=== PATIENT | female | born 1935 | race Caucasian/White ===

== ENCOUNTER 2019-03-30 14:40 | Inpatient (IN) | payer MEDICARE ==
[~2019-03-30] VITALS: Ht 165.1 cm; Wt 77.3 kg
[~2019-03-30 14:40] MED LIST: QUEtiapine 25 MG TABLET. PO SCH
[2019-03-30 15:18] LABS: HEMOGLOBIN 11.8 g/dL (12.0-15.5); RED BLOOD COUNT 3.71 x10^6/uL (3.50-5.40); RED CELL DISTRIBUTION WIDTH 13.6 % (11.5-14.5); WHITE BLOOD COUNT 8.7 x10^3/uL (4.0-11.0)
[2019-03-30 15:26] LABS: CALCIUM 8.7 mg/dL (8.5-10.1); CREATININE 1.3 mg/dL (0.6-1.0); GFR 39.3; MAGNESIUM 1.7 mg/dL (1.8-2.4); POTASSIUM 3.2 mmol/L (3.5-5.1)
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
[2019-03-30] MEDS ORDERED: POTASSIUM CHLORIDE 20 MEQ TABLET.ER. PO ONE (18:45)
[2019-03-30 19:33] LABS: BACTERIA,URINE MOD /HPF (0-FEW); BILIRUBIN,URINE NEG (NEG); CLARITY,URINE HAZY; COLOR,URINE YELLOW; GLUCOSE,URINE NEG (NEG); HYALINE CASTS, URINE FEW /HPF; NITRITE,URINE NEG (NEG); RBC,URINE RARE /HPF (0-2); SQUAMOUS EPITHELIAL CELL,UR FEW /LPF
[2019-03-30] MEDS ORDERED: levoFLOXacin 500 MG TABLET PO ONE (20:00)
[2019-03-30 20:30] VITALS: BP 175/90
[2019-03-30] MEDS ORDERED: MAGNESIUM HYDROXIDE 2,400 MG/30 ML ORAL.SUSP. PO PRN (20:45)
[2019-03-30] MEDS ORDERED: MAG HYDROX/AL HYDROX/SIMETH 30 ML ORAL.SUSP PO PRN (20:45)
[2019-03-30] MEDS ORDERED: METHYL SALICYLATE/MENTHOL TOPICAL OINTMENT 57GM TUBE. TP PRN (20:45)
--- NOTE | 2019-03-30 20:57 | PDOC ---
Exam Note: Marbin Note: Please also refer to the separate dictated note~for this date of service dictated separately. Discussed the patient with Nursing staff reviewed the chart.~Reviewed interim history and current functioning. Reviewed vital signs,~Labs/ Radiology~and current medications noted below. Continue current treatment with the changes noted in the dictated addendum note Assessment: Vital Signs/I&O: Vital Signs Date Time Temp Pulse Resp B/P (MAP) Pulse Ox O2 Delivery O2 Flow Rate FiO2 03/30/19 15:03 97.9 86 18 96 Room Air Labs: Laboratory Tests Test 03/30/19 15:04 03/30/19 18:10 White Blood Count 8.7 x10^3/uL (4.0-11.0) Red Blood Count 3.71 x10^6/uL (3.50-5.40) Hemoglobin 11.8 g/dL (12.0-15.5) L Hematocrit 36.0 % (36.0-47.0) Mean Corpuscular Volume 97 fL (79-100) Mean Corpuscular Hemoglobin 32 pg (25-35) Mean Corpuscular Hemoglobin Concent 33 g/dL (31-37) Red Cell Distribution Width 13.6 % (11.5-14.5) Platelet Count 222 x10^3/uL (140-400) Sodium Level 143 mmol/L (136-145) Potassium Level 3.2 mmol/L (3.5-5.1) L Chloride Level 106 mmol/L (98-107) Carbon Dioxide Level 29 mmol/L (21-32) Anion Gap 8 (6-14) Blood Urea Nitrogen 17 mg/dL (7-20) Creatinine 1.3 mg/dL (0.6-1.0) H Estimated GFR (Cockcroft-Gault) 39.3 Glucose Level 114 mg/dL (70-99) H Calcium Level 8.7 mg/dL (8.5-10.1) Magnesium Level 1.7 mg/dL (1.8-2.4) L Urine Collection Type Unknown Urine Color Yellow Urine Clarity Hazy Urine pH 5.5 Urine Specific [place] 1.010 Urine Protein Neg (NEG-TRACE) Urine Glucose (UA) Neg mg/dL (NEG) Urine Ketones (Stick) Neg mg/dL (NEG) Urine Blood Neg (NEG) Urine Nitrite Neg (NEG) Urine Bilirubin Neg (NEG) Urine Urobilinogen Dipstick 1.0 mg/dL (0.2 mg/dL) Urine Leukocyte Esterase Mod (NEG) Urine RBC Rare /HPF (0-2) Urine WBC 11-20 /HPF (0-4) Urine Squamous Epithelial Cells Few /LPF Urine Bacteria Mod /HPF (0-FEW) Urine Hyaline Casts Few /HPF Urine Mucus Slight /LPF Current Medications: Meds: Current Medications Medications (Trade) Dose Ordered Sig/Michael Route PRN Reason Start Time Stop Time Status Last Admin Dose Admin Potassium Chloride (Klor-Con) 40 meq 1X ONCE PO 03/30/19 18:45 03/30/19 18:46 DC 03/30/19 18:45 I have reviewed the current psychotropics carefully including drug interactions. Risk benefit ratio favors no change other than as noted in my dictated progress note. Diagnosis: Problems: (1) Disruptive behavior ELMA DOLAN MD Mar 30, 2019 20:57
[2019-03-30] MEDS ORDERED: LEVO75TA5 PO (22:21)
[2019-03-30] MEDS ORDERED: KETO15CR2 TP (22:21)
[2019-03-30] MEDS ORDERED: RAMI10CA53 PO (22:21)
[2019-03-30] MEDS ORDERED: NITR100C PO (22:21)
[2019-03-30] MEDS ORDERED: SUMA25TA3 PO (22:21)
[2019-03-30] MEDS ORDERED: ASPI-630 PO (22:21)
[2019-03-30] MEDS ORDERED: CITA10TA4 PO (22:21)
[2019-03-30] MEDS ORDERED: HYDR-2769 PO (22:21)
[2019-03-30] MEDS ORDERED: OLAN5TAB3 PO (22:21)
[2019-03-30] MEDS ORDERED: DONE5TAB7 PO (22:21)
[2019-03-30] MEDS: ACETAMINOPHEN 325 MG TABLET PO PRN (23:28)
--- NOTE | 2019-03-31 00:07 | EKG ---
[address] [address] Test Date: 2019-03-30 Test Time: 14:59:33 Pat Name: SHELDON QUINTANILLA Department: Room: Gender: F Digital Solutions Architect: : 1935 Requested By: SANG MAYNARD Order Number: [id number] Reading MD: Measurements Intervals [place] Rate: 81 P: 36 UT: 138 QRS: -35 QRSD: 88 T: 8 QT: 378 QTc: 445 Interpretive Statements SINUS RHYTHM ABNORMAL LEFT AXIS DEVIATION LEFT ANTERIOR FASCICULAR BLOCK CONSIDER LEFT VENTRICULAR HYPERTROPHY QRS(T) CONTOUR ABNORMALITY CONSIDER ANTEROSEPTAL MYOCARDIAL DAMAGE ABNORMAL ECG RI6.01 No previous ECG available for comparison
[2019-03-31] MEDS: LEVOTHYROXINE 75 MCG TABLET PO SCH (05:45)
[2019-03-31 06:48] VITALS: BP 160/83
[2019-03-31 07:06] LABS: BASO # 0.1 x10^3/uL (0.0-0.2); BASO % 1 % (0-3); EOS # 0.2 x10^3/uL (0.0-0.7); EOS % 3 % (0-3); GFR 53.2; HEMOGLOBIN 12.2 g/dL (12.0-15.5); LYMPH % 25 % (24-48); MEAN CORPUSCULAR HEMOGLOBIN 32 pg (25-35); MEAN CORPUSCULAR HGB CONC 33 g/dL (31-37); MEAN CORPUSCULAR VOLUME 97 fL (79-100); MONO # 0.7 x10^3/uL (0.0-1.1); MONO % 8 % (0-9); NEUT # 5.1 x10^3uL (1.8-7.7); NEUT % 64 % (31-73); PLATELET COUNT 246 x10^3/uL (140-400); POTASSIUM 3.9 mmol/L (3.5-5.1); RED BLOOD COUNT 3.81 x10^6/uL (3.50-5.40); RED CELL DISTRIBUTION WIDTH 13.3 % (11.5-14.5)
[2019-03-31] MEDS ORDERED: BUSP15TA PO (07:54)
[2019-03-31] MEDS ORDERED: NITROFURANTOIN MONOHYD/M-CRYST 100 MG CAPSULE. PO SCH (09:00)
[2019-03-31] MEDS: ASPIRIN 81 MG TAB.CHEW PO SCH (09:19)
[2019-03-31] MEDS: levoFLOXacin 250 MG TABLET PO SCH (09:20)
[2019-03-31] MEDS: LISINOPRIL 20 MG TABLET PO SCH (09:20)
[2019-03-31] MEDS: CITALOPRAM 10 MG TABLET. PO SCH (09:20)
[2019-03-31] MEDS: KETOCONAZOLE 2% TOPICAL CREAM 30GM TUBE. TP SCH (09:27)
[2019-03-31 16:20] VITALS: BP 167/83
[2019-03-31] MEDS: DONEPEZIL HCL 5 MG TABLET. PO SCH (20:33)
[2019-03-31] MEDS: LACTOBACILLUS RHAMNOSUS GG 1 CAPSULE. PO SCH (20:34)
[2019-03-31] MEDS: OLANZapine 5 MG TABLET PO SCH (20:34)
--- NOTE | 2019-03-31 21:07 | PDOC ---
Exam Note: Marbin Note: Please also refer to the separate dictated note~for this date of service dictated separately.~Patient seen individually. Discussed the patient with Nursing staff reviewed the chart.~Reviewed interim history and current functioning. Reviewed vital signs,~Labs/ Radiology~and current medications noted below. Continue current treatment with the changes noted in the dictated addendum note Assessment: Vital Signs/I&O: Vital Signs Date Time Temp Pulse Resp B/P (MAP) Pulse Ox O2 Delivery O2 Flow Rate FiO2 03/31/19 16:20 98.2 98 20 167/83 (111) 93 03/31/19 06:48 Room Air I & O 03/30/19 03/30/19 03/31/19 15:00 23:00 07:00 Intake Total 120 ml Balance 120 ml Labs: Laboratory Tests Test 03/31/19 06:47 03/31/19 07:35 03/31/19 11:32 03/31/19 17:22 White Blood Count 8.0 x10^3/uL (4.0-11.0) Red Blood Count 3.81 x10^6/uL (3.50-5.40) Hemoglobin 12.2 g/dL (12.0-15.5) Hematocrit 37.0 % (36.0-47.0) Mean Corpuscular Volume 97 fL (79-100) Mean Corpuscular Hemoglobin 32 pg (25-35) Mean Corpuscular Hemoglobin Concent 33 g/dL (31-37) Red Cell Distribution Width 13.3 % (11.5-14.5) Platelet Count 246 x10^3/uL (140-400) Neutrophils (%) (Auto) 64 % (31-73) Lymphocytes (%) (Auto) 25 % (24-48) Monocytes (%) (Auto) 8 % (0-9) Eosinophils (%) (Auto) 3 % (0-3) Basophils (%) (Auto) 1 % (0-3) Neutrophils # (Auto) 5.1 x10^3uL (1.8-7.7) Lymphocytes # (Auto) 2.0 x10^3/uL (1.0-4.8) Monocytes # (Auto) 0.7 x10^3/uL (0.0-1.1) Eosinophils # (Auto) 0.2 x10^3/uL (0.0-0.7) Basophils # (Auto) 0.1 x10^3/uL (0.0-0.2) Sodium Level 144 mmol/L (136-145) Potassium Level 3.9 mmol/L (3.5-5.1) Chloride Level 105 mmol/L (98-107) Carbon Dioxide Level 29 mmol/L (21-32) Anion Gap 10 (6-14) Blood Urea Nitrogen 19 mg/dL (7-20) Creatinine 1.0 mg/dL (0.6-1.0) Estimated GFR (Cockcroft-Gault) 53.2 Glucose Level 126 mg/dL (70-99) H Calcium Level 9.0 mg/dL (8.5-10.1) Glucose (Fingerstick) 142 mg/dL (70-99) H 110 mg/dL (70-99) H 147 mg/dL (70-99) H Test 03/31/19 19:24 Glucose (Fingerstick) 145 mg/dL (70-99) H Current Medications: Meds: Current Medications Medications (Trade) Dose Ordered Sig/Michael Route PRN Reason Start Time Stop Time Status Last Admin Dose Admin Levofloxacin (Levaquin) 250 mg DAILY PO 03/31/19 09:00 03/31/19 09:20 Citalopram Hydrobromide (CeleXA) 10 mg DAILY PO 03/31/19 09:00 03/31/19 09:20 Donepezil HCl (Aricept) 5 mg QHS PO 03/31/19 21:00 03/31/19 20:33 Olanzapine (ZyPREXA) 5 mg QHS PO 03/31/19 21:00 03/31/19 20:34 Aspirin (Children'S Aspirin) 81 mg DAILY PO 03/31/19 09:00 03/31/19 09:19 Levothyroxine Sodium (Synthroid) 75 mcg DAILY06 PO 03/31/19 06:00 03/31/19 05:45 Nitrofurantoin Macrocrystals (Macrobid) 100 mg BID PO 03/31/19 09:00 03/31/19 17:39 DC 03/31/19 09:20 Lisinopril (Prinivil) 20 mg DAILY PO 03/31/19 09:00 03/31/19 09:20 Olanzapine (ZyPREXA ZYDIS) 2.5 mg PRN Q2HR PRN PO PSYCHOSIS 03/31/19 07:55 03/31/19 09:20 Lactobacillus Rhamnosus (Culturelle) 1 cap BID PO 03/31/19 21:00 03/31/19 20:34 I have reviewed the current psychotropics carefully including drug interactions. Risk benefit ratio favors no change other than as noted in my dictated progress note. Diagnosis: Problems: (1) Disruptive behavior (2) Anxiety disorder (3) Major neurocognitive disorder, due to vascular disease, with behavioral disturbance, mild (4) Impulse control disorder (5) Dementia, vascular, with delusions (6) Dementia, vascular, with depression (7) Dementia in Alzheimer's disease with delusions (8) Dementia in Alzheimer's disease with depression ELMA DOLAN MD Mar 31, 2019 21:07
[2019-04-01 00:06] LABS: HEMOGLOBIN A1C 6.2 % (4.8-5.6)
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
[2019-04-01] MEDS: LEVOTHYROXINE 75 MCG TABLET PO SCH (05:33)
[2019-04-01 06:26] VITALS: BP 174/93
[2019-04-01] MEDS: CITALOPRAM 10 MG TABLET. PO SCH (08:35)
[2019-04-01] MEDS: LACTOBACILLUS RHAMNOSUS GG 1 CAPSULE. PO SCH ×2 (08:35→20:07)
[2019-04-01] MEDS: levoFLOXacin 250 MG TABLET PO SCH (08:35)
[2019-04-01] MEDS: LISINOPRIL 20 MG TABLET PO SCH (08:35)
[2019-04-01] MEDS: ASPIRIN 81 MG TAB.CHEW PO SCH (08:35)
[2019-04-01] MEDS: KETOCONAZOLE 2% TOPICAL CREAM 30GM TUBE. TP SCH (09:00)
[2019-04-01] MEDS: HYDROcodone/APAP 10/325 1 TAB TABLET PO PRN (10:55)
[2019-04-01 16:03] VITALS: BP 140/80
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
[2019-04-01] MEDS: OLANZapine 5 MG TABLET PO SCH (20:07)
[2019-04-01] MEDS: QUEtiapine 25 MG TABLET. PO SCH (20:08)
[2019-04-01] MEDS: ACETAMINOPHEN 325 MG TABLET PO PRN (20:08)
[2019-04-01] MEDS: DONEPEZIL HCL 5 MG TABLET. PO SCH (20:08)
--- NOTE | 2019-04-01 21:06 | PDOC ---
Exam Note: Marbin Note: Please also refer to the separate dictated note~for this date of service dictated separately.~Patient seen individually. Discussed the patient with Nursing staff reviewed the chart.~Reviewed interim history and current functioning. Reviewed vital signs,~Labs/ Radiology~and current medications noted below. Continue current treatment with the changes noted in the dictated addendum note Assessment: Vital Signs/I&O: Vital Signs Date Time Temp Pulse Resp B/P (MAP) Pulse Ox O2 Delivery O2 Flow Rate FiO2 04/01/19 16:03 97.8 78 20 140/80 (100) 97 04/01/19 12:10 Room Air I & O 03/31/19 03/31/19 04/01/19 15:00 23:00 07:00 Intake Total 480 ml 200 ml 240 ml Balance 480 ml 200 ml 240 ml Labs: Laboratory Tests Test 04/01/19 07:16 Glucose (Fingerstick) 122 mg/dL (70-99) H Current Medications: Meds: Current Medications Medications (Trade) Dose Ordered Sig/Michael Route PRN Reason Start Time Stop Time Status Last Admin Dose Admin Quetiapine Fumarate (SEROquel) 12.5 mg QHS PO 04/01/19 21:00 04/01/19 20:08 I have reviewed the current psychotropics carefully including drug interactions. Risk benefit ratio favors no change other than as noted in my dictated progress note. Diagnosis: Problems: (1) Anxiety disorder (2) Major neurocognitive disorder, due to vascular disease, with behavioral disturbance, mild (3) Impulse control disorder (4) Dementia, vascular, with delusions (5) Dementia, vascular, with depression (6) Dementia in Alzheimer's disease with delusions (7) Dementia in Alzheimer's disease with depression ELMA DOLAN MD Apr 01, 2019 21:06
[2019-04-02] MEDS: LEVOTHYROXINE 75 MCG TABLET PO SCH (05:39)
[2019-04-02 05:46] VITALS: BP 153/83
[2019-04-02] MEDS: CITALOPRAM 10 MG TABLET. PO SCH (08:52)
[2019-04-02] MEDS: ASPIRIN 81 MG TAB.CHEW PO SCH (08:52)
[2019-04-02] MEDS: LACTOBACILLUS RHAMNOSUS GG 1 CAPSULE. PO SCH ×2 (08:52→20:04)
[2019-04-02] MEDS: LISINOPRIL 20 MG TABLET PO SCH (08:53)
[2019-04-02] MEDS: KETOCONAZOLE 2% TOPICAL CREAM 30GM TUBE. TP SCH (09:00)
[2019-04-02 16:04] VITALS: BP 145/62
[2019-04-02] MEDS: DONEPEZIL HCL 5 MG TABLET. PO SCH (20:04)
[2019-04-02] MEDS: OLANZapine 5 MG TABLET PO SCH (20:04)
[2019-04-02] MEDS: HYDROcodone/APAP 10/325 1 TAB TABLET PO PRN (20:04)
[2019-04-02] MEDS: QUEtiapine 25 MG TABLET. PO SCH (20:04)
--- NOTE | 2019-04-02 22:37 | PDOC ---
Exam Note: Marbin Note: Please also refer to the separate dictated note~for this date of service dictated separately.~Patient seen individually. Discussed the patient with Nursing staff reviewed the chart.~Reviewed interim history and current functioning. Reviewed vital signs,~Labs/ Radiology~and current medications noted below. Continue current treatment with the changes noted in the dictated addendum note Assessment: Vital Signs/I&O: Vital Signs Date Time Temp Pulse Resp B/P (MAP) Pulse Ox O2 Delivery O2 Flow Rate FiO2 04/02/19 21:06 18 97 Room Air 04/02/19 16:04 98.8 69 145/62 (89) I & O 04/01/19 04/01/19 04/02/19 15:00 23:00 07:00 Intake Total 480 ml 240 ml 240 ml Balance 480 ml 240 ml 240 ml Current Medications: I have reviewed the current psychotropics carefully including drug interactions. Risk benefit ratio favors no change other than as noted in my dictated progress note. Diagnosis: Problems: (1) Dementia (2) Disruptive behavior (3) Anxiety disorder (4) Major neurocognitive disorder, due to vascular disease, with behavioral disturbance, mild (5) Impulse control disorder (6) Dementia, vascular, with delusions (7) Dementia, vascular, with depression (8) Dementia in Alzheimer's disease with delusions (9) Dementia in Alzheimer's disease with depression ELMA DOLAN MD Apr 02, 2019 22:37
[2019-04-03 05:56] VITALS: BP 185/67
[2019-04-03] MEDS: LEVOTHYROXINE 75 MCG TABLET PO SCH (06:00)
[2019-04-03] MEDS: ASPIRIN 81 MG TAB.CHEW PO SCH (08:00)
[2019-04-03] MEDS: CITALOPRAM 10 MG TABLET. PO SCH (08:00)
[2019-04-03] MEDS: LISINOPRIL 20 MG TABLET PO SCH (08:03)
[2019-04-03] MEDS: LACTOBACILLUS RHAMNOSUS GG 1 CAPSULE. PO SCH ×2 (08:03→20:30)
[2019-04-03] MEDS: KETOCONAZOLE 2% TOPICAL CREAM 30GM TUBE. TP SCH (08:06)
[2019-04-03] MEDS: QUEtiapine 25 MG TABLET. PO SCH ×2 (12:27→20:30)
[2019-04-03 16:16] VITALS: BP 147/78
[2019-04-03] MEDS: DONEPEZIL HCL 5 MG TABLET. PO SCH (20:30)
[2019-04-03] MEDS: OLANZapine 5 MG TABLET PO SCH (20:30)
[2019-04-03] MEDS: HYDROcodone/APAP 10/325 1 TAB TABLET PO PRN (20:32)
--- NOTE | 2019-04-03 20:54 | PDOC ---
Exam Note: Marbin Note: Please also refer to the separate dictated note~for this date of service dictated separately.~Patient seen individually. Discussed the patient with Nursing staff reviewed the chart.~Reviewed interim history and current functioning. Reviewed vital signs,~Labs/ Radiology~and current medications noted below. Continue current treatment with the changes noted in the dictated addendum note Assessment: Vital Signs/I&O: Vital Signs Date Time Temp Pulse Resp B/P (MAP) Pulse Ox O2 Delivery O2 Flow Rate FiO2 04/03/19 20:32 18 94 04/03/19 16:16 97.9 103 147/78 (101) 04/02/19 21:06 Room Air I & O 04/02/19 04/02/19 04/03/19 15:00 23:00 07:00 Intake Total 240 ml 480 ml Balance 240 ml 480 ml Current Medications: Meds: Current Medications Medications (Trade) Dose Ordered Sig/Michael Route PRN Reason Start Time Stop Time Status Last Admin Dose Admin Quetiapine Fumarate (SEROquel) 12.5 mg 0900,1300 PO 04/03/19 13:00 04/03/19 12:27 I have reviewed the current psychotropics carefully including drug interactions. Risk benefit ratio favors no change other than as noted in my dictated progress note. Diagnosis: Problems: (1) Anxiety disorder (2) Major neurocognitive disorder, due to vascular disease, with behavioral disturbance, mild (3) Impulse control disorder (4) Dementia, vascular, with delusions (5) Dementia, vascular, with depression (6) Dementia in Alzheimer's disease with delusions (7) Dementia in Alzheimer's disease with depression ELMA DOLAN MD Apr 03, 2019 20:54
--- NOTE | 2019-04-03 22:16 | RAD ---
Exam: Left foot 3 views INDICATION: Swollen TECHNIQUE: Frontal, lateral and oblique views of the left foot Comparisons: None FINDINGS: Bone mineralization is normal. No acute or healed fractures. Soft tissues are unremarkable. Joint spaces are well-maintained. IMPRESSION: No acute osseous abnormality. Electronically signed by: Alma Edgar MD (04/03/2019 10:13 PM) [facility]
--- NOTE | 2019-04-03 22:39 | RAD ---
Exam: Left hand 3 views INDICATION: Swelling TECHNIQUE: Frontal, lateral and oblique views of the left hand Comparisons: None FINDINGS: Small osseous defect along the radial aspect of the base of the third metacarpal. 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 Bone mineralization is normal. Soft tissues are unremarkable. IMPRESSION: Question small fracture at the base of the third metacarpal seen only on oblique view. CT can better evaluate. Electronically signed by: Alma Edgar MD (04/03/2019 10:36 PM) [facility]
--- NOTE | 2019-04-04 00:15 | PN ---
DATE: 04/01/2019 PSYCHIATRIC PROGRESS NOTE This late entry 04/01/2019 covers the elements not covered in my initial note. SUBJECTIVE: I met with the patient in the evening. Per Fahad RN, the patient slept 8 hours previous night. She is "up and down all day" per nursing report. At times, she is calm, compliant, then confused, hyperverbal, wandering into other patient's rooms paranoid. She had Zyprexa p.r.n. with some relief. REVIEW OF SYSTEMS: No CV, , pulmonary, eye, ENT system symptoms on review. Reliability poor. MENTAL STATUS EXAM: Oriented to herself. Insight, judgment, recent and remote memory, attention, concentration, fund of knowledge poor, consistent with her diagnoses. IMPRESSION: Major neurocognitive disorder, Alzheimer, vascular with delusion, depression, behavioral disturbance; anxiety disorder, unspecified; impulse control disorder, unspecified. PLAN: Continue Celexa 10 mg a day, Aricept 5 mg a day, Zyprexa p.r.n. Start Seroquel 12.5 mg p.o. at bedtime for her psychosis and mood lability and agitation. Adjust as clinically indicated. ELMA DOLAN MD DR: YADIRA/nito JOB#: [id number] / [id number]
[2019-04-04] MEDS: HYDROcodone/APAP 10/325 1 TAB TABLET PO PRN ×2 (05:56→20:18)
[2019-04-04] MEDS: LEVOTHYROXINE 75 MCG TABLET PO SCH (05:58)
[2019-04-04 06:11] VITALS: BP 136/61
[2019-04-04] MEDS: CITALOPRAM 10 MG TABLET. PO SCH (08:09)
[2019-04-04] MEDS: ASPIRIN 81 MG TAB.CHEW PO SCH (08:10)
[2019-04-04] MEDS: QUEtiapine 25 MG TABLET. PO SCH ×3 (08:10→20:18)
[2019-04-04] MEDS: LACTOBACILLUS RHAMNOSUS GG 1 CAPSULE. PO SCH ×2 (08:10→20:17)
[2019-04-04] MEDS: LISINOPRIL 20 MG TABLET PO SCH (08:12)
[2019-04-04] MEDS: KETOCONAZOLE 2% TOPICAL CREAM 30GM TUBE. TP SCH (09:00)
[2019-04-04 15:20] VITALS: BP 131/81
--- NOTE | 2019-04-04 16:40 | RAD ---
Examination: CT UPPR EXTREMTY WO CONTRST LT History: Pain. Third metacarpal basilar fracture is questioned. Comparison/Correlation: Left hand 3 view x-ray exam Findings: Axial images of the left hand were obtained. Sagittal and coronal reformatted images were provided. Imaging was performed from the distal radial shaft level to the distal phalanges. Exam is limited due to inability to position the patient. First, metacarpal joint degenerative remodeling is present. Soft tissue calcifications are noted in the radiocarpal joint region. No acute fracture or bone destruction. Osteopenia is noted. Joint spaces are intact with no dislocation evident. Subcutaneous edema of the second digit proximally is seen. Mild subcutaneous emphysema at the dorsal aspect of the fourth and fifth metacarpophalangeal joint regions. Impression: No acute fracture. PQRS Compliance Statement: One or more of the following individualized dose reduction techniques were utilized for this examination: 1. Automated exposure control 2. Adjustment of the mA and/or kV according to patient size 3. Use of iterative reconstruction technique Electronically signed by: Silvio Ribeiro MD (04/04/2019 4:38 PM) [facility]
[2019-04-04] MEDS: DONEPEZIL HCL 5 MG TABLET. PO SCH (20:18)
[2019-04-04] MEDS: OLANZapine 5 MG TABLET PO SCH (20:18)
--- NOTE | 2019-04-04 21:39 | PDOC ---
Exam Note: Marbin Note: Please also refer to the separate dictated note~for this date of service dictated separately.~Patient seen individually. Discussed the patient with Nursing staff reviewed the chart.~Reviewed interim history and current functioning. Reviewed vital signs,~Labs/ Radiology~and current medications noted below. Continue current treatment with the changes noted in the dictated addendum note Assessment: Vital Signs/I&O: Vital Signs Date Time Temp Pulse Resp B/P (MAP) Pulse Ox O2 Delivery O2 Flow Rate FiO2 04/04/19 20:18 97 04/04/19 15:20 99.1 92 20 131/81 (98) 04/04/19 05:56 Room Air I & O 04/03/19 04/03/19 04/04/19 15:00 23:00 07:00 Intake Total 0 ml 360 ml Balance 0 ml 360 ml Current Medications: Meds: Current Medications Medications (Trade) Dose Ordered Sig/Michael Route PRN Reason Start Time Stop Time Status Last Admin Dose Admin Quetiapine Fumarate (SEROquel) 25 mg TID PO 04/04/19 21:00 04/04/19 20:18 Acetaminophen/ Hydrocodone Bitart (Lortab 10/325) 0.5 tab PRN Q4HRS PRN PO PAIN 04/04/19 20:00 04/04/19 20:18 I have reviewed the current psychotropics carefully including drug interactions. Risk benefit ratio favors no change other than as noted in my dictated progress note. Diagnosis: Problems: (1) Disruptive behavior (2) Anxiety disorder (3) Major neurocognitive disorder, due to vascular disease, with behavioral disturbance, mild (4) Impulse control disorder (5) Dementia, vascular, with delusions (6) Dementia, vascular, with depression (7) Dementia in Alzheimer's disease with delusions (8) Dementia in Alzheimer's disease with depression ELMA DOLAN MD Apr 04, 2019 21:39
--- NOTE | 2019-04-05 01:46 | PN ---
DATE: 04/03/2019 PSYCHIATRIC PROGRESS NOTE This late entry 04/03/2019 covers elements not covered in my initial note. SUBJECTIVE: I met with the patient in the evening. The patient slept 4-1/4 hours previous night. She has been anxious, restless, constantly moving. Received Zyprexa x 2 p.r.n. REVIEW OF SYSTEMS: No CV, , pulmonary, eye, ENT system symptoms on review. Reliability poor. MENTAL STATUS EXAM: Oriented to herself. Insight, judgment, recent and remote memory, attention, concentration, fund of knowledge poor, consistent with her diagnosis mentioned in my initial note. PLAN: No change from initial note, but we have increased the Seroquel, may need to increase further again depending on her progress. MAN German DOLAN MD DR: YADIRA/nito JOB#: [id number] / [id number]
--- NOTE | 2019-04-05 01:49 | PN ---
DATE: 04/02/2019 PSYCHIATRIC PROGRESS NOTE This late entry 04/02/2019 covers elements not covered in my initial note. SUBJECTIVE: I met with the patient evening of 04/02/2019. The patient slept 6 hours previous night. She has been anxious, restless, confused, delusional, believes she is working here, constantly up and down the hallway, difficult to redirect. REVIEW OF SYSTEMS: No CV, , pulmonary, eye, ENT system symptoms on review. Reliability poor. MENTAL STATUS EXAM: Oriented to herself. Insight, judgment, recent and remote memory, attention, concentration, fund of knowledge poor, consistent with her diagnosis mentioned in my initial note. PLAN: No change from initial note, but we will increase the Seroquel from 12.5 mg at bedtime to 12.5 mg t.i.d. Continue Zyprexa p.r.n., Celexa 10 mg a day, Aricept 5 mg a day for now. ELMA DOLAN MD DR: YADIRA/nito JOB#: [id number] / [id number]
[2019-04-05] MEDS: HYDROcodone/APAP 10/325 1 TAB TABLET PO PRN ×3 (02:57→23:45)
[2019-04-05] MEDS: ACETAMINOPHEN 325 MG TABLET PO PRN (05:25)
[2019-04-05] MEDS: LEVOTHYROXINE 75 MCG TABLET PO SCH (05:25)
[2019-04-05 05:41] VITALS: BP 137/74
[2019-04-05 07:09] LABS: BASO % 0 % (0-3); EOS % 1 % (0-3); HEMATOCRIT 36.5 % (36.0-47.0); HEMOGLOBIN 12.1 g/dL (12.0-15.5); LYMPH # 1.6 x10^3/uL (1.0-4.8); LYMPH % 15 % (24-48); MEAN CORPUSCULAR HEMOGLOBIN 32 pg (25-35); MEAN CORPUSCULAR HGB CONC 33 g/dL (31-37); MEAN CORPUSCULAR VOLUME 97 fL (79-100); MONO # 0.8 x10^3/uL (0.0-1.1); MONO % 8 % (0-9); NEUT # 7.9 x10^3uL (1.8-7.7); NEUT % 76 % (31-73); PLATELET COUNT 287 x10^3/uL (140-400); RED BLOOD COUNT 3.75 x10^6/uL (3.50-5.40); RED CELL DISTRIBUTION WIDTH 13.2 % (11.5-14.5); WHITE BLOOD COUNT 10.4 x10^3/uL (4.0-11.0)
[2019-04-05 07:22] LABS: ALBUMIN/GLOBULIN RATIO 0.7 (1.0-1.7); C REACTIVE PROTEIN 142.4 mg/L (0-3.3); CALCIUM 8.8 mg/dL (8.5-10.1); CREATININE 0.9 mg/dL (0.6-1.0); GFR 60.1; TOTAL BILIRUBIN 0.6 mg/dL (0.2-1.0); TOTAL PROTEIN 7.2 g/dL (6.4-8.2); URIC ACID 4.3 mg/dL (2.6-6.0)
[2019-04-05 08:13] LABS: SEDIMENTATION RATE 81 (0-25)
[2019-04-05] MEDS: KETOCONAZOLE 2% TOPICAL CREAM 30GM TUBE. TP SCH (08:38)
[2019-04-05] MEDS: LISINOPRIL 20 MG TABLET PO SCH (08:39)
[2019-04-05] MEDS: CITALOPRAM 10 MG TABLET. PO SCH (08:39)
[2019-04-05] MEDS: LACTOBACILLUS RHAMNOSUS GG 1 CAPSULE. PO SCH ×2 (08:39→20:31)
[2019-04-05] MEDS: QUEtiapine 25 MG TABLET. PO SCH ×3 (08:39→20:31)
[2019-04-05] MEDS: ASPIRIN 81 MG TAB.CHEW PO SCH (08:39)
[2019-04-05 16:00] VITALS: BP 114/77
--- NOTE | 2019-04-05 18:21 | RAD ---
VENOUS LOWER EXTREMITY LEFT History: Left lower extremity swelling Comparison: None. Discussion: Multiple longitudinal and transverse high resolution real-time images of the venous system of left lower extremity were obtained with color and Doppler sampling. The common femoral, superficial femoral, popliteal and proximal calf veins are all patent and demonstrate normal flow and compressibility. Normal respiratory phasicity and augmentation is present. Impression: 1. No evidence of deep vein thrombosis. Electronically signed by: Brian Pineda DO (04/05/2019 6:18 PM) [facility]
[2019-04-05] MEDS: DONEPEZIL HCL 5 MG TABLET. PO SCH (20:31)
--- NOTE | 2019-04-05 21:56 | PDOC ---
Exam Note: Marbin Note: Please also refer to the separate dictated note~for this date of service dictated separately.~Patient seen individually. Discussed the patient with Nursing staff reviewed the chart.~Reviewed interim history and current functioning. Reviewed vital signs,~Labs/ Radiology~and current medications noted below. Continue current treatment with the changes noted in the dictated addendum note Assessment: Vital Signs/I&O: Vital Signs Date Time Temp Pulse Resp B/P (MAP) Pulse Ox O2 Delivery O2 Flow Rate FiO2 04/05/19 16:00 98.4 74 16 114/77 (89) 96 04/04/19 05:56 Room Air I & O 04/04/19 04/04/19 04/05/19 15:00 23:00 07:00 Intake Total 240 ml 360 ml Balance 240 ml 360 ml Labs: Laboratory Tests Test 04/05/19 06:49 White Blood Count 10.4 x10^3/uL (4.0-11.0) Red Blood Count 3.75 x10^6/uL (3.50-5.40) Hemoglobin 12.1 g/dL (12.0-15.5) Hematocrit 36.5 % (36.0-47.0) Mean Corpuscular Volume 97 fL (79-100) Mean Corpuscular Hemoglobin 32 pg (25-35) Mean Corpuscular Hemoglobin Concent 33 g/dL (31-37) Red Cell Distribution Width 13.2 % (11.5-14.5) Platelet Count 287 x10^3/uL (140-400) Neutrophils (%) (Auto) 76 % (31-73) H Lymphocytes (%) (Auto) 15 % (24-48) L Monocytes (%) (Auto) 8 % (0-9) Eosinophils (%) (Auto) 1 % (0-3) Basophils (%) (Auto) 0 % (0-3) Neutrophils # (Auto) 7.9 x10^3uL (1.8-7.7) H Lymphocytes # (Auto) 1.6 x10^3/uL (1.0-4.8) Monocytes # (Auto) 0.8 x10^3/uL (0.0-1.1) Eosinophils # (Auto) 0.0 x10^3/uL (0.0-0.7) Basophils # (Auto) 0.0 x10^3/uL (0.0-0.2) Erythrocyte Sedimentation Rate 81 (0-25) H Sodium Level 140 mmol/L (136-145) Potassium Level 4.0 mmol/L (3.5-5.1) Chloride Level 103 mmol/L (98-107) Carbon Dioxide Level 26 mmol/L (21-32) Anion Gap 11 (6-14) Blood Urea Nitrogen 17 mg/dL (7-20) Creatinine 0.9 mg/dL (0.6-1.0) Estimated GFR (Cockcroft-Gault) 60.1 BUN/Creatinine Ratio 19 (6-20) Glucose Level 168 mg/dL (70-99) H Uric Acid 4.3 mg/dL (2.6-6.0) Calcium Level 8.8 mg/dL (8.5-10.1) Total Bilirubin 0.6 mg/dL (0.2-1.0) Aspartate Amino Transferase (AST) 14 U/L (15-37) L Alanine Aminotransferase (ALT) 18 U/L (14-59) Alkaline Phosphatase 107 U/L (46-116) C-Reactive Protein 142.4 mg/L (0-3.3) H Total Protein 7.2 g/dL (6.4-8.2) Albumin 3.0 g/dL (3.4-5.0) L Albumin/Globulin Ratio 0.7 (1.0-1.7) L Current Medications: I have reviewed the current psychotropics carefully including drug interactions. Risk benefit ratio favors no change other than as noted in my dictated progress note. Diagnosis: Problems: (1) Disruptive behavior (2) Anxiety disorder (3) Major neurocognitive disorder, due to vascular disease, with behavioral disturbance, mild (4) Impulse control disorder (5) Dementia, vascular, with delusions (6) Dementia, vascular, with depression (7) Dementia in Alzheimer's disease with delusions (8) Dementia in Alzheimer's disease with depression ELMA DOLAN MD Apr 05, 2019 21:55
--- NOTE | 2019-04-06 00:05 | PN ---
DATE: 04/04/2019 PSYCHIATRIC PROGRESS NOTE This late entry 04/04/2019 covers elements not covered in my initial note. SUBJECTIVE: I met with the patient evening of 04/04/2019. Per AMOL Acevedo, the patient slept 5-1/2 hours previous night. Previous night, she was delusional, anxious, restless, but redirectable. She continues to be quite paranoid, suspicious, during the day per nursing report, constantly up and down the hallway. Received Zyprexa Zydis x 2 due to her anxiety, restlessness, paranoia, irritability. She does have metacarpal fracture, left hand. Nursing staff wondered this could be attributed to her banging her hands on the door couple of days back. I will defer to Dr. Hylton. REVIEW OF SYSTEMS: No CV, , pulmonary, eye, ENT system symptoms on review. Reliability poor. MENTAL STATUS EXAM: Oriented to herself. Insight, judgment, recent and remote memory, attention, concentration, fund of knowledge poor, consistent with her diagnoses. IMPRESSION: Major neurocognitive disorder, Alzheimer, vascular with delusion, depression, behavioral disturbance; anxiety disorder, unspecified; impulse control disorder, unspecified. PLAN: Continue Seroquel, but we will increase this from 12.5 mg t.i.d. to 25 mg t.i.d. Continue Zyprexa p.r.n. and we will gradually discontinue the scheduled Zyprexa. Maintain Celexa 10 mg a day, may need to increase the Aricept, but it probably has little beneficial effect at this stage of her neurocognitive disorder. We will consider Depakote as a mood stabilizer if symptoms persist despite all of the above. MAN German DOLAN MD DR: YADIRA/nito JOB#: [id number] / [id number]
[2019-04-06] MEDS: LEVOTHYROXINE 75 MCG TABLET PO SCH (06:15)
[2019-04-06 06:27] VITALS: BP 132/87
[2019-04-06] MEDS: QUEtiapine 25 MG TABLET. PO SCH ×3 (08:12→19:50)
[2019-04-06] MEDS: ASPIRIN 81 MG TAB.CHEW PO SCH (08:12)
[2019-04-06] MEDS: LISINOPRIL 20 MG TABLET PO SCH (08:12)
[2019-04-06] MEDS: CITALOPRAM 10 MG TABLET. PO SCH (08:12)
[2019-04-06] MEDS: LACTOBACILLUS RHAMNOSUS GG 1 CAPSULE. PO SCH ×2 (08:12→19:49)
[2019-04-06] MEDS: HYDROcodone/APAP 10/325 1 TAB TABLET PO PRN ×2 (08:22→14:32)
[2019-04-06] MEDS: KETOCONAZOLE 2% TOPICAL CREAM 30GM TUBE. TP SCH (09:00)
--- NOTE | 2019-04-06 14:11 | RAD ---
EXAM: Limited bone scintigraphy. HISTORY: Elevated inflammatory markers, left hand inflammation. COMPARISON: CT 04/04/2019. FINDINGS: 22 mCi technetium 99m MDP was administered intravenously. Scintigraphic images of the hands and forearms was performed bilaterally after a delay. There is focal uptake in the region of the first carpometacarpal and triscaphe articulations. There are lesser foci of uptake in the region of the triquetrum/pisiform and proximal lunate. More diffusely, there is greater uptake throughout the skeleton of the left forearm and hand in comparison with the right. IMPRESSION: 1. Focal uptake within the carpus as detailed above may reflect osteoarthritis or possibly crystalline arthropathy given chondrocalcinosis on CT. 2. More diffuse mild uptake throughout the left hand and forearm in comparison with the right may reflect hyperemia throughout the left upper extremity, or possibly complex regional pain syndrome. Correlate with other data. Electronically signed by: Luis Desouza MD (04/06/2019 2:08 PM) [facility]
[2019-04-06 15:39] VITALS: BP 119/64
[2019-04-06] MEDS ORDERED: NAPROXEN 500 MG TABLET PO ONE (16:45)
[2019-04-06] MEDS: CHOLECALCIFEROL (VITAMIN D3) 50,000 UNIT CAPSULE PO SCH (17:17)
[2019-04-06] MEDS: CYANOCOBALAMIN (VITAMIN B-12) 1,000 MCG/ML VIAL IM SCH (17:19)
[2019-04-06] MEDS: DONEPEZIL HCL 5 MG TABLET. PO SCH (19:49)
[2019-04-06] MEDS: NAPROXEN 250 MG TABLET PO SCH (19:49)
--- NOTE | 2019-04-06 21:58 | PDOC ---
Exam Note: Marbin Note: Please also refer to the separate dictated note~for this date of service dictated separately.~Patient seen individually. Discussed the patient with Nursing staff reviewed the chart.~Reviewed interim history and current functioning. Reviewed vital signs,~Labs/ Radiology~and current medications noted below. Continue current treatment with the changes noted in the dictated addendum note Assessment: Vital Signs/I&O: Vital Signs Date Time Temp Pulse Resp B/P (MAP) Pulse Ox O2 Delivery O2 Flow Rate FiO2 04/06/19 17:15 18 99 04/06/19 15:39 98.7 97 119/64 (82) 04/06/19 14:32 Room Air I & O 04/05/19 04/05/19 04/06/19 15:00 23:00 07:00 Intake Total 720 ml 120 ml Balance 720 ml 120 ml Current Medications: Meds: Current Medications Medications (Trade) Dose Ordered Sig/Michael Route PRN Reason Start Time Stop Time Status Last Admin Dose Admin Vitamin D (Vitamin D3) 50,000 unit WEEKLY PO 04/06/19 17:00 04/06/19 17:17 Cyanocobalamin (Vitamin B-12) 1,000 mcg WEEKLY IM 04/06/19 17:00 04/06/19 17:19 Naproxen (Naprosyn) 500 mg ONCE ONCE PO 04/06/19 16:45 04/06/19 16:52 DC 04/06/19 17:19 Naproxen (Naprosyn) 250 mg TID PO 04/06/19 21:00 04/06/19 19:49 I have reviewed the current psychotropics carefully including drug interactions. Risk benefit ratio favors no change other than as noted in my dictated progress note. Diagnosis: Problems: (1) Disruptive behavior (2) Anxiety disorder (3) Major neurocognitive disorder, due to vascular disease, with behavioral disturbance, mild (4) Impulse control disorder (5) Dementia, vascular, with delusions (6) Dementia, vascular, with depression (7) Dementia in Alzheimer's disease with delusions (8) Dementia in Alzheimer's disease with depression ELMA DOLAN MD Apr 06, 2019 21:58
--- NOTE | 2019-04-07 04:41 | PN ---
DATE: 04/05/2019 PSYCHIATRIC PROGRESS NOTE This late entry of 04/05 covers elements not covered in my initial note. SUBJECTIVE: I met with the patient the evening of 04/05. Per AMOL Richard, the patient slept 5 hours the previous night. She was found in her bed the previous night trying to masturbate. She was quite elated when the family visited; grandiose and psychotic, confused. UA is less than 10,000 colonies, unremarkable. REVIEW OF SYSTEMS: No CV, , pulmonary, eye, ENT system symptoms on review. Reliability poor. MENTAL STATUS EXAMINATION: Oriented to herself. Insight, judgment, recent and remote memory, attention, concentration, fund of knowledge poor; consistent with her diagnoses. IMPRESSION: Major neurocognitive disorder, Alzheimer, vascular with delusion, depression, behavioral disturbance; anxiety disorder, unspecified; impulse control disorder, unspecified; psychotic disorder, unspecified. PLAN: Continue psychotropics from initial note. Stop the scheduled Zyprexa 5 mg at bedtime as she is on Seroquel 25 mg t.i.d. Maintain Celexa, Aricept for now together with Zyprexa p.r.n. Neuropsychological testing will be requested with Dr. Yeung. ELMA DOLAN MD DR: YADIRA/nito JOB#: [id number] / [id number]
[2019-04-07 05:55] VITALS: BP 109/58
[2019-04-07] MEDS: LEVOTHYROXINE 75 MCG TABLET PO SCH (06:19)
[2019-04-07] MEDS: LACTOBACILLUS RHAMNOSUS GG 1 CAPSULE. PO SCH ×2 (08:06→20:01)
[2019-04-07] MEDS: LISINOPRIL 20 MG TABLET PO SCH (08:06)
[2019-04-07] MEDS: NAPROXEN 250 MG TABLET PO SCH ×3 (08:06→20:01)
[2019-04-07] MEDS: CITALOPRAM 10 MG TABLET. PO SCH (08:07)
[2019-04-07] MEDS: QUEtiapine 25 MG TABLET. PO SCH ×3 (08:07→20:01)
[2019-04-07] MEDS: ASPIRIN 81 MG TAB.CHEW PO SCH (08:07)
[2019-04-07 15:56] VITALS: BP 129/77
[2019-04-07] MEDS: DONEPEZIL HCL 5 MG TABLET. PO SCH (20:02)
--- NOTE | 2019-04-07 21:28 | PDOC ---
Exam Note: Marbin Note: Please also refer to the separate dictated note~for this date of service dictated separately.~Patient seen individually. Discussed the patient with Nursing staff reviewed the chart.~Reviewed interim history and current functioning. Reviewed vital signs,~Labs/ Radiology~and current medications noted below. Continue current treatment with the changes noted in the dictated addendum note Assessment: Vital Signs/I&O: Vital Signs Date Time Temp Pulse Resp B/P (MAP) Pulse Ox O2 Delivery O2 Flow Rate FiO2 04/07/19 15:56 97.4 88 18 129/77 (94) 98 Room Air I & O 04/06/19 04/06/19 04/07/19 15:00 23:00 07:00 Intake Total 480 ml 360 ml Balance 480 ml 360 ml Current Medications: I have reviewed the current psychotropics carefully including drug interactions. Risk benefit ratio favors no change other than as noted in my dictated progress note. Diagnosis: Problems: (1) Disruptive behavior (2) Anxiety disorder (3) Major neurocognitive disorder, due to vascular disease, with behavioral disturbance, mild (4) Impulse control disorder (5) Dementia, vascular, with delusions (6) Dementia, vascular, with depression (7) Dementia in Alzheimer's disease with delusions (8) Dementia in Alzheimer's disease with depression ELMA DOLAN MD Apr 07, 2019 21:28
[2019-04-08] MEDS: LEVOTHYROXINE 75 MCG TABLET PO SCH (06:00)
[2019-04-08 06:30] VITALS: BP 133/59
[2019-04-08] MEDS: CITALOPRAM 10 MG TABLET. PO SCH (08:13)
[2019-04-08] MEDS: LACTOBACILLUS RHAMNOSUS GG 1 CAPSULE. PO SCH ×2 (08:13→20:24)
[2019-04-08] MEDS: ASPIRIN 81 MG TAB.CHEW PO SCH (08:13)
[2019-04-08] MEDS: QUEtiapine 25 MG TABLET. PO SCH ×2 (08:13→13:16)
[2019-04-08] MEDS: LISINOPRIL 20 MG TABLET PO SCH (08:14)
[2019-04-08] MEDS: NAPROXEN 250 MG TABLET PO SCH ×3 (08:20→20:25)
--- NOTE | 2019-04-08 12:49 | PN ---
DATE: 04/06/2019 PSYCHIATRIC PROGRESS NOTE This late entry 04/06/2019 covers elements not covered in my initial note. SUBJECTIVE: I met with the patient in the evening of 04/06/2019. Per AMOL Vásquez, the patient slept 5-3/4 hours previous night. She remains disorganized, more so in the morning, was in the wheelchair, later in the day secondary to impaired ambulation. She is having a bone scan. Speech is word salad. REVIEW OF SYSTEMS: No CV, , pulmonary, eye, ENT system symptoms on review. Reliability poor. MENTAL STATUS EXAM: Oriented to herself. Insight, judgment, recent and remote memory, attention, concentration, fund of knowledge poor, consistent with her diagnoses. IMPRESSION: Major neurocognitive disorder; Alzheimer's, vascular with delusion; depression, behavioral disturbance; psychotic disorder, unspecified; impulse control disorder, unspecified; anxiety disorder, unspecified. PLAN: Continue Celexa 10 mg a day, Aricept 5 mg a day, Seroquel 25 mg 3 times a day. Rest unchanged for now. MAN German DOLAN MD DR: YADIRA/nito JOB#: [id number] / [id number]
[2019-04-08] MEDS: ACETAMINOPHEN 325 MG TABLET PO PRN (13:16)
[2019-04-08] MEDS: SUMAtriptan SUCCINATE 50 MG TABLET PO PRN (14:34)
[2019-04-08 15:39] VITALS: BP 132/79
--- NOTE | 2019-04-08 19:47 | PN ---
DATE: 04/07/2019 This late entry 04/07/2019 covers elements not covered in my initial note. SUBJECTIVE: I met with the patient evening of 04/07/2019. The patient was also staffed at a treatment team meeting with the entire team morning of 04/07/2019. Appetite is 50%, slept 5 hours previous night, sexually inappropriate in the shower yesterday per nursing report, restless, inattentive, distractible, believed she works on the unit, somewhat delusional. We will check a CT head if not done one recently and she is having psychological testing done by Dr. Yeung as well. Later, I was informed, CT head was done in March at [facility] and we will get those results. REVIEW OF SYSTEMS: No CV, , pulmonary, eye, ENT system symptoms on review. Reliability poor. MENTAL STATUS EXAM: Oriented to herself. Insight, judgment, recent and remote memory, attention, concentration, fund of knowledge poor, consistent with her diagnosis. Per nursing report in the evening, she is walking and talking better, less delusional. LABORATORY DATA: Reviewed. IMPRESSION: Major neurocognitive disorder, Alzheimer, vascular with delusion, depression, behavioral disturbance; anxiety disorder, unspecified; impulse control disorder, unspecified; psychotic disorder, unspecified. PLAN: Continue psychotropics from initial note including Celexa, Aricept along with Seroquel. Make further adjustments as clinically indicated. MAN German DOLAN MD DR: YADIRA/nito JOB#: [id number] / [id number]
[2019-04-08] MEDS: DONEPEZIL HCL 5 MG TABLET. PO SCH (20:25)
[2019-04-08] MEDS: risperiDONE 0.25 MG TABLET. PO SCH (20:25)
--- NOTE | 2019-04-08 21:30 | PDOC ---
Exam Note: Marbin Note: Please also refer to the separate dictated note~for this date of service dictated separately.~Patient seen individually. Discussed the patient with Nursing staff reviewed the chart.~Reviewed interim history and current functioning. Reviewed vital signs,~Labs/ Radiology~and current medications noted below. Continue current treatment with the changes noted in the dictated addendum note Assessment: Vital Signs/I&O: Vital Signs Date Time Temp Pulse Resp B/P (MAP) Pulse Ox O2 Delivery O2 Flow Rate FiO2 04/08/19 15:39 97.5 71 16 132/79 (96) 99 04/07/19 15:56 Room Air I & O 04/07/19 04/07/19 04/08/19 15:00 23:00 07:00 Intake Total 840 ml 240 ml 240 ml Balance 840 ml 240 ml 240 ml Current Medications: Meds: Current Medications Medications (Trade) Dose Ordered Sig/Michael Route PRN Reason Start Time Stop Time Status Last Admin Dose Admin Risperidone (RisperDAL) 0.25 mg BID PO 04/08/19 21:00 04/08/19 20:25 I have reviewed the current psychotropics carefully including drug interactions. Risk benefit ratio favors no change other than as noted in my dictated progress note. Diagnosis: Problems: (1) Disruptive behavior (2) Anxiety disorder (3) Major neurocognitive disorder, due to vascular disease, with behavioral disturbance, mild (4) Impulse control disorder (5) Dementia, vascular, with delusions (6) Dementia, vascular, with depression (7) Dementia in Alzheimer's disease with delusions (8) Dementia in Alzheimer's disease with depression ELMA DOLAN MD Apr 08, 2019 21:30
[2019-04-09] MEDS: LEVOTHYROXINE 75 MCG TABLET PO SCH (04:55)
[2019-04-09 05:21] VITALS: BP 152/76
[2019-04-09] MEDS: NAPROXEN 250 MG TABLET PO SCH ×3 (08:30→20:38)
[2019-04-09] MEDS: LISINOPRIL 20 MG TABLET PO SCH (08:31)
[2019-04-09] MEDS: CITALOPRAM 10 MG TABLET. PO SCH (08:31)
[2019-04-09] MEDS: risperiDONE 0.25 MG TABLET. PO SCH ×2 (08:31→20:38)
[2019-04-09] MEDS: ASPIRIN 81 MG TAB.CHEW PO SCH (08:31)
[2019-04-09] MEDS: LACTOBACILLUS RHAMNOSUS GG 1 CAPSULE. PO SCH ×2 (08:31→20:38)
[2019-04-09] MEDS: SUMAtriptan SUCCINATE 50 MG TABLET PO PRN (12:16)
[2019-04-09 15:20] VITALS: BP 157/68
[2019-04-09] MEDS: DONEPEZIL HCL 5 MG TABLET. PO SCH (20:38)
[2019-04-10] MEDS ORDERED: LOPERAMIDE 2 MG/15 ML ORAL SUSP. PO PRN (00:15)
--- NOTE | 2019-04-10 00:23 | PN ---
DATE: 04/09/2019 SUBJECTIVE: The patient was seen today, met with the staff, chart reviewed and also covering for Dr. Wright. The patient has been cooperative, compliant with the treatment and also recently was complaining of feeling drowsy. OBSERVATION: VITAL SIGNS: Temperature 97.9, blood pressure 152/76, pulse 86, respiration 18, O2 sat 97%. Slept about 9 hours last night. Appetite fair. MEDICATIONS: The patient's current medications include Risperdal 0.25 mg b.i.d., Aricept 5 mg at night, Celexa 10 mg daily, olanzapine 2.5 mg q. 2 hours p.r.n. The patient's lab reviewed. ASSESSMENT: Major neurocognitive disorder, most likely Alzheimer's versus vascular with delusions, depression and behavioral disturbances; anxiety disorder, unspecified. PLAN: Continue with the current treatment plan. LENGTH OF STAY: 5-7 days. GALINA LIM MD DR: NIAN/nito JOB#: [id number] / [id number]
[2019-04-10 05:13] VITALS: BP 100/58
[2019-04-10] MEDS: LEVOTHYROXINE 75 MCG TABLET PO SCH (05:53)
[2019-04-10] MEDS: CITALOPRAM 10 MG TABLET. PO SCH (08:14)
[2019-04-10] MEDS: LACTOBACILLUS RHAMNOSUS GG 1 CAPSULE. PO SCH ×2 (08:14→19:39)
[2019-04-10] MEDS: NAPROXEN 250 MG TABLET PO SCH ×3 (08:14→19:39)
[2019-04-10] MEDS: risperiDONE 0.25 MG TABLET. PO SCH ×2 (08:14→19:39)
[2019-04-10] MEDS: ASPIRIN 81 MG TAB.CHEW PO SCH (08:15)
[2019-04-10] MEDS: LISINOPRIL 20 MG TABLET PO SCH (08:17)
[2019-04-10] MEDS ORDERED: LOPERAMIDE 2 MG CAPSULE PO PRN (12:45)
[2019-04-10 15:23] VITALS: BP 135/73
--- NOTE | 2019-04-10 15:50 | PN ---
DATE: 04/10/2019 SUBJECTIVE: The patient was seen today, met with the staff, chart reviewed. Staff reports no major behavior problems except for confusion and compliant with medications. OBSERVATION: VITAL SIGNS: Temperature 97.8, blood pressure 100/78, pulse 83, respirations 18, O2 sat 95%. Slept about 3 hours last night. The patient's appetite is fair. MEDICATIONS: The patient's current medications include Risperdal 0.25 mg twice a day, Aricept 5 mg at night, Celexa 10 mg daily, olanzapine 2.5 mg q. 2 hours p.r.n. The patient denies of any side effects to the medications. The patient's lab reviewed. ASSESSMENT: 1. Major neurocognitive disorder, most likely Alzheimer versus vascular with delusions, depression and behavioral disturbances. 2. Anxiety disorder, unspecified. PLAN: To continue with the treatment. LENGTH OF STAY: 5-7 days. GALINA LIM MD DR: NAIN/nito JOB#: [id number] / [id number]
[2019-04-10] MEDS: DONEPEZIL HCL 5 MG TABLET. PO SCH (19:39)
[2019-04-11] MEDS: LEVOTHYROXINE 75 MCG TABLET PO SCH (05:38)
[2019-04-11 06:44] VITALS: BP 123/74
[2019-04-11] MEDS: ASPIRIN 81 MG TAB.CHEW PO SCH (08:41)
[2019-04-11] MEDS: NAPROXEN 250 MG TABLET PO SCH ×3 (08:41→21:12)
[2019-04-11] MEDS: LISINOPRIL 20 MG TABLET PO SCH (08:41)
[2019-04-11] MEDS: LACTOBACILLUS RHAMNOSUS GG 1 CAPSULE. PO SCH ×2 (08:41→21:12)
[2019-04-11] MEDS: risperiDONE 0.25 MG TABLET. PO SCH ×2 (08:42→21:12)
[2019-04-11] MEDS: CITALOPRAM 10 MG TABLET. PO SCH (08:42)
[2019-04-11 15:28] VITALS: BP 152/86
[2019-04-11] MEDS ORDERED: DIVALPROEX 125 MG CAP.SPRINK PO ONE (21:00)
[2019-04-11] MEDS: DONEPEZIL HCL 5 MG TABLET. PO SCH (21:12)
--- NOTE | 2019-04-11 21:26 | PDOC ---
Exam Note: Marbin Note: Please also refer to the separate dictated note~for this date of service dictated separately.~Patient seen individually. Discussed the patient with Nursing staff reviewed the chart.~Reviewed interim history and current functioning. Reviewed vital signs,~Labs/ Radiology~and current medications noted below. Continue current treatment with the changes noted in the dictated addendum note Assessment: Vital Signs/I&O: Vital Signs Date Time Temp Pulse Resp B/P (MAP) Pulse Ox O2 Delivery O2 Flow Rate FiO2 04/11/19 15:28 98.3 76 18 152/86 (108) 97 04/09/19 05:21 Room Air I & O 04/10/19 04/10/19 04/11/19 15:00 23:00 07:00 Intake Total 600 ml 480 ml Balance 600 ml 480 ml Current Medications: Meds: Current Medications Medications (Trade) Dose Ordered Sig/Michael Route PRN Reason Start Time Stop Time Status Last Admin Dose Admin Divalproex Sodium (Depakote Sprinkles) 125 mg 1X ONCE PO 04/11/19 21:00 04/11/19 21:01 DC 04/11/19 21:12 I have reviewed the current psychotropics carefully including drug interactions. Risk benefit ratio favors no change other than as noted in my dictated progress note. Diagnosis: Problems: (1) Disruptive behavior (2) Anxiety disorder (3) Major neurocognitive disorder, due to vascular disease, with behavioral disturbance, mild (4) Impulse control disorder (5) Dementia, vascular, with delusions (6) Dementia, vascular, with depression (7) Dementia in Alzheimer's disease with delusions (8) Dementia in Alzheimer's disease with depression ELMA DOLAN MD Apr 11, 2019 21:26
[2019-04-12 05:01] VITALS: BP 133/71
--- NOTE | 2019-04-12 05:12 | PN ---
DATE: 04/08/2019 PSYCHIATRIC PROGRESS NOTE This late entry 04/08/2019 covers elements not covered in my initial note. SUBJECTIVE: I met with the patient evening of 04/08/2019. The patient slept 6-1/2 hours previous night per AMOL Vásquez. She has been anxious, restless, confused, walking all day. She has had some swelling of her left arm and feet, which is better. She remains paranoid, believes everyone is against her. Her daughter visited her at lunch. She recognized one daughter as Aj and the other daughter, Nesha, she thought was her mother. She is intermittently agitated, received p.r.n. for pain. At one point was banging on the nursing staff glass window, paranoid. REVIEW OF SYSTEMS: No CV, , pulmonary, eye, ENT system symptoms on review. Reliability poor. MENTAL STATUS EXAM: Oriented to herself. Insight, judgment, recent and remote memory, attention, concentration, fund of knowledge poor, consistent with her diagnoses. IMPRESSION: Major neurocognitive disorder, Alzheimer, vascular with delusion, behavioral disturbance, rule out bipolar disorder, mixed with psychotic features. Rest unchanged from initial note. PLAN: Given the extent of the patient's paranoia, we will change the Seroquel 25 mg t.i.d. to Risperdal 0.25 mg twice a day. Maintain Celexa 10 mg a day, Aricept 5 mg a day, Zyprexa p.r.n. May need to increase the Aricept and add Exelon patch, but we will see how she does with the above changes before deciding on this. MAN German DOLAN MD DR: YADIRA/nito JOB#: [id number] / [id number]
[2019-04-12] MEDS: LEVOTHYROXINE 75 MCG TABLET PO SCH (06:11)
[2019-04-12] MEDS: NAPROXEN 250 MG TABLET PO SCH ×3 (08:40→20:07)
[2019-04-12] MEDS: LISINOPRIL 20 MG TABLET PO SCH (08:40)
[2019-04-12] MEDS: ASPIRIN 81 MG TAB.CHEW PO SCH (08:40)
[2019-04-12] MEDS: DIVALPROEX 125 MG CAP.SPRINK PO SCH ×2 (08:40→17:17)
[2019-04-12] MEDS: LACTOBACILLUS RHAMNOSUS GG 1 CAPSULE. PO SCH ×2 (08:40→20:07)
[2019-04-12] MEDS: risperiDONE 0.25 MG TABLET. PO SCH (08:40)
[2019-04-12] MEDS: CITALOPRAM 10 MG TABLET. PO SCH (08:40)
[2019-04-12] MEDS ORDERED: DIVALPROEX 125 MG CAP.SPRINK PO SCH (11:30)
[2019-04-12 15:42] VITALS: BP 155/83
[2019-04-12] MEDS: DONEPEZIL HCL 5 MG TABLET. PO SCH (20:07)
[2019-04-12] MEDS: risperiDONE 0.5 MG TABLET. PO SCH (20:20)
--- NOTE | 2019-04-12 22:03 | PDOC ---
Exam Note: Marbin Note: Please also refer to the separate dictated note~for this date of service dictated separately.~Patient seen individually. Discussed the patient with Nursing staff reviewed the chart.~Reviewed interim history and current functioning. Reviewed vital signs,~Labs/ Radiology~and current medications noted below. Continue current treatment with the changes noted in the dictated addendum note Assessment: Vital Signs/I&O: Vital Signs Date Time Temp Pulse Resp B/P (MAP) Pulse Ox O2 Delivery O2 Flow Rate FiO2 04/12/19 15:42 97.6 83 16 155/83 (107) 93 04/09/19 05:21 Room Air I & O 04/11/19 04/11/19 04/12/19 15:00 23:00 07:00 Intake Total 720 ml 660 ml Balance 720 ml 660 ml Current Medications: Meds: Current Medications Medications (Trade) Dose Ordered Sig/Michael Route PRN Reason Start Time Stop Time Status Last Admin Dose Admin Divalproex Sodium (Depakote Sprinkles) 125 mg BIDWMEALS PO 04/12/19 08:30 04/12/19 17:17 Risperidone (RisperDAL) 0.5 mg QHS PO 04/12/19 21:00 04/12/19 20:20 I have reviewed the current psychotropics carefully including drug interactions. Risk benefit ratio favors no change other than as noted in my dictated progress note. Diagnosis: Problems: (1) Disruptive behavior (2) Anxiety disorder (3) Major neurocognitive disorder, due to vascular disease, with behavioral disturbance, mild (4) Impulse control disorder (5) Dementia, vascular, with delusions (6) Dementia, vascular, with depression (7) Dementia in Alzheimer's disease with delusions (8) Dementia in Alzheimer's disease with depression ELMA DOLAN MD Apr 12, 2019 22:03
--- NOTE | 2019-04-13 01:10 | PN ---
DATE: 04/11/2019 PSYCHIATRIC PROGRESS NOTE This late entry 04/11/2019 covers elements not covered in my initial note. SUBJECTIVE: I met with the patient in the evening. The patient slept 7-1/2 hours previous night. Overall, patient has been cognitively appearing to be more intact. She held a reasonable conversation with me as I met with her evening of 04/11/2019. Despite this, she has some loose associations, but when questioned about who the president was, she said Fahad Guerrero and when I asked about the year, she said it was 19 and then quickly corrected herself to say 2020. Soon after this, she was talking about her father being a cook and then other conversations about her brother that were disconnected. REVIEW OF SYSTEMS: No CV, , pulmonary, eye system symptoms on review. She appears manic per nursing report skipping on the unit. MENTAL STATUS EXAM: Oriented to herself. Insight, judgment, recent memory is impaired. Language function intact. Attention span short. Mood and affect remains anxious, labile, somewhat grandiose at times. Reviewed information from Dr. Osegeura, who covered for me for the past 2 days. No active suicidal or homicidal ideation. LABORATORY DATA: Reviewed. IMPRESSION: Major neurocognitive disorder, Alzheimer, vascular with delusion, behavioral disturbance, probable bipolar disorder, mixed with psychotic features; anxiety disorder, unspecified. Rest unchanged. PLAN: Continue Celexa 10 mg a day, Aricept 5 mg a day, may need to increase this, Risperdal 0.25 mg b.i.d. Start Depakote Sprinkles 125 mg 9 a.m., 5:00 p.m. Check CBC, CMP, valproic acid level, ammonia level in 3 days. Rest unchanged for now. MAN German DOLAN MD DR: YADIRA/nito JOB#: [id number] / [id number]
[2019-04-13] MEDS: LEVOTHYROXINE 75 MCG TABLET PO SCH (06:05)
[2019-04-13 06:43] VITALS: BP 126/70
[2019-04-13] MEDS: CHOLECALCIFEROL (VITAMIN D3) 50,000 UNIT CAPSULE PO SCH (07:58)
[2019-04-13] MEDS: DIVALPROEX 125 MG CAP.SPRINK PO SCH ×2 (07:58→16:46)
[2019-04-13] MEDS: ASPIRIN 81 MG TAB.CHEW PO SCH (07:58)
[2019-04-13] MEDS: LISINOPRIL 20 MG TABLET PO SCH (07:59)
[2019-04-13] MEDS: NAPROXEN 250 MG TABLET PO SCH ×3 (07:59→20:26)
[2019-04-13] MEDS: CITALOPRAM 10 MG TABLET. PO SCH (07:59)
[2019-04-13] MEDS: LACTOBACILLUS RHAMNOSUS GG 1 CAPSULE. PO SCH ×2 (07:59→20:26)
[2019-04-13] MEDS: risperiDONE 0.25 MG TABLET. PO SCH (08:05)
[2019-04-13] MEDS: CYANOCOBALAMIN (VITAMIN B-12) 1,000 MCG/ML VIAL IM SCH (10:45)
[2019-04-13 15:36] VITALS: BP 139/83
[2019-04-13] MEDS: DONEPEZIL HCL 5 MG TABLET. PO SCH (20:26)
[2019-04-13] MEDS: risperiDONE 0.5 MG TABLET. PO SCH (20:26)
--- NOTE | 2019-04-13 21:08 | PN ---
DATE: 04/12/2019 PSYCHIATRIC PROGRESS NOTE This late entry 04/12/2019 covers elements not covered in my initial note. SUBJECTIVE: I met with the patient evening of 04/12/2019. Per AMOL Romo, the patient slept 5 hours previous night. She is irritable in the morning, then doing better, attended groups. She is still paranoid, but seems cognitively more coherent intact, less confused. She continues to have some mood vacillations, but the psychotic symptoms are better. REVIEW OF SYSTEMS: No CV, , pulmonary, eye system symptoms on review. MENTAL STATUS EXAM: Oriented to herself, at times situation. Speech is coherent, a little pressured. Abstraction fair, computation impaired, language function intact. Mood and affect showing less grandiosity and lability. LABORATORY DATA: Reviewed. 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 Rest unchanged. PLAN: Continue Depakote Sprinkles 125 mg 9 a.m., 5:00 p.m. Check CBC, CMP, valproic acid level, ammonia level in 2 days. Risperdal will be increased from 0.25 mg b.i.d. to 0.25 mg a.m. and 0.5 mg at bedtime. Continue Celexa 10 mg a day, Aricept 5 mg a day, Zyprexa p.r.n. MAN German DOLAN MD DR: YADIRA/nito JOB#: [id number] / [id number]
--- NOTE | 2019-04-13 21:38 | PDOC ---
Exam Note: Marbin Note: Please also refer to the separate dictated note~for this date of service dictated separately.~Patient seen individually. Discussed the patient with Nursing staff reviewed the chart.~Reviewed interim history and current functioning. Reviewed vital signs,~Labs/ Radiology~and current medications noted below. Continue current treatment with the changes noted in the dictated addendum note Assessment: Vital Signs/I&O: Vital Signs Date Time Temp Pulse Resp B/P (MAP) Pulse Ox O2 Delivery O2 Flow Rate FiO2 04/13/19 15:36 98.2 89 16 139/83 (101) 99 04/09/19 05:21 Room Air I & O 04/12/19 04/12/19 04/13/19 15:00 23:00 07:00 Intake Total 480 ml 480 ml 240 ml Balance 480 ml 480 ml 240 ml Current Medications: Meds: Current Medications Medications (Trade) Dose Ordered Sig/Michael Route PRN Reason Start Time Stop Time Status Last Admin Dose Admin Risperidone (RisperDAL) 0.25 mg DAILY PO 04/13/19 09:00 04/13/19 08:05 I have reviewed the current psychotropics carefully including drug interactions. Risk benefit ratio favors no change other than as noted in my dictated progress note. Diagnosis: Problems: (1) Anxiety disorder (2) Major neurocognitive disorder, due to vascular disease, with behavioral disturbance, mild (3) Impulse control disorder (4) Dementia, vascular, with delusions (5) Dementia, vascular, with depression (6) Dementia in Alzheimer's disease with delusions (7) Dementia in Alzheimer's disease with depression ELMA DOLAN MD Apr 13, 2019 21:38
[2019-04-14] MEDS: LEVOTHYROXINE 75 MCG TABLET PO SCH (05:21)
[2019-04-14 05:39] VITALS: BP 138/81
[2019-04-14 07:23] LABS: BASO # 0.1 x10^3/uL (0.0-0.2); BASO % 1 % (0-3); EOS # 0.2 x10^3/uL (0.0-0.7); EOS % 4 % (0-3); HEMATOCRIT 38.1 % (36.0-47.0); HEMOGLOBIN 12.5 g/dL (12.0-15.5); LYMPH # 1.6 x10^3/uL (1.0-4.8); LYMPH % 29 % (24-48); MEAN CORPUSCULAR HEMOGLOBIN 32 pg (25-35); MEAN CORPUSCULAR HGB CONC 33 g/dL (31-37); MEAN CORPUSCULAR VOLUME 97 fL (79-100); MONO # 0.4 x10^3/uL (0.0-1.1); MONO % 7 % (0-9); NEUT # 3.3 x10^3uL (1.8-7.7); NEUT % 59 % (31-73); PLATELET COUNT 364 x10^3/uL (140-400); RED BLOOD COUNT 3.92 x10^6/uL (3.50-5.40); RED CELL DISTRIBUTION WIDTH 12.8 % (11.5-14.5); WHITE BLOOD COUNT 5.6 x10^3/uL (4.0-11.0)
[2019-04-14 07:42] LABS: ALBUMIN 3.2 g/dL (3.4-5.0); ALBUMIN/GLOBULIN RATIO 0.8 (1.0-1.7); CALCIUM 8.9 mg/dL (8.5-10.1); GFR 53.2; POTASSIUM 4.8 mmol/L (3.5-5.1); TOTAL BILIRUBIN 0.3 mg/dL (0.2-1.0)
[2019-04-14 07:44] LABS: VAL ACID 16 mcg/mL (50-100)
[2019-04-14] MEDS: NAPROXEN 250 MG TABLET PO SCH ×3 (08:07→19:58)
[2019-04-14] MEDS: DIVALPROEX 125 MG CAP.SPRINK PO SCH ×2 (08:07→16:54)
[2019-04-14] MEDS: ASPIRIN 81 MG TAB.CHEW PO SCH (08:07)
[2019-04-14] MEDS: CITALOPRAM 10 MG TABLET. PO SCH (08:07)
[2019-04-14] MEDS: LISINOPRIL 20 MG TABLET PO SCH (08:07)
[2019-04-14] MEDS: LACTOBACILLUS RHAMNOSUS GG 1 CAPSULE. PO SCH ×2 (08:07→19:58)
[2019-04-14] MEDS: risperiDONE 0.25 MG TABLET. PO SCH (08:08)
[2019-04-14 16:05] VITALS: BP 154/73
[2019-04-14] MEDS ORDERED: FLUTICASONE 50MCG/NASAL SPRAY 16GM BOTTLE. NS PRN (18:15)
[2019-04-14] MEDS: DONEPEZIL HCL 5 MG TABLET. PO SCH (19:57)
[2019-04-14] MEDS: risperiDONE 0.5 MG TABLET. PO SCH (19:58)
--- NOTE | 2019-04-14 21:30 | PDOC ---
Exam Note: Marbin Note: Please also refer to the separate dictated note~for this date of service dictated separately.~Patient seen individually. Discussed the patient with Nursing staff reviewed the chart.~Reviewed interim history and current functioning. Reviewed vital signs,~Labs/ Radiology~and current medications noted below. Continue current treatment with the changes noted in the dictated addendum note Assessment: Vital Signs/I&O: Vital Signs Date Time Temp Pulse Resp B/P (MAP) Pulse Ox O2 Delivery O2 Flow Rate FiO2 04/14/19 16:05 98.0 90 20 154/73 (100) 100 04/14/19 05:39 Room Air I & O 04/13/19 04/13/19 04/14/19 15:00 23:00 07:00 Intake Total 960 ml 660 ml Balance 960 ml 660 ml Labs: Laboratory Tests Test 04/14/19 07:07 White Blood Count 5.6 x10^3/uL (4.0-11.0) Red Blood Count 3.92 x10^6/uL (3.50-5.40) Hemoglobin 12.5 g/dL (12.0-15.5) Hematocrit 38.1 % (36.0-47.0) Mean Corpuscular Volume 97 fL (79-100) Mean Corpuscular Hemoglobin 32 pg (25-35) Mean Corpuscular Hemoglobin Concent 33 g/dL (31-37) Red Cell Distribution Width 12.8 % (11.5-14.5) Platelet Count 364 x10^3/uL (140-400) Neutrophils (%) (Auto) 59 % (31-73) Lymphocytes (%) (Auto) 29 % (24-48) Monocytes (%) (Auto) 7 % (0-9) Eosinophils (%) (Auto) 4 % (0-3) H Basophils (%) (Auto) 1 % (0-3) Neutrophils # (Auto) 3.3 x10^3uL (1.8-7.7) Lymphocytes # (Auto) 1.6 x10^3/uL (1.0-4.8) Monocytes # (Auto) 0.4 x10^3/uL (0.0-1.1) Eosinophils # (Auto) 0.2 x10^3/uL (0.0-0.7) Basophils # (Auto) 0.1 x10^3/uL (0.0-0.2) Sodium Level 140 mmol/L (136-145) Potassium Level 4.8 mmol/L (3.5-5.1) Chloride Level 105 mmol/L (98-107) Carbon Dioxide Level 26 mmol/L (21-32) Anion Gap 9 (6-14) Blood Urea Nitrogen 21 mg/dL (7-20) H Creatinine 1.0 mg/dL (0.6-1.0) Estimated GFR (Cockcroft-Gault) 53.2 BUN/Creatinine Ratio 21 (6-20) H Glucose Level 113 mg/dL (70-99) H Calcium Level 8.9 mg/dL (8.5-10.1) Total Bilirubin 0.3 mg/dL (0.2-1.0) Aspartate Amino Transferase (AST) 25 U/L (15-37) Alanine Aminotransferase (ALT) 33 U/L (14-59) Alkaline Phosphatase 131 U/L (46-116) H Ammonia 12 mcmol/L (11-34) Total Protein 7.0 g/dL (6.4-8.2) Albumin 3.2 g/dL (3.4-5.0) L Albumin/Globulin Ratio 0.8 (1.0-1.7) L Valproic Acid Level 16 mcg/mL (50-100) L Valproic Acid Last Dose Date 04/13/19 Valproic Acid Last Dose Time 1700 Current Medications: Meds: Current Medications Medications (Trade) Dose Ordered Sig/Michael Route PRN Reason Start Time Stop Time Status Last Admin Dose Admin Divalproex Sodium (Depakote Sprinkles) 250 mg BIDWMEALS PO 04/14/19 17:00 04/14/19 16:54 I have reviewed the current psychotropics carefully including drug interactions. Risk benefit ratio favors no change other than as noted in my dictated progress note. Diagnosis: Problems: (1) Anxiety disorder (2) Major neurocognitive disorder, due to vascular disease, with behavioral disturbance, mild (3) Impulse control disorder (4) Dementia, vascular, with delusions (5) Dementia, vascular, with depression (6) Dementia in Alzheimer's disease with delusions (7) Dementia in Alzheimer's disease with depression ELMA DOLAN MD Apr 14, 2019 21:30
[2019-04-15] MEDS: LEVOTHYROXINE 75 MCG TABLET PO SCH (04:57)
[2019-04-15 05:24] VITALS: BP 144/79
[2019-04-15] MEDS: LISINOPRIL 20 MG TABLET PO SCH (08:00)
[2019-04-15] MEDS: CETIRIZINE HCL 10 MG TABLET PO SCH (08:00)
[2019-04-15] MEDS: CITALOPRAM 10 MG TABLET. PO SCH (08:00)
[2019-04-15] MEDS: ASPIRIN 81 MG TAB.CHEW PO SCH (08:00)
[2019-04-15] MEDS: risperiDONE 0.25 MG TABLET. PO SCH (08:01)
[2019-04-15] MEDS: LACTOBACILLUS RHAMNOSUS GG 1 CAPSULE. PO SCH ×2 (08:01→19:59)
[2019-04-15] MEDS: NAPROXEN 250 MG TABLET PO SCH ×3 (08:01→19:59)
[2019-04-15] MEDS: DIVALPROEX 125 MG CAP.SPRINK PO SCH ×2 (08:02→17:12)
--- NOTE | 2019-04-15 08:56 | PN ---
DATE: 04/13/2019 PSYCHIATRIC PROGRESS NOTE This late entry 04/13/2019 covers the elements not covered in my initial note. SUBJECTIVE: I met with the patient in the evening. Per AMOL Vásquez, the patient slept 6-3/4 hours previous night. Behaviorally, she has done better, appears more coherent and oriented at times. Compliant and less delusional though she still believes she is at work. At times, her speech is tangential in her thought processes. REVIEW OF SYSTEMS: No CV, , pulmonary, eye, ENT system symptoms on review. She ambulates well by herself. MENTAL STATUS EXAMINATION: The patient is oriented to herself and situation. Speech is less pressured. Abstraction fair, computation impaired, language function intact, attention span short. Mood and affect is improved. She does have short term memory deficits. LABORATORY DATA: Reviewed. IMPRESSION: Probable bipolar disorder, mixed with psychotic features, mild cognitive impairment versus major neurocognitive disorder with delusions. Rest unchanged. PLAN: Continue Risperdal 0.5 mg at bedtime. Check CBC, CMP, valproic acid level on 04/14/2019. Adjust Depakote to reach therapeutic level. Continue Celexa, Aricept along with Zyprexa p.r.n. and Risperdal. Additionally, is 0.25 mg a.m. and 0.5 mg at bedtime, Depakote 125 mg twice a day. Adjust post-labs on 04/14/2019. MAN German DOLAN MD DR: YADIRA/nito JOB#: [id number] / [id number]
--- NOTE | 2019-04-15 09:28 | PN ---
DATE: 04/14/2019 PSYCHIATRIC PROGRESS NOTE This late entry 04/14/2019 covers elements not covered in my initial note. SUBJECTIVE: I met with the patient evening of 04/14/2019 and staffed at a treatment team meeting with the entire team in the morning. Appetite is 50%. The patient slept 6 hours previous, calmer, cooperative, less confused, but some short-term memory deficits still persist. Her friend was visiting her in the evening and I met with the patient and her friend together. She is compliant with her medications. Valproic acid level is 16 on Depakote Sprinkles 125 mg twice a day. We will increase to 250 mg twice a day. Check CBC, CMP, valproic acid level, ammonia level in 3 days and adjust to reach therapeutic level. REVIEW OF SYSTEMS: No CV, , pulmonary, eye, ENT system symptoms on review. MENTAL STATUS EXAM: Oriented to herself and situation. Speech is coherent, less pressured. Abstraction fair, computation impaired, language function intact. Psychotic symptoms are much improved. No suicidal ideation. LABORATORY DATA: Reviewed. IMPRESSION: Unchanged from initial note, probable bipolar disorder, mixed with psychotic features, mild cognitive impairment, anxiety disorder, unspecified. Rest unchanged. PLAN: Continue psychotropics from initial note, in addition to changes noted above. ELMA DOLAN MD DR: YADIRA/nito JOB#: [id number] / [id number]
[2019-04-15 15:42] VITALS: BP 118/73
[2019-04-15] MEDS: DONEPEZIL HCL 5 MG TABLET. PO SCH (19:59)
[2019-04-15] MEDS: risperiDONE 0.5 MG TABLET. PO SCH (19:59)
--- NOTE | 2019-04-15 21:39 | PDOC ---
Exam Note: Marbin Note: Please also refer to the separate dictated note~for this date of service dictated separately.~Patient seen individually. Discussed the patient with Nursing staff reviewed the chart.~Reviewed interim history and current functioning. Reviewed vital signs,~Labs/ Radiology~and current medications noted below. Continue current treatment with the changes noted in the dictated addendum note Assessment: Vital Signs/I&O: Vital Signs Date Time Temp Pulse Resp B/P (MAP) Pulse Ox O2 Delivery O2 Flow Rate FiO2 04/15/19 15:42 98.0 88 20 118/73 (88) 97 04/14/19 05:39 Room Air I & O 04/14/19 04/14/19 04/15/19 14:59 22:59 06:59 Intake Total 600 ml 600 ml Balance 600 ml 600 ml Current Medications: Meds: Current Medications Medications (Trade) Dose Ordered Sig/Michael Route PRN Reason Start Time Stop Time Status Last Admin Dose Admin Cetirizine HCl (ZyrTEC) 10 mg DAILY PO 04/15/19 09:00 04/15/19 08:00 I have reviewed the current psychotropics carefully including drug interactions. Risk benefit ratio favors no change other than as noted in my dictated progress note. Diagnosis: Problems: (1) Disruptive behavior (2) Anxiety disorder (3) Major neurocognitive disorder, due to vascular disease, with behavioral disturbance, mild (4) Impulse control disorder (5) Dementia, vascular, with delusions (6) Dementia, vascular, with depression (7) Dementia in Alzheimer's disease with delusions (8) Dementia in Alzheimer's disease with depression ELMA DOLAN MD Apr 15, 2019 21:39
[2019-04-16 05:39] VITALS: BP 138/81
[2019-04-16] MEDS: LEVOTHYROXINE 75 MCG TABLET PO SCH (06:06)
[2019-04-16] MEDS: DIVALPROEX 125 MG CAP.SPRINK PO SCH ×2 (08:17→16:45)
[2019-04-16] MEDS: CETIRIZINE HCL 10 MG TABLET PO SCH (08:17)
[2019-04-16] MEDS: risperiDONE 0.25 MG TABLET. PO SCH (08:18)
[2019-04-16] MEDS: LISINOPRIL 20 MG TABLET PO SCH (08:18)
[2019-04-16] MEDS: CITALOPRAM 10 MG TABLET. PO SCH (08:18)
[2019-04-16] MEDS: LACTOBACILLUS RHAMNOSUS GG 1 CAPSULE. PO SCH ×2 (08:18→20:14)
[2019-04-16] MEDS: ASPIRIN 81 MG TAB.CHEW PO SCH (08:18)
[2019-04-16] MEDS: NAPROXEN 250 MG TABLET PO SCH ×3 (08:18→20:14)
[2019-04-16 15:48] VITALS: BP 127/79
[2019-04-16] MEDS: risperiDONE 0.5 MG TABLET. PO SCH (20:14)
[2019-04-16] MEDS: DONEPEZIL HCL 5 MG TABLET. PO SCH (21:00)
[2019-04-17] MEDS: LEVOTHYROXINE 75 MCG TABLET PO SCH (05:42)
[2019-04-17 06:08] VITALS: BP 130/74
[2019-04-17] MEDS: CITALOPRAM 10 MG TABLET. PO SCH (08:43)
[2019-04-17] MEDS: ASPIRIN 81 MG TAB.CHEW PO SCH (08:43)
[2019-04-17] MEDS: CETIRIZINE HCL 10 MG TABLET PO SCH (08:43)
[2019-04-17] MEDS: DIVALPROEX 125 MG CAP.SPRINK PO SCH ×2 (08:43→17:07)
[2019-04-17] MEDS: risperiDONE 0.25 MG TABLET. PO SCH (08:43)
[2019-04-17] MEDS: NAPROXEN 250 MG TABLET PO SCH ×3 (08:44→20:14)
[2019-04-17] MEDS: LACTOBACILLUS RHAMNOSUS GG 1 CAPSULE. PO SCH ×2 (08:44→20:14)
[2019-04-17] MEDS: LISINOPRIL 20 MG TABLET PO SCH (08:44)
[2019-04-17 16:09] VITALS: BP 138/83
[2019-04-17] MEDS: risperiDONE 0.5 MG TABLET. PO SCH (20:14)
[2019-04-17] MEDS: HYDROCORTISONE 1% TOPICAL OINTMENT 30GM TUBE. TP SCH (20:15)
[2019-04-17] MEDS: DONEPEZIL HCL 5 MG TABLET. PO SCH (20:15)
--- NOTE | 2019-04-17 21:49 | PDOC ---
Exam Note: Marbin Note: This is a late entry for DOS 04/16/2019. VS - Last 72 Hours, by Label Date Time Temp Pulse Resp B/P (MAP) Pulse Ox O2 Delivery O2 Flow Rate FiO2 04/17/19 16:09 97.8 69 20 138/83 (101) 96 04/17/19 08:44 76 130/74 04/17/19 06:08 97.5 76 20 130/74 (92) 97 Room Air 04/16/19 15:48 97.4 82 18 127/79 (95) 97 04/16/19 08:18 83 138/81 04/16/19 05:39 97.5 83 20 138/81 (100) 96 04/15/19 15:42 98.0 88 20 118/73 (88) 97 04/15/19 08:00 67 144/79 04/15/19 05:24 97.7 67 17 144/79 (100) 99 Please also refer to the separate dictated note~for this date of service dictated separately.~Patient seen individually. Discussed the patient with Nursing staff reviewed the chart.~Reviewed interim history and current functioning. Reviewed vital signs,~Labs/ Radiology~and current medications noted below. Continue current treatment with the changes noted in the dictated addendum note Assessment: Vital Signs/I&O: Vital Signs Date Time Temp Pulse Resp B/P (MAP) Pulse Ox O2 Delivery O2 Flow Rate FiO2 04/17/19 16:09 97.8 69 20 138/83 (101) 96 04/17/19 06:08 Room Air I & O 04/16/19 04/16/19 04/17/19 15:00 23:00 07:00 Intake Total 1080 ml 720 ml Balance 1080 ml 720 ml Current Medications: Meds: Current Medications Medications (Trade) Dose Ordered Sig/Michael Route PRN Reason Start Time Stop Time Status Last Admin Dose Admin Hydrocortisone (Cortaid) 1 michelle BID TP 04/17/19 21:00 04/17/19 20:15 I have reviewed the current psychotropics carefully including drug interactions. Risk benefit ratio favors no change other than as noted in my dictated progress note. Diagnosis: Problems: (1) Disruptive behavior (2) Anxiety disorder (3) Major neurocognitive disorder, due to vascular disease, with behavioral disturbance, mild (4) Impulse control disorder (5) Dementia, vascular, with delusions (6) Dementia, vascular, with depression (7) Dementia in Alzheimer's disease with delusions (8) Dementia in Alzheimer's disease with depression ELMA DOLAN MD Apr 17, 2019 21:49
--- NOTE | 2019-04-17 22:01 | PDOC ---
Exam Note: Marbin Note: Please also refer to the separate dictated note~for this date of service dictated separately.~Patient seen individually. Discussed the patient with Nursing staff reviewed the chart.~Reviewed interim history and current functioning. Reviewed vital signs,~Labs/ Radiology~and current medications noted below. Continue current treatment with the changes noted in the dictated addendum note Assessment: Vital Signs/I&O: Vital Signs Date Time Temp Pulse Resp B/P (MAP) Pulse Ox O2 Delivery O2 Flow Rate FiO2 04/17/19 16:09 97.8 69 20 138/83 (101) 96 04/17/19 06:08 Room Air I & O 04/16/19 04/16/19 04/17/19 15:00 23:00 07:00 Intake Total 1080 ml 720 ml Balance 1080 ml 720 ml Current Medications: Meds: Current Medications Medications (Trade) Dose Ordered Sig/Michael Route PRN Reason Start Time Stop Time Status Last Admin Dose Admin Hydrocortisone (Cortaid) 1 michelle BID TP 04/17/19 21:00 04/17/19 20:15 I have reviewed the current psychotropics carefully including drug interactions. Risk benefit ratio favors no change other than as noted in my dictated progress note. Diagnosis: Problems: (1) Disruptive behavior (2) Anxiety disorder (3) Major neurocognitive disorder, due to vascular disease, with behavioral disturbance, mild (4) Impulse control disorder (5) Dementia, vascular, with delusions (6) Dementia, vascular, with depression (7) Dementia in Alzheimer's disease with delusions (8) Dementia in Alzheimer's disease with depression ELMA DOLAN MD Apr 17, 2019 22:00
--- NOTE | 2019-04-17 23:29 | PN ---
DATE: 04/15/2019 This late entry, 04/15, covers elements not covered in my initial note. SUBJECTIVE: I met with the patient evening of 04/15. Per AMOL Vásquez, the patient slept 7-1/2 hours previous night. She is much more coherent and oriented, but at certain times, she makes bizarre statements. For example, she felt they were at a green party and she needed a red shirt for the green party. She does get her B12 IM weekly. REVIEW OF SYSTEMS: No CV, , pulmonary, eye, ENT system symptoms on review. MENTAL STATUS EXAM: Oriented to herself and situation. Speech has some latency, coherent. Abstraction fair, computation impaired, language function intact. Mood and affect is improved. LABORATORY DATA: Reviewed. IMPRESSION: Unchanged from initial note. PLAN: No change from initial note. MAN German DOLAN MD DR: YADIRA/nito JOB#: [id number] / [id number]
--- NOTE | 2019-04-18 00:01 | PN ---
DATE: 04/16/2019 PSYCHIATRIC PROGRESS NOTE This late entry 04/16/2019 covers elements not covered in my initial note. SUBJECTIVE: I met with the patient evening of 04/16/2019 in her room. The patient slept 8 hours previous night. Per nursing report, she has been angry at her daughter and then talking about not being invited for the green party. Gets a little confused at certain times, more coherent and oriented at other times. REVIEW OF SYSTEMS: No CV, , pulmonary, eye, ENT system symptoms on review. MENTAL STATUS EXAMINATION: The patient is oriented to herself and situation. Speech is coherent, has some latency. Abstraction fair, computation impaired, language function intact, attention span short. Mood and affect somewhat withdrawn at times. LABORATORY DATA: Reviewed. IMPRESSION: Unchanged from initial note. PLAN: No change from initial note. MAN German DOLAN MD DR: YADIRA/nito JOB#: [id number] / [id number]
[2019-04-18] MEDS: LEVOTHYROXINE 75 MCG TABLET PO SCH (05:43)
[2019-04-18 06:32] VITALS: BP 167/81
[2019-04-18 06:43] LABS: BASO % 1 % (0-3); EOS # 0.3 x10^3/uL (0.0-0.7); EOS % 5 % (0-3); HEMATOCRIT 38.4 % (36.0-47.0); HEMOGLOBIN 12.4 g/dL (12.0-15.5); LYMPH # 1.9 x10^3/uL (1.0-4.8); LYMPH % 34 % (24-48); MEAN CORPUSCULAR HEMOGLOBIN 32 pg (25-35); MEAN CORPUSCULAR HGB CONC 32 g/dL (31-37); MEAN CORPUSCULAR VOLUME 97 fL (79-100); MONO # 0.4 x10^3/uL (0.0-1.1); MONO % 6 % (0-9); NEUT # 3.1 x10^3uL (1.8-7.7); NEUT % 55 % (31-73); PLATELET COUNT 312 x10^3/uL (140-400); RED BLOOD COUNT 3.95 x10^6/uL (3.50-5.40); RED CELL DISTRIBUTION WIDTH 13.3 % (11.5-14.5); WHITE BLOOD COUNT 5.7 x10^3/uL (4.0-11.0)
[2019-04-18 07:00] LABS: ALBUMIN 3.3 g/dL (3.4-5.0); ALBUMIN/GLOBULIN RATIO 0.9 (1.0-1.7); ALK PHOS 118 U/L (46-116); ALT (SGPT) 22 U/L (14-59); ANION GAP 7 (6-14); AST (SGOT) 15 U/L (15-37); BLOOD UREA NITROGEN 22 mg/dL (7-20); BUN/CREATININE RATIO 20 (6-20); CALCIUM 8.8 mg/dL (8.5-10.1); CARBON DIOXIDE 30 mmol/L (21-32); CHLORIDE 107 mmol/L (98-107); CREATININE 1.1 mg/dL (0.6-1.0); GFR 47.7; GLUCOSE 114 mg/dL (70-99); POTASSIUM 4.6 mmol/L (3.5-5.1); SODIUM 144 mmol/L (136-145); TOTAL BILIRUBIN 0.2 mg/dL (0.2-1.0); TOTAL PROTEIN 6.8 g/dL (6.4-8.2)
[2019-04-18 07:03] LABS: VAL ACID 29 mcg/mL (50-100)
[2019-04-18] MEDS: DIVALPROEX 125 MG CAP.SPRINK PO SCH ×2 (08:42→17:17)
[2019-04-18] MEDS: ASPIRIN 81 MG TAB.CHEW PO SCH (08:43)
[2019-04-18] MEDS: NAPROXEN 250 MG TABLET PO SCH ×3 (08:43→20:23)
[2019-04-18] MEDS: risperiDONE 0.25 MG TABLET. PO SCH (08:43)
[2019-04-18] MEDS: LACTOBACILLUS RHAMNOSUS GG 1 CAPSULE. PO SCH ×2 (08:43→20:24)
[2019-04-18] MEDS: CETIRIZINE HCL 10 MG TABLET PO SCH (08:43)
[2019-04-18] MEDS: CITALOPRAM 10 MG TABLET. PO SCH (08:43)
[2019-04-18] MEDS: LISINOPRIL 20 MG TABLET PO SCH (08:44)
[2019-04-18] MEDS: HYDROCORTISONE 1% TOPICAL OINTMENT 30GM TUBE. TP SCH ×2 (08:44→20:24)
[2019-04-18 16:12] VITALS: BP 146/84
[2019-04-18] MEDS: risperiDONE 0.5 MG TABLET. PO SCH (20:24)
[2019-04-18] MEDS: DONEPEZIL HCL 5 MG TABLET. PO SCH (20:24)
--- NOTE | 2019-04-18 21:28 | PDOC ---
Exam Note: Marbin Note: Please also refer to the separate dictated note~for this date of service dictated separately.~Patient seen individually. Discussed the patient with Nursing staff reviewed the chart.~Reviewed interim history and current functioning. Reviewed vital signs,~Labs/ Radiology~and current medications noted below. Continue current treatment with the changes noted in the dictated addendum note Assessment: Vital Signs/I&O: Vital Signs Date Time Temp Pulse Resp B/P (MAP) Pulse Ox O2 Delivery O2 Flow Rate FiO2 04/18/19 16:12 97.4 74 16 146/84 (104) 90 04/17/19 06:08 Room Air I & O 04/17/19 04/17/19 04/18/19 15:00 23:00 07:00 Intake Total 960 ml 360 ml 240 ml Balance 960 ml 360 ml 240 ml Labs: Laboratory Tests Test 04/18/19 06:29 White Blood Count 5.7 x10^3/uL (4.0-11.0) Red Blood Count 3.95 x10^6/uL (3.50-5.40) Hemoglobin 12.4 g/dL (12.0-15.5) Hematocrit 38.4 % (36.0-47.0) Mean Corpuscular Volume 97 fL (79-100) Mean Corpuscular Hemoglobin 32 pg (25-35) Mean Corpuscular Hemoglobin Concent 32 g/dL (31-37) Red Cell Distribution Width 13.3 % (11.5-14.5) Platelet Count 312 x10^3/uL (140-400) Neutrophils (%) (Auto) 55 % (31-73) Lymphocytes (%) (Auto) 34 % (24-48) Monocytes (%) (Auto) 6 % (0-9) Eosinophils (%) (Auto) 5 % (0-3) H Basophils (%) (Auto) 1 % (0-3) Neutrophils # (Auto) 3.1 x10^3uL (1.8-7.7) Lymphocytes # (Auto) 1.9 x10^3/uL (1.0-4.8) Monocytes # (Auto) 0.4 x10^3/uL (0.0-1.1) Eosinophils # (Auto) 0.3 x10^3/uL (0.0-0.7) Basophils # (Auto) 0.0 x10^3/uL (0.0-0.2) Sodium Level 144 mmol/L (136-145) Potassium Level 4.6 mmol/L (3.5-5.1) Chloride Level 107 mmol/L (98-107) Carbon Dioxide Level 30 mmol/L (21-32) Anion Gap 7 (6-14) Blood Urea Nitrogen 22 mg/dL (7-20) H Creatinine 1.1 mg/dL (0.6-1.0) H Estimated GFR (Cockcroft-Gault) 47.7 BUN/Creatinine Ratio 20 (6-20) Glucose Level 114 mg/dL (70-99) H Calcium Level 8.8 mg/dL (8.5-10.1) Total Bilirubin 0.2 mg/dL (0.2-1.0) Aspartate Amino Transferase (AST) 15 U/L (15-37) Alanine Aminotransferase (ALT) 22 U/L (14-59) Alkaline Phosphatase 118 U/L (46-116) H Total Protein 6.8 g/dL (6.4-8.2) Albumin 3.3 g/dL (3.4-5.0) L Albumin/Globulin Ratio 0.9 (1.0-1.7) L Valproic Acid Level 29 mcg/mL (50-100) L Valproic Acid Last Dose Date 04/17/2019 Valproic Acid Last Dose Time 1700 Current Medications: Meds: Current Medications Medications (Trade) Dose Ordered Sig/Michael Route PRN Reason Start Time Stop Time Status Last Admin Dose Admin Divalproex Sodium (Depakote Sprinkles) 500 mg DAILYWSUP PO 04/18/19 17:00 04/18/19 17:17 I have reviewed the current psychotropics carefully including drug interactions. Risk benefit ratio favors no change other than as noted in my dictated progress note. Diagnosis: Problems: (1) Disruptive behavior (2) Anxiety disorder (3) Major neurocognitive disorder, due to vascular disease, with behavioral disturbance, mild (4) Impulse control disorder (5) Dementia, vascular, with delusions (6) Dementia, vascular, with depression (7) Dementia in Alzheimer's disease with delusions (8) Dementia in Alzheimer's disease with depression ELMA DOLAN MD Apr 18, 2019 21:28
--- NOTE | 2019-04-19 00:52 | PN ---
DATE: 04/17/2019 PSYCHIATRIC PROGRESS NOTE This late entry 04/17/2019 covers elements not covered in my initial note. SUBJECTIVE: I met with the patient evening of 04/17/2019. Per AMOL Fernandez, the patient slept 5-3/4 hours previous night. She has been pleasant, confused, but more oriented than a few days back. 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 We will check labs morning of 04/18/2019 with a CBC, CMP and valproic acid level. REVIEW OF SYSTEMS: No CV, , pulmonary, eye, ENT system symptoms on review. Reliability poor. MENTAL STATUS EXAM: Oriented to herself and situation. Speech has some latency, coherent. Abstraction fair, computation impaired, language function intact, attention span short. Mood and affect less labile. LABORATORY DATA: Reviewed. IMPRESSION: Unchanged from initial note. PLAN: No change from initial note. ELMA DOLAN MD DR: YADIRA/nito JOB#: [id number] / [id number]
[2019-04-19] MEDS: LEVOTHYROXINE 75 MCG TABLET PO SCH (05:48)
[2019-04-19 06:06] VITALS: BP 140/68
[2019-04-19] MEDS: DIVALPROEX 125 MG CAP.SPRINK PO SCH ×2 (07:56→16:49)
[2019-04-19] MEDS: NAPROXEN 250 MG TABLET PO SCH ×3 (07:57→20:51)
[2019-04-19] MEDS: LACTOBACILLUS RHAMNOSUS GG 1 CAPSULE. PO SCH ×2 (07:57→20:51)
[2019-04-19] MEDS: ASPIRIN 81 MG TAB.CHEW PO SCH (07:57)
[2019-04-19] MEDS: risperiDONE 0.25 MG TABLET. PO SCH (07:57)
[2019-04-19] MEDS: LISINOPRIL 20 MG TABLET PO SCH (07:58)
[2019-04-19] MEDS: CETIRIZINE HCL 10 MG TABLET PO SCH (07:58)
[2019-04-19] MEDS: CITALOPRAM 10 MG TABLET. PO SCH (07:58)
[2019-04-19] MEDS: HYDROCORTISONE 1% TOPICAL OINTMENT 30GM TUBE. TP SCH ×2 (07:59→20:52)
[2019-04-19 15:53] VITALS: BP 107/62
[2019-04-19] MEDS: DONEPEZIL HCL 5 MG TABLET. PO SCH (20:51)
[2019-04-19] MEDS: risperiDONE 0.5 MG TABLET. PO SCH (20:52)
--- NOTE | 2019-04-19 21:20 | PDOC ---
Exam Note: Marbin Note: Please also refer to the separate dictated note~for this date of service dictated separately.~Patient seen individually. Discussed the patient with Nursing staff reviewed the chart.~Reviewed interim history and current functioning. Reviewed vital signs,~Labs/ Radiology~and current medications noted below. Continue current treatment with the changes noted in the dictated addendum note Assessment: Vital Signs/I&O: Vital Signs Date Time Temp Pulse Resp B/P (MAP) Pulse Ox O2 Delivery O2 Flow Rate FiO2 04/19/19 15:53 97.6 89 16 107/62 (77) 98 04/17/19 06:08 Room Air I & O 04/18/19 04/18/19 04/19/19 15:00 23:00 07:00 Intake Total 960 ml 360 ml Balance 960 ml 360 ml Current Medications: Meds: Current Medications Medications (Trade) Dose Ordered Sig/Michael Route PRN Reason Start Time Stop Time Status Last Admin Dose Admin Divalproex Sodium (Depakote Sprinkles) 250 mg DAILY PO 04/19/19 09:00 04/19/19 07:56 I have reviewed the current psychotropics carefully including drug interactions. Risk benefit ratio favors no change other than as noted in my dictated progress note. Diagnosis: Problems: (1) Disruptive behavior (2) Anxiety disorder (3) Major neurocognitive disorder, due to vascular disease, with behavioral disturbance, mild (4) Impulse control disorder (5) Dementia, vascular, with delusions (6) Dementia, vascular, with depression (7) Dementia in Alzheimer's disease with delusions (8) Dementia in Alzheimer's disease with depression ELMA DOLAN MD Apr 19, 2019 21:20
--- NOTE | 2019-04-19 21:38 | PN ---
DATE: 04/18/2019 This late entry 04/18/2018 covers elements not covered in my initial note. SUBJECTIVE: I met with the patient evening of 04/18/2019. Per AMOL Romo, the patient slept for 5-1/2 hours previous night. She has been doing better, gets confused at certain times, believes she works here, later seems more oriented. She does redirect. Her sister did visit with and brought her some things and the patient was obsessed that those had been locked in her closet and she wanted it open. I addressed this with her. REVIEW OF SYSTEMS: No CV, , pulmonary, eye, ENT system symptoms on review. MENTAL STATUS EXAM: Oriented to herself and situation. Speech is coherent, less pressured. Abstraction fair, computation impaired, language function intact, attention span short. Mood and affect remain somewhat anxious, labile. She is still paranoid, but much less psychotic. LABORATORY DATA: Reviewed. IMPRESSION: Bipolar disorder, mixed with psychotic features, mild cognitive impairment. Rest unchanged anxiety disorder, unspecified; impulse control disorder, unspecified. PLAN: Valproic acid level is 29 on Depakote Sprinkles 250 mg twice a day. CBC, CMP unremarkable. BUN and creatinine slight elevation. We will increase the Depakote Sprinkles to 250 in the morning and 500 at night. Check CBC, CMP, valproic acid level in 3 days. Continue rest unchanged for now. We will adjust to reach therapeutic level of the Depakote and then decide further adjustments in psychotropics thereafter. ELMA DOLAN MD DR: YADIRA/nito JOB#: [id number] / [id number]
[2019-04-20 05:47] VITALS: BP 108/70
[2019-04-20] MEDS: LEVOTHYROXINE 75 MCG TABLET PO SCH (05:49)
[2019-04-20] MEDS: CETIRIZINE HCL 10 MG TABLET PO SCH (07:58)
[2019-04-20] MEDS: CHOLECALCIFEROL (VITAMIN D3) 50,000 UNIT CAPSULE PO SCH (07:58)
[2019-04-20] MEDS: CITALOPRAM 10 MG TABLET. PO SCH (07:58)
[2019-04-20] MEDS: NAPROXEN 250 MG TABLET PO SCH ×3 (07:58→21:17)
[2019-04-20] MEDS: risperiDONE 0.25 MG TABLET. PO SCH (07:58)
[2019-04-20] MEDS: DIVALPROEX 125 MG CAP.SPRINK PO SCH ×2 (07:58→16:41)
[2019-04-20] MEDS: LISINOPRIL 20 MG TABLET PO SCH (07:59)
[2019-04-20] MEDS: LACTOBACILLUS RHAMNOSUS GG 1 CAPSULE. PO SCH ×2 (07:59→21:17)
[2019-04-20] MEDS: ASPIRIN 81 MG TAB.CHEW PO SCH (07:59)
[2019-04-20] MEDS: HYDROCORTISONE 1% TOPICAL OINTMENT 30GM TUBE. TP SCH ×2 (07:59→21:00)
[2019-04-20] MEDS: CYANOCOBALAMIN (VITAMIN B-12) 1,000 MCG/ML VIAL IM SCH (10:15)
[2019-04-20] MEDS: KETOCONAZOLE 2% TOPICAL CREAM 30GM TUBE. TP PRN (14:02)
[2019-04-20 15:58] VITALS: BP 97/68
[2019-04-20] MEDS: DONEPEZIL HCL 5 MG TABLET. PO SCH (21:17)
[2019-04-20] MEDS: risperiDONE 0.5 MG TABLET. PO SCH (21:17)
--- NOTE | 2019-04-20 21:23 | PDOC ---
Exam Note: Marbin Note: Please also refer to the separate dictated note~for this date of service dictated separately.~Patient seen individually. Discussed the patient with Nursing staff reviewed the chart.~Reviewed interim history and current functioning. Reviewed vital signs,~Labs/ Radiology~and current medications noted below. Continue current treatment with the changes noted in the dictated addendum note Assessment: Vital Signs/I&O: Vital Signs Date Time Temp Pulse Resp B/P (MAP) Pulse Ox O2 Delivery O2 Flow Rate FiO2 04/20/19 15:58 98.5 81 16 97/68 (78) 94 04/17/19 06:08 Room Air I & O 04/19/19 04/19/19 04/20/19 15:00 23:00 07:00 Intake Total 840 ml 600 ml Balance 840 ml 600 ml Current Medications: I have reviewed the current psychotropics carefully including drug interactions. Risk benefit ratio favors no change other than as noted in my dictated progress note. Diagnosis: Problems: (1) Dementia (2) Disruptive behavior (3) Anxiety disorder (4) Major neurocognitive disorder, due to vascular disease, with behavioral disturbance, mild (5) Impulse control disorder (6) Dementia, vascular, with delusions (7) Dementia, vascular, with depression (8) Dementia in Alzheimer's disease with delusions (9) Dementia in Alzheimer's disease with depression ELMA DOLAN MD Apr 20, 2019 21:23
--- NOTE | 2019-04-20 22:44 | PN ---
DATE: 04/19/2019 PSYCHIATRIC PROGRESS NOTE This late entry of 04/19/2019 covers elements not covered in my initial note. SUBJECTIVE: I met with the patient in the evening. Per Fahad RN, the patient slept 7-3/4 hours previous night. She has been somewhat obsessed regarding her clothes previous night, confused with short-term memory deficits, more oriented at certain times during the day. She remembered the name of the nursing staff and that her family visited. At times, get confused on date and place. Despite this, this is much improved from when she was first admitted. Her sister visited her. At times, she was delusional, talking about gangs and going to do something to this place. REVIEW OF SYSTEMS: No CV, , pulmonary, eye, ENT system symptoms on review. MENTAL STATUS EXAM: Oriented to herself, situation at times not at others. Speech coherent, less pressured. Abstraction fair, computation impaired, language function intact. Mood and affect, lability is improved. Remains psychotic, but better than before. LABORATORY DATA: Reviewed. IMPRESSION: Bipolar disorder, mixed with psychotic features, mild cognitive impairment; anxiety disorder, unspecified. Rest unchanged. PLAN: No change from initial note, but we may have to increase her Risperdal, if psychotic symptoms persist. ELMA DOLAN MD DR: YADIRA/nito JOB#: [id number] / [id number]
[2019-04-21] MEDS: LEVOTHYROXINE 75 MCG TABLET PO SCH (05:26)
[2019-04-21 06:20] VITALS: BP 144/69
[2019-04-21 07:28] LABS: BASO % 1 % (0-3); EOS # 0.3 x10^3/uL (0.0-0.7); EOS % 6 % (0-3); HEMATOCRIT 37.6 % (36.0-47.0); HEMOGLOBIN 12.3 g/dL (12.0-15.5); LYMPH # 1.7 x10^3/uL (1.0-4.8); LYMPH % 30 % (24-48); MEAN CORPUSCULAR HEMOGLOBIN 32 pg (25-35); MEAN CORPUSCULAR HGB CONC 33 g/dL (31-37); MEAN CORPUSCULAR VOLUME 97 fL (79-100); MONO # 0.4 x10^3/uL (0.0-1.1); MONO % 7 % (0-9); NEUT # 3.3 x10^3uL (1.8-7.7); NEUT % 57 % (31-73); PLATELET COUNT 249 x10^3/uL (140-400); RED BLOOD COUNT 3.88 x10^6/uL (3.50-5.40); RED CELL DISTRIBUTION WIDTH 13.3 % (11.5-14.5); WHITE BLOOD COUNT 5.8 x10^3/uL (4.0-11.0)
[2019-04-21 07:40] LABS: ALBUMIN 3.3 g/dL (3.4-5.0); ALK PHOS 109 U/L (46-116); ALT (SGPT) 19 U/L (14-59); ANION GAP 6 (6-14); AST (SGOT) 14 U/L (15-37); BLOOD UREA NITROGEN 24 mg/dL (7-20); BUN/CREATININE RATIO 22 (6-20); CALCIUM 8.5 mg/dL (8.5-10.1); CARBON DIOXIDE 30 mmol/L (21-32); CHLORIDE 107 mmol/L (98-107); CREATININE 1.1 mg/dL (0.6-1.0); GFR 47.7; GLUCOSE 97 mg/dL (70-99); POTASSIUM 4.7 mmol/L (3.5-5.1); SODIUM 143 mmol/L (136-145); TOTAL BILIRUBIN 0.3 mg/dL (0.2-1.0); TOTAL PROTEIN 6.6 g/dL (6.4-8.2)
[2019-04-21 07:49] LABS: VAL ACID 40 mcg/mL (50-100)
[2019-04-21] MEDS: risperiDONE 0.25 MG TABLET. PO SCH (08:15)
[2019-04-21] MEDS: LACTOBACILLUS RHAMNOSUS GG 1 CAPSULE. PO SCH ×2 (08:15→20:19)
[2019-04-21] MEDS: CETIRIZINE HCL 10 MG TABLET PO SCH (08:15)
[2019-04-21] MEDS: ASPIRIN 81 MG TAB.CHEW PO SCH (08:16)
[2019-04-21] MEDS: CITALOPRAM 10 MG TABLET. PO SCH (08:16)
[2019-04-21] MEDS: LISINOPRIL 20 MG TABLET PO SCH (08:16)
[2019-04-21] MEDS: DIVALPROEX 125 MG CAP.SPRINK PO SCH ×2 (08:16→17:21)
[2019-04-21] MEDS: NAPROXEN 250 MG TABLET PO SCH ×2 (08:16→13:42)
[2019-04-21] MEDS: HYDROCORTISONE 1% TOPICAL OINTMENT 30GM TUBE. TP SCH ×2 (09:17→20:19)
[2019-04-21 16:19] VITALS: BP 132/72
[2019-04-21] MEDS: risperiDONE 0.5 MG TABLET. PO SCH (20:19)
[2019-04-21] MEDS: DONEPEZIL HCL 5 MG TABLET. PO SCH (20:19)
--- NOTE | 2019-04-21 21:31 | PDOC ---
Exam Note: Marbin Note: Please also refer to the separate dictated note~for this date of service dictated separately.~Patient seen individually. Discussed the patient with Nursing staff reviewed the chart.~Reviewed interim history and current functioning. Reviewed vital signs,~Labs/ Radiology~and current medications noted below. Continue current treatment with the changes noted in the dictated addendum note Assessment: Vital Signs/I&O: Vital Signs Date Time Temp Pulse Resp B/P (MAP) Pulse Ox O2 Delivery O2 Flow Rate FiO2 04/21/19 16:19 97.4 66 18 132/72 (92) 93 04/17/19 06:08 Room Air I & O 04/20/19 04/20/19 04/21/19 15:00 23:00 07:00 Intake Total 600 ml 480 ml Balance 600 ml 480 ml Labs: Laboratory Tests Test 04/21/19 07:10 White Blood Count 5.8 x10^3/uL (4.0-11.0) Red Blood Count 3.88 x10^6/uL (3.50-5.40) Hemoglobin 12.3 g/dL (12.0-15.5) Hematocrit 37.6 % (36.0-47.0) Mean Corpuscular Volume 97 fL (79-100) Mean Corpuscular Hemoglobin 32 pg (25-35) Mean Corpuscular Hemoglobin Concent 33 g/dL (31-37) Red Cell Distribution Width 13.3 % (11.5-14.5) Platelet Count 249 x10^3/uL (140-400) Neutrophils (%) (Auto) 57 % (31-73) Lymphocytes (%) (Auto) 30 % (24-48) Monocytes (%) (Auto) 7 % (0-9) Eosinophils (%) (Auto) 6 % (0-3) H Basophils (%) (Auto) 1 % (0-3) Neutrophils # (Auto) 3.3 x10^3uL (1.8-7.7) Lymphocytes # (Auto) 1.7 x10^3/uL (1.0-4.8) Monocytes # (Auto) 0.4 x10^3/uL (0.0-1.1) Eosinophils # (Auto) 0.3 x10^3/uL (0.0-0.7) Basophils # (Auto) 0.0 x10^3/uL (0.0-0.2) Sodium Level 143 mmol/L (136-145) Potassium Level 4.7 mmol/L (3.5-5.1) Chloride Level 107 mmol/L (98-107) Carbon Dioxide Level 30 mmol/L (21-32) Anion Gap 6 (6-14) Blood Urea Nitrogen 24 mg/dL (7-20) H Creatinine 1.1 mg/dL (0.6-1.0) H Estimated GFR (Cockcroft-Gault) 47.7 BUN/Creatinine Ratio 22 (6-20) H Glucose Level 97 mg/dL (70-99) Calcium Level 8.5 mg/dL (8.5-10.1) Total Bilirubin 0.3 mg/dL (0.2-1.0) Aspartate Amino Transferase (AST) 14 U/L (15-37) L Alanine Aminotransferase (ALT) 19 U/L (14-59) Alkaline Phosphatase 109 U/L (46-116) Total Protein 6.6 g/dL (6.4-8.2) Albumin 3.3 g/dL (3.4-5.0) L Albumin/Globulin Ratio 1.0 (1.0-1.7) Valproic Acid Level 40 mcg/mL (50-100) L Valproic Acid Last Dose Date 04/20/19 Valproic Acid Last Dose Time 1700 Current Medications: Meds: Current Medications Medications (Trade) Dose Ordered Sig/Michael Route PRN Reason Start Time Stop Time Status Last Admin Dose Admin Divalproex Sodium (Depakote Sprinkles) 500 mg 0900,1700 PO 04/21/19 17:00 04/21/19 17:21 I have reviewed the current psychotropics carefully including drug interactions. Risk benefit ratio favors no change other than as noted in my dictated progress note. Diagnosis: Problems: (1) Disruptive behavior (2) Anxiety disorder (3) Major neurocognitive disorder, due to vascular disease, with behavioral disturbance, mild (4) Impulse control disorder (5) Dementia, vascular, with delusions (6) Dementia, vascular, with depression (7) Dementia in Alzheimer's disease with delusions (8) Dementia in Alzheimer's disease with depression ELMA DLOAN MD Apr 21, 2019 21:31
[2019-04-22] MEDS: LEVOTHYROXINE 75 MCG TABLET PO SCH (05:21)
[2019-04-22 06:30] VITALS: BP 137/82
[2019-04-22] MEDS: risperiDONE 0.25 MG TABLET. PO SCH (08:37)
[2019-04-22] MEDS: DIVALPROEX 125 MG CAP.SPRINK PO SCH ×2 (08:37→17:00)
[2019-04-22] MEDS: CETIRIZINE HCL 10 MG TABLET PO SCH (08:38)
[2019-04-22] MEDS: HYDROCORTISONE 1% TOPICAL OINTMENT 30GM TUBE. TP SCH ×2 (08:38→20:23)
[2019-04-22] MEDS: ASPIRIN 81 MG TAB.CHEW PO SCH (08:38)
[2019-04-22] MEDS: CITALOPRAM 10 MG TABLET. PO SCH (08:38)
[2019-04-22] MEDS: LACTOBACILLUS RHAMNOSUS GG 1 CAPSULE. PO SCH ×2 (08:38→20:22)
[2019-04-22 16:21] VITALS: BP 132/76
[2019-04-22] MEDS: DONEPEZIL HCL 5 MG TABLET. PO SCH (20:22)
[2019-04-22] MEDS: risperiDONE 0.5 MG TABLET. PO SCH (20:22)
--- NOTE | 2019-04-22 20:32 | PN ---
DATE: 04/20/2019 PSYCHIATRIC PROGRESS NOTE This late entry 04/20/2019 covers the elements not covered in my initial note. SUBJECTIVE: I met with the patient in the evening of 04/20/2019. Per AMOL Vásquez, the patient slept 6-3/4 hours previous night. She has been cognitively more intact. We will be checking valproic acid level in the morning. At times, she seems quite coherent, other times, more confused. REVIEW OF SYSTEMS: No CV, , pulmonary, eye, ENT system symptoms on review. Reliability varies. MENTAL STATUS EXAM: Oriented to herself and situation. Speech coherent, rapid at times. Abstraction fair, computation impaired, language function intact, attention span short. Mood and affect remain somewhat anxious, labile. LABORATORY DATA: Reviewed. IMPRESSION: Unchanged from initial note. PLAN: No change from initial note. MAN German DOLAN MD DR: YADIRA/nito JOB#: [id number] / [id number]
--- NOTE | 2019-04-22 22:41 | PDOC ---
Exam Note: Marbin Note: Please also refer to the separate dictated note~for this date of service dictated separately.~Patient seen individually. Discussed the patient with Nursing staff reviewed the chart.~Reviewed interim history and current functioning. Reviewed vital signs,~Labs/ Radiology~and current medications noted below. Continue current treatment with the changes noted in the dictated addendum note Assessment: Vital Signs/I&O: Vital Signs Date Time Temp Pulse Resp B/P (MAP) Pulse Ox O2 Delivery O2 Flow Rate FiO2 04/22/19 16:21 97.8 73 18 132/76 (94) 98 Room Air I & O 04/21/19 04/21/19 04/22/19 15:00 23:00 07:00 Intake Total 840 ml 360 ml 240 ml Balance 840 ml 360 ml 240 ml Current Medications: I have reviewed the current psychotropics carefully including drug interactions. Risk benefit ratio favors no change other than as noted in my dictated progress note. Diagnosis: Problems: (1) Disruptive behavior (2) Anxiety disorder (3) Major neurocognitive disorder, due to vascular disease, with behavioral disturbance, mild (4) Impulse control disorder (5) Dementia, vascular, with delusions (6) Dementia, vascular, with depression (7) Dementia in Alzheimer's disease with delusions (8) Dementia in Alzheimer's disease with depression ELMA DOLAN MD Apr 22, 2019 22:41
--- NOTE | 2019-04-23 03:01 | PN ---
DATE: 04/21/2019 PSYCHIATRIC PROGRESS NOTE This late entry 04/21/2019 covers elements not covered in my initial note. SUBJECTIVE: I met with the patient evening of 04/21/2019 and staffed a treatment team meeting with the entire team in the morning. The patient's appetite 50%, sleeping 6 hours, calm, cooperative, compliant. We reviewed her history at length. Daughter shared with us that cognitively she has been more with it and cognitively intact than she appears on the surface. She has been mean to the daughter whenever she is by herself, unable to control this in front of others. She is being screened for snf at [facility] or [place] for next week. Valproic acid level is 40, subtherapeutic. REVIEW OF SYSTEMS: No CV, , pulmonary, eye system symptoms on review. MENTAL STATUS EXAM: Oriented to herself and situation. Speech coherent, less pressured. Abstraction fair, computation impaired, language function intact. Mood and affect, lability is improved. LABORATORY DATA: Reviewed. IMPRESSION: Unchanged from initial note. PLAN: Increase Depakote Sprinkles to 500 mg twice a day. Check CBC, CMP, valproic acid level in 3 days since the prior valproic acid level subtherapeutic at 40. Continue rest of the psychotropics unchanged. ELMA DOLAN MD DR: YADIRA/nito JOB#: [id number] / [id number]
[2019-04-23] MEDS: LEVOTHYROXINE 75 MCG TABLET PO SCH (05:22)
[2019-04-23 05:39] VITALS: BP 113/70
[2019-04-23] MEDS: KETOCONAZOLE 2% TOPICAL CREAM 30GM TUBE. TP PRN (05:51)
[2019-04-23] MEDS: CETIRIZINE HCL 10 MG TABLET PO SCH (08:00)
[2019-04-23] MEDS: CITALOPRAM 10 MG TABLET. PO SCH (08:21)
[2019-04-23] MEDS: ASPIRIN 81 MG TAB.CHEW PO SCH (08:21)
[2019-04-23] MEDS: LACTOBACILLUS RHAMNOSUS GG 1 CAPSULE. PO SCH ×2 (08:22→19:55)
[2019-04-23] MEDS: HYDROCORTISONE 1% TOPICAL OINTMENT 30GM TUBE. TP SCH ×2 (08:22→19:56)
[2019-04-23] MEDS: DIVALPROEX 125 MG CAP.SPRINK PO SCH ×2 (08:22→17:00)
[2019-04-23] MEDS: risperiDONE 0.25 MG TABLET. PO SCH (08:22)
[2019-04-23 15:48] VITALS: BP 131/76
[2019-04-23] MEDS: risperiDONE 0.5 MG TABLET. PO SCH (19:55)
[2019-04-23] MEDS: DONEPEZIL HCL 5 MG TABLET. PO SCH (19:57)
--- NOTE | 2019-04-23 21:24 | PDOC ---
Exam Note: Marbin Note: Please also refer to the separate dictated note~for this date of service dictated separately.~Patient seen individually. Discussed the patient with Nursing staff reviewed the chart.~Reviewed interim history and current functioning. Reviewed vital signs,~Labs/ Radiology~and current medications noted below. Continue current treatment with the changes noted in the dictated addendum note Assessment: Vital Signs/I&O: Vital Signs Date Time Temp Pulse Resp B/P (MAP) Pulse Ox O2 Delivery O2 Flow Rate FiO2 04/23/19 15:48 98.2 71 18 131/76 (94) 96 04/22/19 16:21 Room Air I & O 04/22/19 04/22/19 04/23/19 15:00 23:00 07:00 Intake Total 840 ml 120 ml 100 ml Balance 840 ml 120 ml 100 ml Current Medications: I have reviewed the current psychotropics carefully including drug interactions. Risk benefit ratio favors no change other than as noted in my dictated progress note. Diagnosis: Problems: (1) Dementia (2) Disruptive behavior (3) Anxiety disorder (4) Major neurocognitive disorder, due to vascular disease, with behavioral disturbance, mild (5) Impulse control disorder (6) Dementia, vascular, with delusions (7) Dementia, vascular, with depression (8) Dementia in Alzheimer's disease with delusions (9) Dementia in Alzheimer's disease with depression ELMA DOLAN MD Apr 23, 2019 21:24
[2019-04-24] MEDS: LEVOTHYROXINE 75 MCG TABLET PO SCH (05:07)
[2019-04-24 05:47] VITALS: BP 135/68
[2019-04-24 06:11] LABS: CLARITY,URINE CLOUDY; COLOR,URINE YELLOW
[2019-04-24 06:12] LABS: BACTERIA,URINE MANY /HPF (0-FEW); BILIRUBIN,URINE NEG (NEG); GLUCOSE,URINE NEG (NEG); NITRITE,URINE POS (NEG); RBC,URINE OCC /HPF (0-2); SQUAMOUS EPITHELIAL CELL,UR FEW /LPF; UROBILINOGEN,URINE 0.2 mg/dL (0.2 mg/dL); WBC,URINE 20-40 /HPF (0-4)
[2019-04-24] MEDS: HYDROCORTISONE 1% TOPICAL OINTMENT 30GM TUBE. TP SCH ×2 (08:15→20:14)
[2019-04-24] MEDS: CETIRIZINE HCL 10 MG TABLET PO SCH (08:15)
[2019-04-24] MEDS: DIVALPROEX 125 MG CAP.SPRINK PO SCH ×2 (08:15→17:00)
[2019-04-24] MEDS: CITALOPRAM 10 MG TABLET. PO SCH (08:15)
[2019-04-24] MEDS: ASPIRIN 81 MG TAB.CHEW PO SCH (08:15)
[2019-04-24] MEDS: risperiDONE 0.25 MG TABLET. PO SCH (08:15)
[2019-04-24] MEDS: LACTOBACILLUS RHAMNOSUS GG 1 CAPSULE. PO SCH ×2 (08:15→20:13)
[2019-04-24 15:29] VITALS: BP 123/69
[2019-04-24] MEDS: DONEPEZIL HCL 5 MG TABLET. PO SCH (20:13)
[2019-04-24] MEDS: risperiDONE 0.5 MG TABLET. PO SCH (20:13)
--- NOTE | 2019-04-24 21:20 | PDOC ---
Exam Note: Marbin Note: Please also refer to the separate dictated note~for this date of service dictated separately.~Patient seen individually. Discussed the patient with Nursing staff reviewed the chart.~Reviewed interim history and current functioning. Reviewed vital signs,~Labs/ Radiology~and current medications noted below. Continue current treatment with the changes noted in the dictated addendum note Assessment: Vital Signs/I&O: Vital Signs Date Time Temp Pulse Resp B/P (MAP) Pulse Ox O2 Delivery O2 Flow Rate FiO2 04/24/19 15:29 97.8 97 16 123/69 (87) 90 04/22/19 16:21 Room Air I & O 04/23/19 04/23/19 04/24/19 15:00 23:00 07:00 Intake Total 840 ml 480 ml Balance 840 ml 480 ml Labs: Laboratory Tests Test 04/24/19 05:30 Urine Collection Type Unknown Urine Color Yellow Urine Clarity Cloudy Urine pH 7.5 Urine Specific [place] 1.020 Urine Protein Neg (NEG-TRACE) Urine Glucose (UA) Neg mg/dL (NEG) Urine Ketones (Stick) Neg mg/dL (NEG) Urine Blood Neg (NEG) Urine Nitrite Pos (NEG) Urine Bilirubin Neg (NEG) Urine Urobilinogen Dipstick 0.2 mg/dL (0.2 mg/dL) Urine Leukocyte Esterase Small (NEG) Urine RBC Occ /HPF (0-2) Urine WBC 20-40 /HPF (0-4) Urine Squamous Epithelial Cells Few /LPF Urine Transitional Epithelial Cells Occ /LPF Urine Bacteria Many /HPF (0-FEW) Current Medications: I have reviewed the current psychotropics carefully including drug interactions. Risk benefit ratio favors no change other than as noted in my dictated progress note. Diagnosis: Problems: (1) Disruptive behavior (2) Anxiety disorder (3) Major neurocognitive disorder, due to vascular disease, with behavioral disturbance, mild (4) Impulse control disorder (5) Dementia, vascular, with delusions (6) Dementia, vascular, with depression (7) Dementia in Alzheimer's disease with delusions (8) Dementia in Alzheimer's disease with depression ELMA DOLAN MD Apr 24, 2019 21:20
--- NOTE | 2019-04-24 22:32 | PN ---
DATE: 04/23/2019 PSYCHIATRIC PROGRESS NOTE This late entry 04/23/2019 covers elements not covered in my initial note. SUBJECTIVE: I met with the patient evening of 04/23/2019. Per nursing report, the patient slept 7-3/4 hours previous night. She has been pleasant, cooperative, does get confused with short-term memory deficits. REVIEW OF SYSTEMS: No CV, , pulmonary, eye system symptoms on review. MENTAL STATUS EXAM: Oriented to herself and situation. Speech coherent, less pressured. Abstraction fair, computation impaired, language function intact, attention span short. Mood and affect is improved. LABORATORY DATA: Reviewed. IMPRESSION: Unchanged from initial note. IMPRESSION: Bipolar disorder, mixed with psychotic features; mild cognitive impairment; psychotic disorder, unspecified. PLAN: No change from initial note. MAN German DOLAN MD DR: YADIRA/nito JOB#: [id number] / [id number]
--- NOTE | 2019-04-24 22:43 | PN ---
DATE: 04/22/2019 PSYCHIATRIC PROGRESS NOTE This late entry 04/22/2019 covers elements not covered in my initial note. SUBJECTIVE: I met with the patient evening of 04/22/2019. Per AMOL Del Toro, the patient slept 7-1/2 hours previous night. She was irritable previous night, compliant with medications, gets upset at times, but later in the day was in good spirits per nursing report. REVIEW OF SYSTEMS: No CV, , pulmonary, eye, ENT system symptoms on review. At times, she seems much more cognitively intact. A little more confused and delusional at other times. MENTAL STATUS EXAM: Oriented to herself and situation. Speech is coherent, less pressured. Abstraction fair, computation impaired, language function intact. Short term memory is impaired. Mood and affect at times labile. LABORATORY DATA: Reviewed. IMPRESSION: Unchanged from initial note. PLAN: No change from initial note. ELMA DOLAN MD DR: YADIRA/nito JOB#: [id number] / [id number]
[2019-04-25] MEDS: LEVOTHYROXINE 75 MCG TABLET PO SCH (05:50)
[2019-04-25 06:04] VITALS: BP 136/75
[2019-04-25 07:04] LABS: BASO % 1 % (0-3); EOS # 0.2 x10^3/uL (0.0-0.7); EOS % 5 % (0-3); HEMATOCRIT 36.9 % (36.0-47.0); HEMOGLOBIN 12.1 g/dL (12.0-15.5); LYMPH # 1.9 x10^3/uL (1.0-4.8); LYMPH % 36 % (24-48); MEAN CORPUSCULAR HEMOGLOBIN 32 pg (25-35); MEAN CORPUSCULAR HGB CONC 33 g/dL (31-37); MEAN CORPUSCULAR VOLUME 97 fL (79-100); MONO # 0.4 x10^3/uL (0.0-1.1); MONO % 8 % (0-9); NEUT # 2.7 x10^3uL (1.8-7.7); NEUT % 51 % (31-73); PLATELET COUNT 191 x10^3/uL (140-400); RED BLOOD COUNT 3.79 x10^6/uL (3.50-5.40); RED CELL DISTRIBUTION WIDTH 13.3 % (11.5-14.5); WHITE BLOOD COUNT 5.4 x10^3/uL (4.0-11.0)
[2019-04-25 07:19] LABS: TOTAL PROTEIN 6.6 g/dL (6.4-8.2)
[2019-04-25 07:20] LABS: ALBUMIN/GLOBULIN RATIO 0.8 (1.0-1.7); ALK PHOS 102 U/L (46-116); ALT (SGPT) 17 U/L (14-59); ANION GAP 6 (6-14); AST (SGOT) 14 U/L (15-37); BLOOD UREA NITROGEN 24 mg/dL (7-20); BUN/CREATININE RATIO 22 (6-20); CALCIUM 8.6 mg/dL (8.5-10.1); CARBON DIOXIDE 30 mmol/L (21-32); CHLORIDE 107 mmol/L (98-107); CREATININE 1.1 mg/dL (0.6-1.0); GFR 47.7; GLUCOSE 105 mg/dL (70-99); POTASSIUM 4.6 mmol/L (3.5-5.1); SODIUM 143 mmol/L (136-145); TOTAL BILIRUBIN 0.1 mg/dL (0.2-1.0)
[2019-04-25 07:22] LABS: VAL ACID 52 mcg/mL (50-100)
[2019-04-25] MEDS: risperiDONE 0.25 MG TABLET. PO SCH (08:22)
[2019-04-25] MEDS: CETIRIZINE HCL 10 MG TABLET PO SCH (08:23)
[2019-04-25] MEDS: CITALOPRAM 10 MG TABLET. PO SCH (08:23)
[2019-04-25] MEDS: DIVALPROEX 125 MG CAP.SPRINK PO SCH ×2 (08:23→16:55)
[2019-04-25] MEDS: LACTOBACILLUS RHAMNOSUS GG 1 CAPSULE. PO SCH ×2 (08:23→20:47)
[2019-04-25] MEDS: HYDROCORTISONE 1% TOPICAL OINTMENT 30GM TUBE. TP SCH ×2 (08:23→21:00)
[2019-04-25] MEDS: ASPIRIN 81 MG TAB.CHEW PO SCH (08:23)
[2019-04-25 16:17] VITALS: BP 139/72
[2019-04-25] MEDS: risperiDONE 0.5 MG TABLET. PO SCH (20:47)
[2019-04-25] MEDS: DONEPEZIL HCL 5 MG TABLET. PO SCH (20:47)
--- NOTE | 2019-04-25 21:42 | PDOC ---
Exam Note: Marbin Note: Please also refer to the separate dictated note~for this date of service dictated separately.~Patient seen individually. Discussed the patient with Nursing staff reviewed the chart.~Reviewed interim history and current functioning. Reviewed vital signs,~Labs/ Radiology~and current medications noted below. Continue current treatment with the changes noted in the dictated addendum note Assessment: Vital Signs/I&O: Vital Signs Date Time Temp Pulse Resp B/P (MAP) Pulse Ox O2 Delivery O2 Flow Rate FiO2 04/25/19 16:17 98.1 61 18 139/72 (94) 96 04/22/19 16:21 Room Air I & O 04/24/19 04/24/19 04/25/19 15:00 23:00 07:00 Intake Total 840 ml 360 ml 240 ml Balance 840 ml 360 ml 240 ml Labs: Laboratory Tests Test 04/25/19 06:30 White Blood Count 5.4 x10^3/uL (4.0-11.0) Red Blood Count 3.79 x10^6/uL (3.50-5.40) Hemoglobin 12.1 g/dL (12.0-15.5) Hematocrit 36.9 % (36.0-47.0) Mean Corpuscular Volume 97 fL (79-100) Mean Corpuscular Hemoglobin 32 pg (25-35) Mean Corpuscular Hemoglobin Concent 33 g/dL (31-37) Red Cell Distribution Width 13.3 % (11.5-14.5) Platelet Count 191 x10^3/uL (140-400) Neutrophils (%) (Auto) 51 % (31-73) Lymphocytes (%) (Auto) 36 % (24-48) Monocytes (%) (Auto) 8 % (0-9) Eosinophils (%) (Auto) 5 % (0-3) H Basophils (%) (Auto) 1 % (0-3) Neutrophils # (Auto) 2.7 x10^3uL (1.8-7.7) Lymphocytes # (Auto) 1.9 x10^3/uL (1.0-4.8) Monocytes # (Auto) 0.4 x10^3/uL (0.0-1.1) Eosinophils # (Auto) 0.2 x10^3/uL (0.0-0.7) Basophils # (Auto) 0.0 x10^3/uL (0.0-0.2) Sodium Level 143 mmol/L (136-145) Potassium Level 4.6 mmol/L (3.5-5.1) Chloride Level 107 mmol/L (98-107) Carbon Dioxide Level 30 mmol/L (21-32) Anion Gap 6 (6-14) Blood Urea Nitrogen 24 mg/dL (7-20) H Creatinine 1.1 mg/dL (0.6-1.0) H Estimated GFR (Cockcroft-Gault) 47.7 BUN/Creatinine Ratio 22 (6-20) H Glucose Level 105 mg/dL (70-99) H Calcium Level 8.6 mg/dL (8.5-10.1) Total Bilirubin 0.1 mg/dL (0.2-1.0) L Aspartate Amino Transferase (AST) 14 U/L (15-37) L Alanine Aminotransferase (ALT) 17 U/L (14-59) Alkaline Phosphatase 102 U/L (46-116) Total Protein 6.6 g/dL (6.4-8.2) Albumin 3.0 g/dL (3.4-5.0) L Albumin/Globulin Ratio 0.8 (1.0-1.7) L Valproic Acid Level 52 mcg/mL (50-100) Valproic Acid Last Dose Date 04/24/19 Valproic Acid Last Dose Time 1700 Current Medications: I have reviewed the current psychotropics carefully including drug interactions. Risk benefit ratio favors no change other than as noted in my dictated progress note. Diagnosis: Problems: (1) Disruptive behavior (2) Anxiety disorder (3) Major neurocognitive disorder, due to vascular disease, with behavioral disturbance, mild (4) Impulse control disorder (5) Dementia, vascular, with delusions (6) Dementia, vascular, with depression (7) Dementia in Alzheimer's disease with delusions (8) Dementia in Alzheimer's disease with depression ELMA DOLAN MD Apr 25, 2019 21:42
--- NOTE | 2019-04-26 00:32 | PN ---
DATE: 04/24/2019 PSYCHIATRIC PROGRESS NOTE. This late entry of 04/24/2019 covers the elements not covered in my initial note. SUBJECTIVE: I met with the patient in the evening of 04/24/2019. Overall, the patient is doing well. She was flirting with one of the male certified nursing assistant instructor's in the morning. At times, she seems confused, said she had gone on a [employer] party bus. Urine has reflux to culture and we will await this. REVIEW OF SYSTEMS: No CV, , pulmonary, eye system symptoms on review. MENTAL STATUS EXAM: Oriented to herself and situation. Speech coherent, has some latency. Abstraction fair, computation impaired, language function intact. Mood and affect less labile. LABORATORY DATA: Reviewed. IMPRESSION: Unchanged from initial note. PLAN: No change from initial note. MAN German DOLAN MD DR: YADIRA/nito JOB#: [id number] / [id number]
[2019-04-26] MEDS: LEVOTHYROXINE 75 MCG TABLET PO SCH (05:35)
[2019-04-26 06:26] VITALS: BP 138/82
[2019-04-26] MEDS: risperiDONE 0.25 MG TABLET. PO SCH (08:21)
[2019-04-26] MEDS: CITALOPRAM 10 MG TABLET. PO SCH (08:21)
[2019-04-26] MEDS: CETIRIZINE HCL 10 MG TABLET PO SCH (08:21)
[2019-04-26] MEDS: LACTOBACILLUS RHAMNOSUS GG 1 CAPSULE. PO SCH ×2 (08:21→19:56)
[2019-04-26] MEDS: ASPIRIN 81 MG TAB.CHEW PO SCH (08:21)
[2019-04-26] MEDS: DIVALPROEX 125 MG CAP.SPRINK PO SCH ×2 (08:22→16:28)
[2019-04-26] MEDS: HYDROCORTISONE 1% TOPICAL OINTMENT 30GM TUBE. TP SCH ×2 (08:22→19:56)
[2019-04-26] MEDS: SUMAtriptan SUCCINATE 50 MG TABLET PO PRN (10:34)
[2019-04-26 15:46] VITALS: BP 162/84
[2019-04-26] MEDS: DONEPEZIL HCL 5 MG TABLET. PO SCH (19:56)
[2019-04-26] MEDS: risperiDONE 0.5 MG TABLET. PO SCH (19:56)
--- NOTE | 2019-04-26 21:23 | PDOC ---
Exam Note: Marbin Note: Please also refer to the separate dictated note~for this date of service dictated separately.~Patient seen individually. Discussed the patient with Nursing staff reviewed the chart.~Reviewed interim history and current functioning. Reviewed vital signs,~Labs/ Radiology~and current medications noted below. Continue current treatment with the changes noted in the dictated addendum note Assessment: Vital Signs/I&O: Vital Signs Date Time Temp Pulse Resp B/P (MAP) Pulse Ox O2 Delivery O2 Flow Rate FiO2 04/26/19 15:46 97.6 85 18 162/84 (110) 97 04/22/19 16:21 Room Air I & O 04/25/19 04/25/19 04/26/19 15:00 23:00 07:00 Intake Total 840 ml 480 ml 240 ml Balance 840 ml 480 ml 240 ml Current Medications: I have reviewed the current psychotropics carefully including drug interactions. Risk benefit ratio favors no change other than as noted in my dictated progress note. Diagnosis: Problems: (1) Disruptive behavior (2) Anxiety disorder (3) Major neurocognitive disorder, due to vascular disease, with behavioral disturbance, mild (4) Impulse control disorder (5) Dementia, vascular, with delusions (6) Dementia, vascular, with depression (7) Dementia in Alzheimer's disease with delusions (8) Dementia in Alzheimer's disease with depression ELMA DOLAN MD Apr 26, 2019 21:23
--- NOTE | 2019-04-27 01:31 | PN ---
DATE: 04/25/2019 PSYCHIATRIC PROGRESS NOTE This late entry of 04/25 covers elements not covered in my initial note. SUBJECTIVE: I met with the patient the evening of 04/25. Per AMOL Camacho, the patient slept 7-1/4 hours the previous night. She has had a good day and then the daughter visited, then the patient was upset, paranoid after that. Agitated in the evening, but redirectable. REVIEW OF SYSTEMS: No CV, , pulmonary, eye, ENT system symptoms on review. MENTAL STATUS EXAMINATION: Oriented to herself and situation. Speech is coherent, abstraction fair, computation impaired, language function intact, attention span short. Mood and affect remain somewhat anxious, labile at times. LABORATORY DATA: Reviewed. IMPRESSION: Unchanged from initial note. PLAN: No change from initial note. MAN German DOLAN MD DR: YADIRA/nito JOB#: [id number] / [id number]
[2019-04-27] MEDS: LEVOTHYROXINE 75 MCG TABLET PO SCH (05:36)
[2019-04-27 06:06] VITALS: BP 113/65
[2019-04-27] MEDS: CITALOPRAM 10 MG TABLET. PO SCH (08:28)
[2019-04-27] MEDS: HYDROCORTISONE 1% TOPICAL OINTMENT 30GM TUBE. TP SCH ×2 (08:28→20:00)
[2019-04-27] MEDS: CHOLECALCIFEROL (VITAMIN D3) 50,000 UNIT CAPSULE PO SCH (08:28)
[2019-04-27] MEDS: DIVALPROEX 125 MG CAP.SPRINK PO SCH ×2 (08:28→16:44)
[2019-04-27] MEDS: ASPIRIN 81 MG TAB.CHEW PO SCH (08:28)
[2019-04-27] MEDS: risperiDONE 0.25 MG TABLET. PO SCH (08:28)
[2019-04-27] MEDS: LACTOBACILLUS RHAMNOSUS GG 1 CAPSULE. PO SCH ×2 (08:28→19:59)
[2019-04-27] MEDS: CETIRIZINE HCL 10 MG TABLET PO SCH (08:28)
[2019-04-27] MEDS: CYANOCOBALAMIN (VITAMIN B-12) 1,000 MCG/ML VIAL IM SCH (08:29)
[2019-04-27 15:56] VITALS: BP 115/73
[2019-04-27] MEDS: AMOXICILLIN 250 MG CAPSULE PO SCH (19:59)
[2019-04-27] MEDS: risperiDONE 0.5 MG TABLET. PO SCH (19:59)
[2019-04-27] MEDS: DONEPEZIL HCL 5 MG TABLET. PO SCH (19:59)
--- NOTE | 2019-04-27 21:51 | PDOC ---
Exam Note: Marbin Note: Please also refer to the separate dictated note~for this date of service dictated separately.~Patient seen individually. Discussed the patient with Nursing staff reviewed the chart.~Reviewed interim history and current functioning. Reviewed vital signs,~Labs/ Radiology~and current medications noted below. Continue current treatment with the changes noted in the dictated addendum note Assessment: Vital Signs/I&O: Vital Signs Date Time Temp Pulse Resp B/P (MAP) Pulse Ox O2 Delivery O2 Flow Rate FiO2 04/27/19 15:56 97.3 90 18 115/73 (87) 98 04/27/19 06:06 Room Air I & O 04/26/19 04/26/19 04/27/19 15:00 23:00 07:00 Intake Total 840 ml 240 ml 240 ml Balance 840 ml 240 ml 240 ml Current Medications: Meds: Current Medications Medications (Trade) Dose Ordered Sig/Michael Route PRN Reason Start Time Stop Time Status Last Admin Dose Admin Amoxicillin (Amoxil) 500 mg [id number] PO 04/27/19 21:00 05/04/19 10:00 04/27/19 19:59 I have reviewed the current psychotropics carefully including drug interactions. Risk benefit ratio favors no change other than as noted in my dictated progress note. Diagnosis: Problems: (1) Disruptive behavior (2) Anxiety disorder (3) Major neurocognitive disorder, due to vascular disease, with behavioral disturbance, mild (4) Impulse control disorder (5) Dementia, vascular, with delusions (6) Dementia, vascular, with depression (7) Dementia in Alzheimer's disease with delusions (8) Dementia in Alzheimer's disease with depression ELMA DOLAN MD Apr 27, 2019 21:51
--- NOTE | 2019-04-27 23:26 | PN ---
DATE: 04/26/2019 PSYCHIATRIC PROGRESS NOTE This late entry 04/26/2019 covers elements not covered in my initial note. SUBJECTIVE: I met with the patient evening of 04/26/2019. Per AMOL Vásquez, the patient slept 6-1/2 hours previous night. She has been calmer, cooperative, compliant, had a better day. Daughter visited and then she was a little more agitated, but redirectable. REVIEW OF SYSTEMS: No CV, , pulmonary, eye system symptoms on review. We will repeat a UA, make sure UTI has not recurred due to her intermittent agitation. MENTAL STATUS EXAM: Oriented to herself and situation. Speech is coherent, abstraction fair, computation impaired, language function intact, attention span short. Mood and affect, somewhat withdrawn. LABORATORY DATA: Reviewed. IMPRESSION: Bipolar disorder, mixed with psychotic features, mild cognitive impairment versus major neurocognitive disorder, Alzheimer, vascular with delusion, depression. Rest unchanged. Rule out urinary tract infection. PLAN: Continue current psychotropics. Treat the UTI if positive. Rest unchanged for now. ELMA DOLAN MD DR: YADIRA/nito JOB#: [id number] / [id number]
[2019-04-28] MEDS: LEVOTHYROXINE 75 MCG TABLET PO SCH (05:25)
[2019-04-28 06:35] VITALS: BP 122/76
[2019-04-28] MEDS: risperiDONE 0.25 MG TABLET. PO SCH (07:56)
[2019-04-28] MEDS: LACTOBACILLUS RHAMNOSUS GG 1 CAPSULE. PO SCH ×2 (07:56→20:20)
[2019-04-28] MEDS: DIVALPROEX 125 MG CAP.SPRINK PO SCH ×2 (07:56→16:38)
[2019-04-28] MEDS: ASPIRIN 81 MG TAB.CHEW PO SCH (07:56)
[2019-04-28] MEDS: AMOXICILLIN 250 MG CAPSULE PO SCH ×3 (07:56→20:20)
[2019-04-28] MEDS: CETIRIZINE HCL 10 MG TABLET PO SCH (07:56)
[2019-04-28] MEDS: CITALOPRAM 10 MG TABLET. PO SCH (07:56)
[2019-04-28] MEDS: HYDROCORTISONE 1% TOPICAL OINTMENT 30GM TUBE. TP SCH ×2 (07:57→20:20)
[2019-04-28 16:21] VITALS: BP 131/64
[2019-04-28] MEDS ORDERED: SODIUM CHLORIDE 0.65% NASAL SPRAY 45ML BOTTLE. NS PRN (18:30)
[2019-04-28] MEDS: DONEPEZIL HCL 5 MG TABLET. PO SCH (20:20)
[2019-04-28] MEDS: risperiDONE 0.5 MG TABLET. PO SCH (20:20)
--- NOTE | 2019-04-28 21:31 | PDOC ---
Exam Note: Marbin Note: Please also refer to the separate dictated note~for this date of service dictated separately.~Patient seen individually. Discussed the patient with Nursing staff reviewed the chart.~Reviewed interim history and current functioning. Reviewed vital signs,~Labs/ Radiology~and current medications noted below. Continue current treatment with the changes noted in the dictated addendum note Assessment: Vital Signs/I&O: Vital Signs Date Time Temp Pulse Resp B/P (MAP) Pulse Ox O2 Delivery O2 Flow Rate FiO2 04/28/19 16:21 97.2 81 20 131/64 (86) 95 Room Air I & O 04/27/19 04/27/19 04/28/19 14:59 22:59 06:59 Intake Total 720 ml 360 ml 240 ml Balance 720 ml 360 ml 240 ml Current Medications: I have reviewed the current psychotropics carefully including drug interactions. Risk benefit ratio favors no change other than as noted in my dictated progress note. Diagnosis: Problems: (1) Disruptive behavior (2) Anxiety disorder (3) Major neurocognitive disorder, due to vascular disease, with behavioral disturbance, mild (4) Impulse control disorder (5) Dementia, vascular, with delusions (6) Dementia, vascular, with depression (7) Dementia in Alzheimer's disease with delusions (8) Dementia in Alzheimer's disease with depression ELMA DOLAN MD Apr 28, 2019 21:31
--- NOTE | 2019-04-28 23:15 | PN ---
DATE: 04/27/2019 PSYCHIATRIC PROGRESS NOTE This late entry 04/27/2019 covers elements not covered in my initial note. SUBJECTIVE: I met with the patient evening of 04/27/2019. Per AMOL Vásquez, the patient slept 7-1/2 hours previous night. She has done better, less anxious or restless, does have a UTI, culture and sensitivity is awaited before we treated again. REVIEW OF SYSTEMS: No CV, , pulmonary, eye system symptoms on review. MENTAL STATUS EXAM: Oriented to herself and situation. Speech is coherent, abstraction fair, computation impaired, language function intact, attention span short. Mood and affect showing some ongoing lability, but improved. LABORATORY DATA: Reviewed. IMPRESSION: Unchanged from initial note. PLAN: No change from initial note. MAN German DOLAN MD DR: YADIRA/nito JOB#: [id number] / [id number]
[2019-04-29] MEDS: LEVOTHYROXINE 75 MCG TABLET PO SCH (05:06)
[2019-04-29] MEDS: SUMAtriptan SUCCINATE 50 MG TABLET PO PRN (05:47)
[2019-04-29 06:26] VITALS: BP 111/70
[2019-04-29] MEDS: AMOXICILLIN 250 MG CAPSULE PO SCH ×3 (08:14→20:38)
[2019-04-29] MEDS: risperiDONE 0.25 MG TABLET. PO SCH (08:14)
[2019-04-29] MEDS: ASPIRIN 81 MG TAB.CHEW PO SCH (08:14)
[2019-04-29] MEDS: CITALOPRAM 10 MG TABLET. PO SCH (08:14)
[2019-04-29] MEDS: LACTOBACILLUS RHAMNOSUS GG 1 CAPSULE. PO SCH ×2 (08:14→20:38)
[2019-04-29] MEDS: CETIRIZINE HCL 10 MG TABLET PO SCH (08:14)
[2019-04-29] MEDS: HYDROCORTISONE 1% TOPICAL OINTMENT 30GM TUBE. TP SCH ×2 (08:15→20:39)
[2019-04-29] MEDS: DIVALPROEX 125 MG CAP.SPRINK PO SCH ×2 (08:15→17:00)
[2019-04-29] MEDS ORDERED: predniSONE 10 MG TABLET PO ONE (15:30)
[2019-04-29 15:56] VITALS: BP 131/79
--- NOTE | 2019-04-29 20:34 | PN ---
DATE: 04/28/2019 PSYCHIATRIC PROGRESS NOTE This late entry 04/28/2019 covers the elements not covered in my initial note. SUBJECTIVE: I met with the patient in the evening of 04/28/2019. Per AMOL Vásquez, the patient slept 6-1/2 hours previous night. She is on Amoxil for UTI. She did well in the morning, but was irritable after lunch, especially after the family visited. She did attend groups. REVIEW OF SYSTEMS: No CV, , pulmonary, eye system symptoms on review. Reliability varies. MENTAL STATUS EXAM: Oriented to herself and situation. Speech is coherent, has some latency. Abstraction fair, computation impaired, language function intact, attention span short. Mood and affect somewhat anxious, labile at times, but improving. LABORATORY DATA: Reviewed. IMPRESSION: Unchanged from initial note. PLAN: No change from initial note. MAN German DOLAN MD DR: YADIRA/nito JOB#: [id number] / [id number]
[2019-04-29] MEDS: DONEPEZIL HCL 5 MG TABLET. PO SCH (20:38)
[2019-04-29] MEDS: risperiDONE 0.5 MG TABLET. PO SCH (20:39)
--- NOTE | 2019-04-29 21:27 | PDOC ---
Exam Note: Marbin Note: Please also refer to the separate dictated note~for this date of service dictated separately.~Patient seen individually. Discussed the patient with Nursing staff reviewed the chart.~Reviewed interim history and current functioning. Reviewed vital signs,~Labs/ Radiology~and current medications noted below. Continue current treatment with the changes noted in the dictated addendum note Assessment: Vital Signs/I&O: Vital Signs Date Time Temp Pulse Resp B/P (MAP) Pulse Ox O2 Delivery O2 Flow Rate FiO2 04/29/19 15:56 98.0 80 18 131/79 (96) 98 04/28/19 16:21 Room Air I & O 04/28/19 04/28/19 04/29/19 15:00 23:00 07:00 Intake Total 1200 ml 480 ml 240 ml Balance 1200 ml 480 ml 240 ml Current Medications: Meds: Current Medications Medications (Trade) Dose Ordered Sig/Michael Route PRN Reason Start Time Stop Time Status Last Admin Dose Admin Prednisone (Prednisone) 30 mg 1X ONCE PO 04/29/19 15:30 04/29/19 15:31 DC 04/29/19 15:30 I have reviewed the current psychotropics carefully including drug interactions. Risk benefit ratio favors no change other than as noted in my dictated progress note. Diagnosis: Problems: (1) Disruptive behavior (2) Anxiety disorder (3) Major neurocognitive disorder, due to vascular disease, with behavioral dis turbance, mild (4) Impulse control disorder (5) Dementia, vascular, with delusions (6) Dementia, vascular, with depression (7) Dementia in Alzheimer's disease with delusions (8) Dementia in Alzheimer's disease with depression ELMA DOLAN MD Apr 29, 2019 21:27
[2019-04-29] MEDS: ACETAMINOPHEN 325 MG TABLET PO PRN (21:33)
[2019-04-30] MEDS: LEVOTHYROXINE 75 MCG TABLET PO SCH (05:08)
[2019-04-30 06:14] VITALS: BP 154/76
[2019-04-30] MEDS: AMOXICILLIN 250 MG CAPSULE PO SCH ×3 (08:21→20:53)
[2019-04-30] MEDS: ASPIRIN 81 MG TAB.CHEW PO SCH (08:21)
[2019-04-30] MEDS: CETIRIZINE HCL 10 MG TABLET PO SCH (08:21)
[2019-04-30] MEDS: LACTOBACILLUS RHAMNOSUS GG 1 CAPSULE. PO SCH ×2 (08:21→20:54)
[2019-04-30] MEDS: methylPREDNISolone 4 MG TABLET. PO SCH ×3 (08:22→17:21)
[2019-04-30] MEDS: DIVALPROEX 125 MG CAP.SPRINK PO SCH ×2 (08:22→17:21)
[2019-04-30] MEDS: CITALOPRAM 10 MG TABLET. PO SCH (08:22)
[2019-04-30] MEDS: risperiDONE 0.25 MG TABLET. PO SCH (08:22)
[2019-04-30] MEDS: HYDROCORTISONE 1% TOPICAL OINTMENT 30GM TUBE. TP SCH ×2 (08:23→20:53)
[2019-04-30 16:10] VITALS: BP 125/75
[2019-04-30] MEDS: DONEPEZIL HCL 5 MG TABLET. PO SCH (20:54)
[2019-04-30] MEDS: risperiDONE 0.5 MG TABLET. PO SCH (20:54)
[2019-04-30] MEDS ORDERED: methylPREDNISolone 4 MG TABLET. PO SCH (21:00)
--- NOTE | 2019-04-30 22:09 | PDOC ---
Exam Note: Marbin Note: Please also refer to the separate dictated note~for this date of service dictated separately.~Patient seen individually. Discussed the patient with Nursing staff reviewed the chart.~Reviewed interim history and current functioning. Reviewed vital signs,~Labs/ Radiology~and current medications noted below. Continue current treatment with the changes noted in the dictated addendum note Assessment: Vital Signs/I&O: Vital Signs Date Time Temp Pulse Resp B/P (MAP) Pulse Ox O2 Delivery O2 Flow Rate FiO2 04/30/19 16:10 97.9 88 20 125/75 (92) 97 04/28/19 16:21 Room Air I & O 04/29/19 04/29/19 04/30/19 15:00 23:00 07:00 Intake Total 600 ml 240 ml 420 ml Balance 600 ml 240 ml 420 ml Current Medications: Meds: Current Medications Medications (Trade) Dose Ordered Sig/Michael Route PRN Reason Start Time Stop Time Status Last Admin Dose Admin Methylprednisolone (Medrol) 4 mg TIDPC PO 04/30/19 08:30 04/30/19 17:31 DC 04/30/19 17:21 Methylprednisolone (Medrol) 8 mg QHS PO 04/30/19 21:00 04/30/19 21:01 DC 04/30/19 20:55 I have reviewed the current psychotropics carefully including drug interactions. Risk benefit ratio favors no change other than as noted in my dictated progress note. Diagnosis: Problems: (1) Dementia (2) Disruptive behavior (3) Anxiety disorder (4) Major neurocognitive disorder, due to vascular disease, with behavioral disturbance, mild (5) Impulse control disorder (6) Dementia, vascular, with delusions (7) Dementia, vascular, with depression (8) Dementia in Alzheimer's disease with delusions (9) Dementia in Alzheimer's disease with depression ELMA DOLAN MD Apr 30, 2019 22:09
[2019-05-01] MEDS: LEVOTHYROXINE 75 MCG TABLET PO SCH (05:02)
[2019-05-01 06:34] VITALS: BP 115/69
[2019-05-01] MEDS: ASPIRIN 81 MG TAB.CHEW PO SCH (08:45)
[2019-05-01] MEDS: CITALOPRAM 10 MG TABLET. PO SCH (08:45)
[2019-05-01] MEDS: DIVALPROEX 125 MG CAP.SPRINK PO SCH ×2 (08:45→16:50)
[2019-05-01] MEDS: risperiDONE 0.25 MG TABLET. PO SCH (08:45)
[2019-05-01] MEDS: LACTOBACILLUS RHAMNOSUS GG 1 CAPSULE. PO SCH ×2 (08:45→21:06)
[2019-05-01] MEDS: CETIRIZINE HCL 10 MG TABLET PO SCH (08:45)
[2019-05-01] MEDS: AMOXICILLIN 250 MG CAPSULE PO SCH ×3 (08:45→21:07)
[2019-05-01] MEDS: methylPREDNISolone 4 MG TABLET. PO SCH ×4 (08:45→21:06)
[2019-05-01] MEDS: HYDROCORTISONE 1% TOPICAL OINTMENT 30GM TUBE. TP SCH ×2 (08:45→21:06)
[2019-05-01 16:04] VITALS: BP 128/71
[2019-05-01] MEDS: DONEPEZIL HCL 5 MG TABLET. PO SCH (21:07)
[2019-05-01] MEDS: risperiDONE 0.5 MG TABLET. PO SCH (21:07)
--- NOTE | 2019-05-01 21:40 | PN ---
DATE: 04/30/2019 PSYCHIATRIC PROGRESS NOTE This late entry 04/30/2019 covers elements not covered in my initial note. SUBJECTIVE: I met with the patient evening of 04/30/2019. Per AMOL Welsh, the patient slept 6-1/2 hours previous night. She has been verbally aggressive around dinnertime, received Zyprexa Zydis, then did better, somewhat perseverative in the evening regarding penguin and her clothes. REVIEW OF SYSTEMS: No CV, , pulmonary, eye system symptoms on review. MENTAL STATUS EXAM: Oriented to herself and situation. Speech has some latency, coherent. Abstraction fair, computation impaired, language function intact. Mood and affect, lability is improved. LABORATORY DATA: Reviewed. IMPRESSION: Unchanged from initial note. PLAN: No change from initial note. MAN German DOLAN MD DR: YADIRA/nito JOB#: [id number] / [id number]
--- NOTE | 2019-05-01 21:46 | PDOC ---
Exam Note: Marbin Note: Please also refer to the separate dictated note~for this date of service dictated separately.~Patient seen individually. Discussed the patient with Nursing staff reviewed the chart.~Reviewed interim history and current functioning. Reviewed vital signs,~Labs/ Radiology~and current medications noted below. Continue current treatment with the changes noted in the dictated addendum note Assessment: Vital Signs/I&O: Vital Signs Date Time Temp Pulse Resp B/P (MAP) Pulse Ox O2 Delivery O2 Flow Rate FiO2 05/01/19 16:04 97.2 89 18 128/71 (90) 98 04/28/19 16:21 Room Air I & O 04/30/19 04/30/19 05/01/19 15:00 23:00 07:00 Intake Total 600 ml 600 ml Balance 600 ml 600 ml Current Medications: Meds: Current Medications Medications (Trade) Dose Ordered Sig/Michael Route PRN Reason Start Time Stop Time Status Last Admin Dose Admin Methylprednisolone (Medrol) 4 mg QIDAFTMEAL PO 05/01/19 09:00 05/01/19 21:01 DC 05/01/19 21:06 I have reviewed the current psychotropics carefully including drug interactions. Risk benefit ratio favors no change other than as noted in my dictated progress note. Diagnosis: Problems: (1) Disruptive behavior (2) Anxiety disorder (3) Major neurocognitive disorder, due to vascular disease, with behavioral disturbance, mild (4) Impulse control disorder (5) Dementia, vascular, with delusions (6) Dementia, vascular, with depression (7) Dementia in Alzheimer's disease with delusions (8) Dementia in Alzheimer's disease with depression ELMA DOLAN MD May 01, 2019 21:46
--- NOTE | 2019-05-02 04:03 | PN ---
DATE: 04/29/2019 PSYCHIATRIC PROGRESS NOTE This late entry, 04/29/2019, covers elements not covered in my initial note. SUBJECTIVE: I met with the patient evening of 04/29/2019 and staffed at a treatment team meeting with the entire team earlier in the day. Appetite 90%, sleeping average 7 hours, slept 5-1/2 hours previous night. She is suspicious, anxious, little less confused, compliant with medications, remains on Amoxil for her UTI, accepted at [facility] for next [facility]. REVIEW OF SYSTEMS: No CV, , pulmonary, eye system symptoms on review. MENTAL STATUS EXAM: Reasonably oriented to herself, situation at times, more confused at other times. Abstraction fair, computation impaired, language function intact, attention span short. Speech is coherent. Mood and affect is improved. LABORATORY DATA: Reviewed. IMPRESSION: Bipolar disorder, mixed with psychotic features, mild cognitive impairment versus early major neurocognitive disorder, Alzheimer, vascular with delusion. PLAN: No change from initial note. ELMA DOLAN MD DR: YADIRA/nito JOB#: [id number] / [id number]
[2019-05-02] MEDS: LEVOTHYROXINE 75 MCG TABLET PO SCH (05:41)
[2019-05-02 05:53] VITALS: BP 144/74
[2019-05-02 06:37] LABS: BASO % 0 % (0-3); EOS % 0 % (0-3); HEMATOCRIT 31.9 % (36.0-47.0); HEMOGLOBIN 10.5 g/dL (12.0-15.5); LYMPH # 0.8 x10^3/uL (1.0-4.8); LYMPH % 16 % (24-48); MEAN CORPUSCULAR HEMOGLOBIN 32 pg (25-35); MEAN CORPUSCULAR HGB CONC 33 g/dL (31-37); MEAN CORPUSCULAR VOLUME 97 fL (79-100); MONO # 0.7 x10^3/uL (0.0-1.1); MONO % 14 % (0-9); NEUT # 3.6 x10^3uL (1.8-7.7); NEUT % 69 % (31-73); PLATELET COUNT 143 x10^3/uL (140-400); RED BLOOD COUNT 3.27 x10^6/uL (3.50-5.40); RED CELL DISTRIBUTION WIDTH 13.5 % (11.5-14.5); WHITE BLOOD COUNT 5.3 x10^3/uL (4.0-11.0)
[2019-05-02 06:50] LABS: ALBUMIN 2.6 g/dL (3.4-5.0); ALBUMIN/GLOBULIN RATIO 0.8 (1.0-1.7); CALCIUM 7.9 mg/dL (8.5-10.1); CREATININE 1.1 mg/dL (0.6-1.0); GFR 47.7; POTASSIUM 4.8 mmol/L (3.5-5.1); TOTAL BILIRUBIN 0.1 mg/dL (0.2-1.0); TOTAL PROTEIN 5.8 g/dL (6.4-8.2)
[2019-05-02 07:16] LABS: % BANDS 2 % (0-9); % BASOS 1 % (0-3); % LYMPHS 17 % (24-48); % METAS 2 % (0-0); % MONOS 14 % (0-10); % SEGS 64 % (35-66)
[2019-05-02 07:17] LABS: PLT ESTIMATE DECREASED (ADEQUATE)
[2019-05-02 07:19] LABS: TOXIC GRANULATION SLIGHT
[2019-05-02 07:20] LABS: TOXIC VACUOLATION SLIGHT
[2019-05-02] MEDS: CETIRIZINE HCL 10 MG TABLET PO SCH (08:28)
[2019-05-02] MEDS: ASPIRIN 81 MG TAB.CHEW PO SCH (08:28)
[2019-05-02] MEDS: DIVALPROEX 125 MG CAP.SPRINK PO SCH ×2 (08:28→16:52)
[2019-05-02] MEDS: AMOXICILLIN 250 MG CAPSULE PO SCH ×3 (08:28→20:40)
[2019-05-02] MEDS: CITALOPRAM 10 MG TABLET. PO SCH (08:28)
[2019-05-02] MEDS: LACTOBACILLUS RHAMNOSUS GG 1 CAPSULE. PO SCH ×2 (08:29→20:40)
[2019-05-02] MEDS: methylPREDNISolone 4 MG TABLET. PO SCH ×3 (08:29→20:40)
[2019-05-02] MEDS: risperiDONE 0.25 MG TABLET. PO SCH (08:29)
[2019-05-02] MEDS: HYDROCORTISONE 1% TOPICAL OINTMENT 30GM TUBE. TP SCH ×2 (08:30→20:40)
[2019-05-02 16:14] VITALS: BP 116/69
[2019-05-02] MEDS: risperiDONE 0.5 MG TABLET. PO SCH (20:40)
[2019-05-02] MEDS: BENZOCAINE/MENTHOL LOZNGE 18'S BOX. PO PRN (20:40)
[2019-05-02] MEDS: DONEPEZIL HCL 5 MG TABLET. PO SCH (20:40)
--- NOTE | 2019-05-02 21:30 | PDOC ---
Exam Note: Marbin Note: Please also refer to the separate dictated note~for this date of service dictated separately.~Patient seen individually. Discussed the patient with Nursing staff reviewed the chart.~Reviewed interim history and current functioning. Reviewed vital signs,~Labs/ Radiology~and current medications noted below. Continue current treatment with the changes noted in the dictated addendum note Assessment: Vital Signs/I&O: Vital Signs Date Time Temp Pulse Resp B/P (MAP) Pulse Ox O2 Delivery O2 Flow Rate FiO2 05/02/19 16:14 97.8 69 16 116/69 (85) 97 04/28/19 16:21 Room Air I & O 05/01/19 05/01/19 05/02/19 15:00 23:00 07:00 Intake Total 600 ml 480 ml 240 ml Balance 600 ml 480 ml 240 ml Labs: Laboratory Tests Test 05/02/19 06:10 White Blood Count 5.3 x10^3/uL (4.0-11.0) Red Blood Count 3.27 x10^6/uL (3.50-5.40) L Hemoglobin 10.5 g/dL (12.0-15.5) L Hematocrit 31.9 % (36.0-47.0) L Mean Corpuscular Volume 97 fL (79-100) Mean Corpuscular Hemoglobin 32 pg (25-35) Mean Corpuscular Hemoglobin Concent 33 g/dL (31-37) Red Cell Distribution Width 13.5 % (11.5-14.5) Platelet Count 143 x10^3/uL (140-400) Neutrophils (%) (Auto) 69 % (31-73) Lymphocytes (%) (Auto) 16 % (24-48) L Monocytes (%) (Auto) 14 % (0-9) H Eosinophils (%) (Auto) 0 % (0-3) Basophils (%) (Auto) 0 % (0-3) Neutrophils # (Auto) 3.6 x10^3uL (1.8-7.7) Lymphocytes # (Auto) 0.8 x10^3/uL (1.0-4.8) L Monocytes # (Auto) 0.7 x10^3/uL (0.0-1.1) Eosinophils # (Auto) 0.0 x10^3/uL (0.0-0.7) Basophils # (Auto) 0.0 x10^3/uL (0.0-0.2) Segmented Neutrophils % 64 % (35-66) Band Neutrophils % 2 % (0-9) Lymphocytes % 17 % (24-48) L Monocytes % 14 % (0-10) H Basophils % 1 % (0-3) Metamyelocytes % 2 % (0-0) H Toxic Granulation Slight Toxic Vacuolation Slight Platelet Estimate Decreased (ADEQUATE) Large Platelets Occ Sodium Level 143 mmol/L (136-145) Potassium Level 4.8 mmol/L (3.5-5.1) Chloride Level 107 mmol/L (98-107) Carbon Dioxide Level 28 mmol/L (21-32) Anion Gap 8 (6-14) Blood Urea Nitrogen 29 mg/dL (7-20) H Creatinine 1.1 mg/dL (0.6-1.0) H Estimated GFR (Cockcroft-Gault) 47.7 BUN/Creatinine Ratio 26 (6-20) H Glucose Level 143 mg/dL (70-99) H Calcium Level 7.9 mg/dL (8.5-10.1) L Total Bilirubin 0.1 mg/dL (0.2-1.0) L Aspartate Amino Transferase (AST) 15 U/L (15-37) Alanine Aminotransferase (ALT) 14 U/L (14-59) Alkaline Phosphatase 86 U/L (46-116) Total Protein 5.8 g/dL (6.4-8.2) L Albumin 2.6 g/dL (3.4-5.0) L Albumin/Globulin Ratio 0.8 (1.0-1.7) L Current Medications: Meds: Current Medications Medications (Trade) Dose Ordered Sig/Michael Route PRN Reason Start Time Stop Time Status Last Admin Dose Admin Methylprednisolone (Medrol) 4 mg TID PO 05/02/19 09:00 05/02/19 21:01 DC 05/02/19 20:40 Throat Lozenges (Cepacol Sore Throat Lozenge) 1 lolis PRN Q2HR PRN PO SORE THROAT 05/02/19 18:30 05/02/19 20:40 I have reviewed the current psychotropics carefully including drug interactions. Risk benefit ratio favors no change other than as noted in my dictated progress note. Diagnosis: Problems: (1) Anxiety disorder (2) Major neurocognitive disorder, due to vascular disease, with behavioral disturbance, mild (3) Impulse control disorder (4) Dementia, vascular, with delusions (5) Dementia, vascular, with depression (6) Dementia in Alzheimer's disease with delusions (7) Dementia in Alzheimer's disease with depression ELMA DOLAN MD May 02, 2019 21:30
--- NOTE | 2019-05-02 23:59 | PN ---
DATE: 05/01/2019 PSYCHIATRIC PROGRESS NOTE This late entry 05/01/2019 covers elements not covered in my initial note. SUBJECTIVE: I met with the patient in the evening. Per AMOL Welsh, the patient slept 5-1/4 hours previous night. She has been intermittently agitated with family during visiting hours, received Zyprexa at 5:00 p.m., seemed to help. REVIEW OF SYSTEMS: Ambulation is reasonable. some tired, complains of tiredness. She does have a UTI worsening her irritability. REVIEW OF SYSTEMS: No CV, , pulmonary, eye system symptoms on review. MENTAL STATUS EXAM: Oriented to herself and situation. Speech is coherent, has some latency. Abstraction fair, computation impaired, language function intact. Mood and affect somewhat anxious, labile. LABORATORY DATA: Reviewed. IMPRESSION: Unchanged from initial note. PLAN: No change from initial note. MAN German DOLAN MD DR: YADIRA/nito JOB#: [id number] / [id number]
[2019-05-03] MEDS ORDERED: ACET325T21 PO (00:19)
[2019-05-03] MEDS ORDERED: AMOX500C PO (00:20)
[2019-05-03] MEDS ORDERED: CETI10TA16 PO (00:21)
[2019-05-03] MEDS ORDERED: CHOL500021 PO (00:22)
[2019-05-03] MEDS ORDERED: CYAN10002 IM (00:26)
[2019-05-03] MEDS ORDERED: DIVA125C2 PO (00:27)
[2019-05-03] MEDS ORDERED: FLUT9.9S NS (00:28)
[2019-05-03] MEDS ORDERED: HYDR42CR2 TP (00:29)
[2019-05-03] MEDS ORDERED: LOPE2TAB27 PO (00:30)
[2019-05-03] MEDS ORDERED: LACT1CAP19 PO (00:30)
[2019-05-03] MEDS ORDERED: MAG355OR17 PO (00:31)
[2019-05-03] MEDS ORDERED: MAGN24003 PO (00:31)
[2019-05-03] MEDS ORDERED: METH28OI2 TP (00:32)
[2019-05-03] MEDS ORDERED: OLAN5TAB5 PO (00:33)
[2019-05-03] MEDS ORDERED: SODI30SP NS (00:34)
[2019-05-03] MEDS ORDERED: METH4TAB7 PO ×2 (00:36)
[2019-05-03] MEDS ORDERED: RISP0.5T24 PO ×2 (00:40)
[2019-05-03] MEDS: LEVOTHYROXINE 75 MCG TABLET PO SCH (05:37)
[2019-05-03 05:58] VITALS: BP 151/72
[2019-05-03] MEDS: CETIRIZINE HCL 10 MG TABLET PO SCH (08:32)
[2019-05-03] MEDS: DIVALPROEX 125 MG CAP.SPRINK PO SCH ×2 (08:32→16:56)
[2019-05-03] MEDS: ASPIRIN 81 MG TAB.CHEW PO SCH (08:32)
[2019-05-03] MEDS: risperiDONE 0.25 MG TABLET. PO SCH (08:32)
[2019-05-03] MEDS: methylPREDNISolone 4 MG TABLET. PO SCH ×2 (08:32→20:06)
[2019-05-03] MEDS: LACTOBACILLUS RHAMNOSUS GG 1 CAPSULE. PO SCH ×2 (08:32→20:06)
[2019-05-03] MEDS: AMOXICILLIN 250 MG CAPSULE PO SCH ×3 (08:32→20:06)
[2019-05-03] MEDS: CITALOPRAM 10 MG TABLET. PO SCH (08:32)
[2019-05-03] MEDS: HYDROCORTISONE 1% TOPICAL OINTMENT 30GM TUBE. TP SCH ×2 (08:33→20:07)
[2019-05-03] MEDS: BENZOCAINE/MENTHOL LOZNGE 18'S BOX. PO PRN ×3 (13:12→20:06)
[2019-05-03 16:31] VITALS: BP 125/81
[2019-05-03] MEDS: DONEPEZIL HCL 5 MG TABLET. PO SCH (20:06)
[2019-05-03] MEDS: risperiDONE 0.5 MG TABLET. PO SCH (20:06)
--- NOTE | 2019-05-03 20:45 | PN ---
DATE: 05/02/2019 PSYCHIATRIC PROGRESS NOTE. This late entry of 05/02/2019 covers the elements not covered in my initial note. SUBJECTIVE: I met with the patient in the evening of 05/02/2019. Per AMOL Vásquez, the patient slept 7-1/4 hours previous night. She has been quite obsessive about her belongings. At times, she wears her pants, other times she seems confused and have then removed until staff intervened. She is on Amoxil for her UTI, which could be worsening her confusion and we will see once this resolves how she does. REVIEW OF SYSTEMS: No CV, , pulmonary, eye system symptoms on review. MENTAL STATUS EXAM: Reasonably oriented to herself, situation at times, more confused at others. Speech coherent, abstraction fair, computation impaired, language function intact, attention span short. Mood and affect remain somewhat anxious, distractible at times. LABORATORY DATA: Reviewed. IMPRESSION: Unchanged from initial note. PLAN: No change from initial note. Treat the UTI. Maintain rest of the psychotropics unchanged, then adjust as clinically indicated. MAN German DOLAN MD DR: YADIRA/nito JOB#: [id number] / [id number]
--- NOTE | 2019-05-03 21:26 | PDOC ---
Exam Note: Marbin Note: Please also refer to the separate dictated note~for this date of service dictated separately.~Patient seen individually. Discussed the patient with Nursing staff reviewed the chart.~Reviewed interim history and current functioning. Reviewed vital signs,~Labs/ Radiology~and current medications noted below. Continue current treatment with the changes noted in the dictated addendum note Assessment: Vital Signs/I&O: Vital Signs Date Time Temp Pulse Resp B/P (MAP) Pulse Ox O2 Delivery O2 Flow Rate FiO2 05/03/19 16:31 97.2 70 18 125/81 (96) 98 04/28/19 16:21 Room Air I & O 05/02/19 05/02/19 05/03/19 15:00 23:00 07:00 Intake Total 1080 ml 240 ml 240 ml Balance 1080 ml 240 ml 240 ml Current Medications: Meds: Current Medications Medications (Trade) Dose Ordered Sig/Michael Route PRN Reason Start Time Stop Time Status Last Admin Dose Admin Methylprednisolone (Medrol) 4 mg BID PO 05/03/19 09:00 05/03/19 21:01 DC 05/03/19 20:06 I have reviewed the current psychotropics carefully including drug interactions. Risk benefit ratio favors no change other than as noted in my dictated progress note. Diagnosis: Problems: (1) Disruptive behavior (2) Anxiety disorder (3) Major neurocognitive disorder, due to vascular disease, with behavioral disturbance, mild (4) Impulse control disorder (5) Dementia, vascular, with delusions (6) Dementia, vascular, with depression (7) Dementia in Alzheimer's disease with delusions (8) Dementia in Alzheimer's disease with depression ELMA DOLAN MD May 03, 2019 21:26
[2019-05-04 05:55] VITALS: BP 110/58
[2019-05-04] MEDS: LEVOTHYROXINE 75 MCG TABLET PO SCH (06:21)
[2019-05-04] MEDS ORDERED: methylPREDNISolone 4 MG TABLET. PO SCH (09:00)
[2019-05-04] MEDS: CYANOCOBALAMIN (VITAMIN B-12) 1,000 MCG/ML VIAL IM SCH (09:00)
[2019-05-04] MEDS: HYDROCORTISONE 1% TOPICAL OINTMENT 30GM TUBE. TP SCH ×2 (09:00→20:18)
[2019-05-04] MEDS: LACTOBACILLUS RHAMNOSUS GG 1 CAPSULE. PO SCH ×2 (09:17→20:15)
[2019-05-04] MEDS: ASPIRIN 81 MG TAB.CHEW PO SCH (09:18)
[2019-05-04] MEDS: AMOXICILLIN 250 MG CAPSULE PO SCH (09:18)
[2019-05-04] MEDS: risperiDONE 0.25 MG TABLET. PO SCH (09:18)
[2019-05-04] MEDS: CITALOPRAM 10 MG TABLET. PO SCH (09:19)
[2019-05-04] MEDS: CHOLECALCIFEROL (VITAMIN D3) 50,000 UNIT CAPSULE PO SCH (09:19)
[2019-05-04] MEDS: DIVALPROEX 125 MG CAP.SPRINK PO SCH ×2 (09:19→17:37)
[2019-05-04] MEDS: CETIRIZINE HCL 10 MG TABLET PO SCH (09:19)
[2019-05-04] MEDS: SUMAtriptan SUCCINATE 50 MG TABLET PO PRN (09:20)
[2019-05-04] MEDS: BENZOCAINE/MENTHOL LOZNGE 18'S BOX. PO PRN ×2 (09:21→20:18)
[2019-05-04 16:17] VITALS: BP 123/75
[2019-05-04] MEDS: risperiDONE 0.5 MG TABLET. PO SCH (20:15)
[2019-05-04] MEDS: DONEPEZIL HCL 5 MG TABLET. PO SCH (20:15)
--- NOTE | 2019-05-04 21:25 | PDOC ---
Exam Note: Marbin Note: Please also refer to the separate dictated note~for this date of service dictated separately.~Patient seen individually. Discussed the patient with Nursing staff reviewed the chart.~Reviewed interim history and current functioning. Reviewed vital signs,~Labs/ Radiology~and current medications noted below. Continue current treatment with the changes noted in the dictated addendum note Assessment: Vital Signs/I&O: Vital Signs Date Time Temp Pulse Resp B/P (MAP) Pulse Ox O2 Delivery O2 Flow Rate FiO2 05/04/19 16:17 97.3 71 16 123/75 (91) 98 04/28/19 16:21 Room Air I & O 05/03/19 05/03/19 05/04/19 15:00 23:00 07:00 Intake Total 720 ml 480 ml 240 ml Balance 720 ml 480 ml 240 ml Current Medications: Meds: Current Medications Medications (Trade) Dose Ordered Sig/Michael Route PRN Reason Start Time Stop Time Status Last Admin Dose Admin Methylprednisolone (Medrol) 4 mg DAILY PO 05/04/19 09:00 05/04/19 09:01 DC 05/04/19 09:19 I have reviewed the current psychotropics carefully including drug interactions. Risk benefit ratio favors no change other than as noted in my dictated progress note. Diagnosis: Problems: (1) Disruptive behavior (2) Anxiety disorder (3) Major neurocognitive disorder, due to vascular disease, with behavioral disturbance, mild (4) Impulse control disorder (5) Dementia, vascular, with delusions (6) Dementia, vascular, with depression (7) Dementia in Alzheimer's disease with delusions (8) Dementia in Alzheimer's disease with depression ELMA DOLAN MD May 04, 2019 21:25
--- NOTE | 2019-05-04 22:00 | PN ---
DATE: 05/03/2019 PSYCHIATRIC PROGRESS NOTE This late entry, 05/03, covers the elements not covered in my initial note. SUBJECTIVE: I met with the patient on the evening of 05/03. Per AMOL Vásquez, the patient slept 5-3/4 hours previous night. She was declined by [facility] may be accepted by [facility]. She was irritable in the morning secondary to her gift cisneros being thrown by nursing staff. She remains on Amoxil for her UTI till 05/04. REVIEW OF SYSTEMS: No CV, , pulmonary, eye systems symptoms on review. MENTAL STATUS EXAM: Oriented to herself and situation. Speech has some latency, coherent. Abstraction fair, computation impaired, language function intact, attention span short. Mood and affect somewhat withdrawn. LABORATORY DATA: Reviewed. IMPRESSION: Bipolar disorder, mixed with psychotic features; major neurocognitive disorder, early Alzheimer vascular with delusion, depression. Rest unchanged. PLAN: No change from initial note. Treat the UTI. Make further adjustments as clinically indicated. MAN German DOLAN MD DR: YADIRA/nito JOB#: [id number] / [id number]
[2019-05-05 05:26] VITALS: BP 132/85
[2019-05-05] MEDS: LEVOTHYROXINE 75 MCG TABLET PO SCH (06:17)
[2019-05-05] MEDS: risperiDONE 0.25 MG TABLET. PO SCH (08:24)
[2019-05-05] MEDS: LACTOBACILLUS RHAMNOSUS GG 1 CAPSULE. PO SCH ×2 (08:24→21:00)
[2019-05-05] MEDS: CITALOPRAM 10 MG TABLET. PO SCH (08:24)
[2019-05-05] MEDS: CETIRIZINE HCL 10 MG TABLET PO SCH (08:24)
[2019-05-05] MEDS: DIVALPROEX 125 MG CAP.SPRINK PO SCH ×2 (08:24→16:52)
[2019-05-05] MEDS: ASPIRIN 81 MG TAB.CHEW PO SCH (08:24)
[2019-05-05] MEDS: HYDROCORTISONE 1% TOPICAL OINTMENT 30GM TUBE. TP SCH ×2 (08:25→21:00)
[2019-05-05] MEDS: BENZOCAINE/MENTHOL LOZNGE 18'S BOX. PO PRN (09:27)
[2019-05-05 15:55] VITALS: BP 156/78
[2019-05-05] MEDS: risperiDONE 0.5 MG TABLET. PO SCH (21:00)
[2019-05-05] MEDS: DONEPEZIL HCL 5 MG TABLET. PO SCH (21:00)
--- NOTE | 2019-05-05 21:29 | PDOC ---
Exam Note: Marbin Note: Please also refer to the separate dictated note~for this date of service dictated separately.~Patient seen individually. Discussed the patient with Nursing staff reviewed the chart.~Reviewed interim history and current functioning. Reviewed vital signs,~Labs/ Radiology~and current medications noted below. Continue current treatment with the changes noted in the dictated addendum note Assessment: Vital Signs/I&O: Vital Signs Date Time Temp Pulse Resp B/P (MAP) Pulse Ox O2 Delivery O2 Flow Rate FiO2 05/05/19 15:55 97.6 87 18 156/78 (104) 96 05/05/19 05:26 Room Air I & O 05/04/19 05/04/19 05/05/19 15:00 23:00 07:00 Intake Total 720 ml 240 ml 120 ml Balance 720 ml 240 ml 120 ml Current Medications: I have reviewed the current psychotropics carefully including drug interactions. Risk benefit ratio favors no change other than as noted in my dictated progress note. Diagnosis: Problems: (1) Disruptive behavior (2) Anxiety disorder (3) Major neurocognitive disorder, due to vascular disease, with behavioral disturbance, mild (4) Impulse control disorder (5) Dementia, vascular, with delusions (6) Dementia, vascular, with depression (7) Dementia in Alzheimer's disease with delusions (8) Dementia in Alzheimer's disease with depression ELMA DOLAN MD May 05, 2019 21:28
[2019-05-06] MEDS: LEVOTHYROXINE 75 MCG TABLET PO SCH (05:35)
[2019-05-06 06:36] VITALS: BP 122/75
[2019-05-06] MEDS: risperiDONE 0.25 MG TABLET. PO SCH (08:39)
[2019-05-06] MEDS: LACTOBACILLUS RHAMNOSUS GG 1 CAPSULE. PO SCH ×2 (08:39→20:56)
[2019-05-06] MEDS: DIVALPROEX 125 MG CAP.SPRINK PO SCH ×2 (08:39→17:00)
[2019-05-06] MEDS: CITALOPRAM 10 MG TABLET. PO SCH (08:39)
[2019-05-06] MEDS: ASPIRIN 81 MG TAB.CHEW PO SCH (08:39)
[2019-05-06] MEDS: CETIRIZINE HCL 10 MG TABLET PO SCH (08:39)
[2019-05-06] MEDS: HYDROCORTISONE 1% TOPICAL OINTMENT 30GM TUBE. TP SCH ×2 (08:40→20:56)
[2019-05-06 16:36] VITALS: BP 150/75
[2019-05-06] MEDS: DONEPEZIL HCL 5 MG TABLET. PO SCH (20:55)
[2019-05-06] MEDS: risperiDONE 0.5 MG TABLET. PO SCH (20:56)
--- NOTE | 2019-05-06 21:30 | PDOC ---
Exam Note: Marbin Note: Please also refer to the separate dictated note~for this date of service dictated separately.~Patient seen individually. Discussed the patient with Nursing staff reviewed the chart.~Reviewed interim history and current functioning. Reviewed vital signs,~Labs/ Radiology~and current medications noted below. Continue current treatment with the changes noted in the dictated addendum note Assessment: Vital Signs/I&O: Vital Signs Date Time Temp Pulse Resp B/P (MAP) Pulse Ox O2 Delivery O2 Flow Rate FiO2 05/06/19 16:36 98.0 77 16 150/75 (100) 94 05/05/19 05:26 Room Air I & O 05/05/19 05/05/19 05/06/19 15:00 23:00 07:00 Intake Total 960 ml 480 ml 240 ml Balance 960 ml 480 ml 240 ml Current Medications: I have reviewed the current psychotropics carefully including drug interactions. Risk benefit ratio favors no change other than as noted in my dictated progress note. Diagnosis: Problems: (1) Disruptive behavior (2) Anxiety disorder (3) Major neurocognitive disorder, due to vascular disease, with behavioral disturbance, mild (4) Impulse control disorder (5) Dementia, vascular, with delusions (6) Dementia, vascular, with depression (7) Dementia in Alzheimer's disease with delusions (8) Dementia in Alzheimer's disease with depression ELMA DOLAN MD May 06, 2019 21:30
--- NOTE | 2019-05-06 22:58 | PN ---
DATE: 05/04/2019 PSYCHIATRIC PROGRESS NOTE This late entry 05/04/2019 covers elements not covered in my initial note. SUBJECTIVE: I met with the patient evening of 05/04/2019. Per AMOL Vásquez, the patient slept 7-3/4 hours previous night. She had a difficult day, was easily frustrated, wanting to be discharged, but placement has not been sought as yet. Antibiotics have been discontinued for her UTI. She does seem to have some URI symptoms. We will defer to Dr. Hylton. REVIEW OF SYSTEMS: No CV, , eye, ENT system symptoms on review. Does have some URI symptoms. MENTAL STATUS EXAM: Oriented to herself and situation. Speech has some latency, coherent. Abstraction fair, computation impaired, language function intact, attention span short. Mood and affect somewhat anxious, labile. LABORATORY DATA: Reviewed. IMPRESSION: Unchanged from initial note. PLAN: No change from initial note. ELMA DOLAN MD DR: YADIRA/nito JOB#: [id number] / [id number]
--- NOTE | 2019-05-06 22:59 | PN ---
DATE: 05/05/2019 PSYCHIATRIC PROGRESS NOTE This late entry 05/05/2019 covers the elements not covered in my initial note. SUBJECTIVE: I met with the patient in the evening of 05/05/2019 and staffed at a treatment team meeting with the entire team earlier in the day. Appetite is 100%, sleeping about 7 hours, irritable, tearful, crying at times, and compliant with medications. REVIEW OF SYSTEMS: No CV, , eye, ENT system symptoms on review. She has some URI symptoms. MENTAL STATUS EXAM: Oriented to herself and situation. Speech is coherent, less pressured. Abstraction fair, computation impaired, language function intact. Mood and affect, lability is improved. LABORATORY DATA: Reviewed. IMPRESSION: Unchanged from initial note. PLAN: No change from initial note. Possible transition to [facility] 05/06/2019. MAN German DOLAN MD DR: YADIRA/nito JOB#: [id number] / [id number]
[2019-05-07] MEDS: LEVOTHYROXINE 75 MCG TABLET PO SCH (05:32)
[2019-05-07 06:44] VITALS: BP 112/72
[2019-05-07] MEDS: LACTOBACILLUS RHAMNOSUS GG 1 CAPSULE. PO SCH ×2 (08:35→20:17)
[2019-05-07] MEDS: DIVALPROEX 125 MG CAP.SPRINK PO SCH ×2 (08:35→17:00)
[2019-05-07] MEDS: risperiDONE 0.25 MG TABLET. PO SCH (08:35)
[2019-05-07] MEDS: HYDROCORTISONE 1% TOPICAL OINTMENT 30GM TUBE. TP SCH ×2 (08:35→20:17)
[2019-05-07] MEDS: CETIRIZINE HCL 10 MG TABLET PO SCH (08:35)
[2019-05-07] MEDS: CITALOPRAM 10 MG TABLET. PO SCH (08:35)
[2019-05-07] MEDS: ASPIRIN 81 MG TAB.CHEW PO SCH (08:35)
[2019-05-07 16:17] VITALS: BP 105/70
[2019-05-07] MEDS: DONEPEZIL HCL 5 MG TABLET. PO SCH (20:16)
[2019-05-07] MEDS: risperiDONE 0.5 MG TABLET. PO SCH (20:17)
--- NOTE | 2019-05-07 21:32 | PDOC ---
Exam Note: Marbin Note: Please also refer to the separate dictated note~for this date of service dictated separately.~Patient seen individually. Discussed the patient with Nursing staff reviewed the chart.~Reviewed interim history and current functioning. Reviewed vital signs,~Labs/ Radiology~and current medications noted below. Continue current treatment with the changes noted in the dictated addendum note Assessment: Vital Signs/I&O: Vital Signs Date Time Temp Pulse Resp B/P (MAP) Pulse Ox O2 Delivery O2 Flow Rate FiO2 05/07/19 16:17 97.6 86 20 105/70 (82) 96 Nasal Cannula 2.0 I & O 05/06/19 05/06/19 05/07/19 15:00 23:00 07:00 Intake Total 960 ml 480 ml 120 ml Balance 960 ml 480 ml 120 ml Current Medications: I have reviewed the current psychotropics carefully including drug interactions. Risk benefit ratio favors no change other than as noted in my dictated progress note. Diagnosis: Problems: (1) Disruptive behavior (2) Anxiety disorder (3) Major neurocognitive disorder, due to vascular disease, with behavioral disturbance, mild (4) Impulse control disorder (5) Dementia, vascular, with delusions (6) Dementia, vascular, with depression (7) Dementia in Alzheimer's disease with delusions (8) Dementia in Alzheimer's disease with depression ELMA DOLAN MD May 07, 2019 21:32
[2019-05-08 05:18] VITALS: BP 120/67
[2019-05-08] MEDS: LEVOTHYROXINE 75 MCG TABLET PO SCH (05:58)
[2019-05-08] MEDS: risperiDONE 0.25 MG TABLET. PO SCH (08:16)
[2019-05-08] MEDS: ASPIRIN 81 MG TAB.CHEW PO SCH (08:16)
[2019-05-08] MEDS: LACTOBACILLUS RHAMNOSUS GG 1 CAPSULE. PO SCH ×3 (08:16→20:34)
[2019-05-08] MEDS: CITALOPRAM 10 MG TABLET. PO SCH (08:16)
[2019-05-08] MEDS: CETIRIZINE HCL 10 MG TABLET PO SCH (08:16)
[2019-05-08] MEDS: DIVALPROEX 125 MG CAP.SPRINK PO SCH ×2 (08:16→17:05)
[2019-05-08] MEDS: HYDROCORTISONE 1% TOPICAL OINTMENT 30GM TUBE. TP SCH ×2 (09:00→20:28)
[2019-05-08] MEDS: HYDROcodone/APAP 10/325 1 TAB TABLET PO PRN (10:50)
[2019-05-08 16:22] VITALS: BP 121/62
[2019-05-08] MEDS: DONEPEZIL HCL 5 MG TABLET. PO SCH ×2 (20:27→20:34)
[2019-05-08] MEDS: risperiDONE 0.5 MG TABLET. PO SCH ×2 (20:27→20:34)
[2019-05-08 21:12] LABS: BACTERIA,URINE FEW /HPF (0-FEW); BILIRUBIN,URINE NEG (NEG); CLARITY,URINE HAZY; COLOR,URINE YELLOW; GLUCOSE,URINE NEG (NEG); NITRITE,URINE NEG (NEG); RBC,URINE 0 /HPF (0-2); SQUAMOUS EPITHELIAL CELL,UR OCC /LPF
--- NOTE | 2019-05-08 21:35 | PDOC ---
Exam Note: Marbin Note: Please also refer to the separate dictated note~for this date of service dictated separately.~Patient seen individually. Discussed the patient with Nursing staff reviewed the chart.~Reviewed interim history and current functioning. Reviewed vital signs,~Labs/ Radiology~and current medications noted below. Continue current treatment with the changes noted in the dictated addendum note Assessment: Vital Signs/I&O: Vital Signs Date Time Temp Pulse Resp B/P (MAP) Pulse Ox O2 Delivery O2 Flow Rate FiO2 05/08/19 16:22 98.6 73 16 121/62 (81) 95 05/08/19 12:00 Room Air 05/07/19 16:17 2.0 I & O 05/07/19 05/07/19 05/08/19 15:00 23:00 07:00 Intake Total 600 ml 840 ml Balance 600 ml 840 ml Labs: Laboratory Tests Test 05/08/19 20:45 Urine Collection Type Unknown Urine Color Yellow Urine Clarity Hazy Urine pH 5.5 Urine Specific [place] 1.020 Urine Protein Neg (NEG-TRACE) Urine Glucose (UA) Neg mg/dL (NEG) Urine Ketones (Stick) Trace mg/dL (NEG) Urine Blood Neg (NEG) Urine Nitrite Neg (NEG) Urine Bilirubin Neg (NEG) Urine Urobilinogen Dipstick 1.0 mg/dL (0.2 mg/dL) Urine Leukocyte Esterase Neg (NEG) Urine RBC 0 /HPF (0-2) Urine WBC 1-4 /HPF (0-4) Urine Squamous Epithelial Cells Occ /LPF Urine Bacteria Few /HPF (0-FEW) Urine Mucus Mod /LPF Current Medications: I have reviewed the current psychotropics carefully including drug interactions. Risk benefit ratio favors no change other than as noted in my dictated progress note. Diagnosis: Problems: (1) Disruptive behavior (2) Anxiety disorder (3) Major neurocognitive disorder, due to vascular disease, with behavioral disturbance, mild (4) Impulse control disorder (5) Dementia, vascular, with delusions (6) Dementia, vascular, with depression (7) Dementia in Alzheimer's disease with delusions (8) Dementia in Alzheimer's disease with depression ELMA DOLAN MD May 08, 2019 21:35
[2019-05-08] MEDS ORDERED: risperiDONE 0.25 MG TABLET. PO SCH (22:00)
--- NOTE | 2019-05-08 23:28 | PN ---
DATE: 05/06/2019 PSYCHIATRIC PROGRESS NOTE This late entry, 05/06, covers elements not covered in my initial note. SUBJECTIVE: I met with the patient evening of 05/06. Per Kaety RN, the patient slept for 3/4 hours previous night. Daughter was unwilling to have a transition to [facility] because she felt the facility was "too dark." She is looking for alternate placement including perhaps [place]. We will defer to social service staff to coordinate this. In the interim, the patient has been somewhat isolated, but appropriate, somewhat withdrawn, wanting to leave. REVIEW OF SYSTEMS: No CV, , pulmonary, eye system symptoms on review. MENTAL STATUS EXAM: Oriented to herself and situation. Speech has some latency, often responses monosyllabic. Abstraction fair, computation impaired, language function intact. Mood and affect withdrawn. LABORATORY DATA: Reviewed. IMPRESSION: Unchanged from initial note. PLAN: No change from initial note. ELMA DOLAN MD DR: YADIRA/nito JOB#: [id number] / [id number]
[2019-05-09] MEDS: LEVOTHYROXINE 75 MCG TABLET PO SCH (05:30)
[2019-05-09] MEDS: ACETAMINOPHEN 325 MG TABLET PO PRN ×2 (05:30→13:10)
[2019-05-09 06:09] VITALS: BP 119/71
[2019-05-09] MEDS ORDERED: HYDROCORTISONE 1% TOPICAL OINTMENT 30GM TUBE. TP PRN (07:15)
[2019-05-09] MEDS: CETIRIZINE HCL 10 MG TABLET PO SCH (08:09)
[2019-05-09] MEDS: predniSONE 10 MG TABLET PO SCH (08:09)
[2019-05-09] MEDS: DIVALPROEX 125 MG CAP.SPRINK PO SCH ×2 (08:10→17:02)
[2019-05-09] MEDS: CITALOPRAM 10 MG TABLET. PO SCH (08:10)
[2019-05-09] MEDS: LACTOBACILLUS RHAMNOSUS GG 1 CAPSULE. PO SCH ×2 (08:10→20:27)
[2019-05-09] MEDS: ASPIRIN 81 MG TAB.CHEW PO SCH (08:10)
[2019-05-09 08:15] LABS: BASO % 0 % (0-3); EOS % 0 % (0-3); HEMATOCRIT 36.3 % (36.0-47.0); HEMOGLOBIN 11.9 g/dL (12.0-15.5); LYMPH # 1.2 x10^3/uL (1.0-4.8); LYMPH % 14 % (24-48); MEAN CORPUSCULAR HEMOGLOBIN 32 pg (25-35); MEAN CORPUSCULAR HGB CONC 33 g/dL (31-37); MEAN CORPUSCULAR VOLUME 97 fL (79-100); MONO % 12 % (0-9); NEUT # 6.1 x10^3uL (1.8-7.7); NEUT % 74 % (31-73); PLATELET COUNT 158 x10^3/uL (140-400); RED BLOOD COUNT 3.74 x10^6/uL (3.50-5.40); RED CELL DISTRIBUTION WIDTH 13.4 % (11.5-14.5); WHITE BLOOD COUNT 8.2 x10^3/uL (4.0-11.0)
[2019-05-09 08:47] LABS: ALBUMIN 2.8 g/dL (3.4-5.0); ALBUMIN/GLOBULIN RATIO 0.7 (1.0-1.7); CALCIUM 8.5 mg/dL (8.5-10.1); CREATININE 1.1 mg/dL (0.6-1.0); GFR 47.7; POTASSIUM 4.1 mmol/L (3.5-5.1); TOTAL BILIRUBIN 0.4 mg/dL (0.2-1.0)
[2019-05-09 15:57] VITALS: BP 125/77
[2019-05-09] MEDS: DONEPEZIL HCL 5 MG TABLET. PO SCH (20:27)
[2019-05-09] MEDS ORDERED: risperiDONE 0.25 MG TABLET. PO SCH (21:00)
--- NOTE | 2019-05-09 21:23 | PDOC ---
Exam Note: Marbin Note: Please also refer to the separate dictated note~for this date of service dictated separately.~Patient seen individually. Discussed the patient with Nursing staff reviewed the chart.~Reviewed interim history and current functioning. Reviewed vital signs,~Labs/ Radiology~and current medications noted below. Continue current treatment with the changes noted in the dictated addendum note Assessment: Vital Signs/I&O: Vital Signs Date Time Temp Pulse Resp B/P (MAP) Pulse Ox O2 Delivery O2 Flow Rate FiO2 05/09/19 15:57 98.3 73 16 125/77 (93) 97 05/08/19 12:00 Room Air 05/07/19 16:17 2.0 I & O 05/08/19 05/08/19 05/09/19 15:00 23:00 07:00 Intake Total 960 ml 60 ml 120 ml Balance 960 ml 60 ml 120 ml Labs: Laboratory Tests Test 05/09/19 07:10 White Blood Count 8.2 x10^3/uL (4.0-11.0) Red Blood Count 3.74 x10^6/uL (3.50-5.40) Hemoglobin 11.9 g/dL (12.0-15.5) L Hematocrit 36.3 % (36.0-47.0) Mean Corpuscular Volume 97 fL (79-100) Mean Corpuscular Hemoglobin 32 pg (25-35) Mean Corpuscular Hemoglobin Concent 33 g/dL (31-37) Red Cell Distribution Width 13.4 % (11.5-14.5) Platelet Count 158 x10^3/uL (140-400) Neutrophils (%) (Auto) 74 % (31-73) H Lymphocytes (%) (Auto) 14 % (24-48) L Monocytes (%) (Auto) 12 % (0-9) H Eosinophils (%) (Auto) 0 % (0-3) Basophils (%) (Auto) 0 % (0-3) Neutrophils # (Auto) 6.1 x10^3uL (1.8-7.7) Lymphocytes # (Auto) 1.2 x10^3/uL (1.0-4.8) Monocytes # (Auto) 1.0 x10^3/uL (0.0-1.1) Eosinophils # (Auto) 0.0 x10^3/uL (0.0-0.7) Basophils # (Auto) 0.0 x10^3/uL (0.0-0.2) Sodium Level 143 mmol/L (136-145) Potassium Level 4.1 mmol/L (3.5-5.1) Chloride Level 107 mmol/L (98-107) Carbon Dioxide Level 27 mmol/L (21-32) Anion Gap 9 (6-14) Blood Urea Nitrogen 24 mg/dL (7-20) H Creatinine 1.1 mg/dL (0.6-1.0) H Estimated GFR (Cockcroft-Gault) 47.7 BUN/Creatinine Ratio 22 (6-20) H Glucose Level 124 mg/dL (70-99) H Calcium Level 8.5 mg/dL (8.5-10.1) Total Bilirubin 0.4 mg/dL (0.2-1.0) Aspartate Amino Transferase (AST) 14 U/L (15-37) L Alanine Aminotransferase (ALT) 21 U/L (14-59) Alkaline Phosphatase 80 U/L (46-116) Total Protein 7.0 g/dL (6.4-8.2) Albumin 2.8 g/dL (3.4-5.0) L Albumin/Globulin Ratio 0.7 (1.0-1.7) L Current Medications: Meds: Current Medications Medications (Trade) Dose Ordered Sig/Michael Route PRN Reason Start Time Stop Time Status Last Admin Dose Admin Prednisone (Prednisone) 10 mg DAILY PO 05/09/19 09:00 05/09/19 08:09 Risperidone (RisperDAL) 0.25 mg QHS PO 05/09/19 21:00 05/09/19 20:27 I have reviewed the current psychotropics carefully including drug interactions. Risk benefit ratio favors no change other than as noted in my dictated progress note. Diagnosis: Problems: (1) Disruptive behavior (2) Anxiety disorder (3) Major neurocognitive disorder, due to vascular disease, with behavioral disturbance, mild (4) Impulse control disorder (5) Dementia, vascular, with delusions (6) Dementia, vascular, with depression (7) Dementia in Alzheimer's disease with delusions (8) Dementia in Alzheimer's disease with depression ELMA DOLAN MD May 09, 2019 21:23
--- NOTE | 2019-05-09 21:47 | PN ---
DATE: 05/07/2019 PSYCHIATRIC PROGRESS NOTE This late entry 05/07/2019 covers elements not covered in my initial note. SUBJECTIVE: I met with the patient in the evening. Per AMOL Del Toro, the patient slept 7-1/4 hours previous night. She has been somewhat tired, but otherwise appropriate. Appetite is fair. REVIEW OF SYSTEMS: No CV, , pulmonary, eye system symptoms on review. MENTAL STATUS EXAM: Oriented to herself and situation. Speech moderate latency, often responses monosyllabic. Abstraction fair, computation impaired, language function intact. Mood and affect withdrawn. LABORATORY DATA: Reviewed. IMPRESSION: Probable bipolar 1 disorder, mixed with psychotic features; mild cognitive impairment; anxiety disorder, unspecified. Rest unchanged. PLAN: Continue psychotropics from initial note. Celexa, Aricept, Zyprexa p.r.n., Risperdal, schedule Depakote as a mood stabilizer. Valproic acid level therapeutic at 52. ELMA DOLAN MD DR: YADIRA/nito JOB#: [id number] / [id number]
--- NOTE | 2019-05-09 21:47 | PN ---
DATE: 05/08/2019 PSYCHIATRIC PROGRESS NOTE This late entry 05/08/2019 covers the elements not covered in my initial note. SUBJECTIVE: I met with the patient in the evening of 05/08/2019. Per AMOL Persaud, the patient slept 6 hours previous night. She was irritable in the morning, complains of pain in left foot. Complains of swelling. We will defer to Dr. Hylton. Late in the evening, she was drooling, quite sedated. We will check her UA, make sure she does not have a UTI and reduce the Risperdal down from 0.75 mg a day to 0.25 mg daily given at night, but for the night of 05/08/2019, we will hold the Risperdal at night. REVIEW OF SYSTEMS: No CV, , pulmonary, eye system symptoms on review. Reliability varies. MENTAL STATUS EXAM: Oriented to herself and situation. Speech has some latency, often responses monosyllabic. Abstraction fair, computation impaired, language function intact. Mood and affect withdrawn. LABORATORY DATA: Reviewed. IMPRESSION: Bipolar disorder, mixed with psychotic features; major neurocognitive disorder, early Alzheimer, vascular with depression, delusion. Rule out urinary tract infection. Rest unchanged. PLAN: Continue psychotropics from initial note other than the changes noted above. Reviewed drug interactions at length. ELMA DOLAN MD DR: YADIRA/nito JOB#: [id number] / [id number]
[2019-05-09] MEDS ORDERED: PRED-220 PO (23:56)
[2019-05-09] MEDS ORDERED: BENZ1LOZ48 PO (23:59)
[2019-05-10] MEDS: LEVOTHYROXINE 75 MCG TABLET PO SCH (04:38)
[2019-05-10] MEDS: ACETAMINOPHEN 325 MG TABLET PO PRN (04:38)
[2019-05-10 06:32] VITALS: BP 102/50
[2019-05-10] MEDS: CETIRIZINE HCL 10 MG TABLET PO SCH (08:18)
[2019-05-10] MEDS: DIVALPROEX 125 MG CAP.SPRINK PO SCH (08:18)
[2019-05-10] MEDS: LACTOBACILLUS RHAMNOSUS GG 1 CAPSULE. PO SCH (08:18)
[2019-05-10] MEDS: ASPIRIN 81 MG TAB.CHEW PO SCH (08:19)
[2019-05-10] MEDS: predniSONE 10 MG TABLET PO SCH (08:19)
[2019-05-10] MEDS: HYDROcodone/APAP 10/325 1 TAB TABLET PO PRN (08:19)
[2019-05-10] MEDS: CITALOPRAM 10 MG TABLET. PO SCH (08:19)
--- NOTE | 2019-05-10 14:32 | DS ---
DATE OF DISCHARGE: 05/10/2019 DISCHARGE SUMMARY AND PSYCHIATRIC PROGRESS NOTE This note covers elements not covered in my initial note 05/10/2019. REASON FOR ADMISSION: Please refer to the admission history for details. Briefly, the patient is an 83-year-old female referred to us from home via the Emergency Room on account of worsening confusion, psychotic symptoms. She was defecating in the backyard, thinking her family was having sex with each other. Thinking the family wanted to rape her. She was delusional, calling her daughter "it." She is very confused, oriented just to herself, appeared demented. As noted below as we stabilized her for the bipolar disorder and the psychosis appeared to improve, she was cognitively much more intact. Adjustments were made in her psychotropics and she seemed to respond to a combination of Risperdal 0.25 mg at bedtime. It was at the higher dosage before this, but she was drooling and sedated and therefore, the dosage was reduced and she tolerated it well. She remained on Celexa 10 mg a day, Aricept 5 mg a day, Zyprexa p.r.n., Depakote Sprinkles 500 mg b.i.d. with a Valproic acid level therapeutic at 52. Depakote was being held if she was sedated. REVIEW OF SYSTEMS: Prior to discharge on 05/10/2019, no CV, , pulmonary, eye system symptoms on review. MENTAL STATUS EXAM: Oriented to herself and situation. Speech coherent, has some latency. Abstraction fair, computation impaired, language function intact. Mood and affect was improved. She does have some short-term memory deficits, but much more cognitively intact than she appeared initially at hospitalization. CONDITION AT DISCHARGE: Improved. FINAL DIAGNOSES: Bipolar 1 disorder, mixed with psychotic features, in partial remission; major neurocognitive disorder, early Alzheimer, vascular with delusion, anxiety disorder, unspecified. Rest unchanged from admission. DISCHARGE MEDICATIONS: Please refer to the MRAD. DISCHARGE INSTRUCTIONS: Outpatient psychiatric and medical followup as arranged prior to discharge. This is to be done at the nursing facility. MAN German DOLAN MD DR: YADIRA/nito JOB#: [id number] / [id number]
--- NOTE | 2019-05-10 21:23 | PDOC ---
Exam Note: Marbin Note: Please also refer to the separate dictated note~for this date of service dictated separately.~Patient seen individually. Discussed the patient with Nursing staff reviewed the chart.~Reviewed interim history and current functioning. Reviewed vital signs,~Labs/ Radiology~and current medications noted below. Continue current treatment with the changes noted in the dictated addendum note Assessment: Vital Signs/I&O: Vital Signs Date Time Temp Pulse Resp B/P (MAP) Pulse Ox O2 Delivery O2 Flow Rate FiO2 05/10/19 09:25 16 05/10/19 06:32 97.2 67 102/50 (67) 96 05/08/19 12:00 Room Air 05/07/19 16:17 2.0 I & O 05/09/19 05/09/19 05/10/19 14:59 22:59 06:59 Intake Total 840 ml 480 ml 120 ml Balance 840 ml 480 ml 120 ml Current Medications: I have reviewed the current psychotropics carefully including drug interactions. Risk benefit ratio favors no change other than as noted in my dictated progress note. Diagnosis: Problems: (1) Anxiety disorder (2) Major neurocognitive disorder, due to vascular disease, with behavioral disturbance, mild (3) Impulse control disorder (4) Dementia, vascular, with delusions (5) Dementia, vascular, with depression (6) Dementia in Alzheimer's disease with delusions (7) Dementia in Alzheimer's disease with depression ELMA DOLAN MD May 10, 2019 21:23
--- NOTE | 2019-05-11 00:35 | PN ---
DATE: 05/09/2019 PSYCHIATRIC PROGRESS NOTE This late entry 05/09/2019 covers the elements not covered in my initial note. SUBJECTIVE: I met with the patient in the evening of 05/09/2019. Per AMOL Vásquez, the patient has been somewhat lethargic, slept 8-1/4 hours. Repeat UA is negative. Complains of increased pain, defer to Dr. Hylton. REVIEW OF SYSTEMS: No CV, , pulmonary, eye system symptoms on review other than above. MENTAL STATUS EXAM: Oriented to herself and situation. No CV, , pulmonary, eye system symptoms on review. Speech moderate latency, often responses monosyllabic. Abstraction fair, computation impaired, language function intact, attention span short. Mood and affect somewhat withdrawn, but as I met with her, she was talking interacting with me a fairly animated. LABORATORY DATA: Reviewed. IMPRESSION: Unchanged from initial note. PLAN: No change from initial note. ELMA DOLAN MD DR: YADIRA/nito JOB#: [id number] / [id number]
[2019-05-25] MEDS ORDERED: CYANOCOBALAMIN (VITAMIN B-12) 1,000 MCG/ML VIAL IM SCH (09:00)
== END 2019-05-10 09:30 | DRG 885 ==
LOC: ER 14:50 → GEROPSY 20:00
PROVIDERS: ADMIT Psychiatry & Neurology Psychiatry; ATTEND Psychiatry & Neurology Psychiatry
DX: F31.64 Bipolar disorder, current episode mixed, severe, with psychotic features (principal); F01.51 Vascular dementia, unspecified severity, with behavioral disturbance; F02.81 Dementia in other diseases classified elsewhere, unspecified severity, with behavioral disturbance; G30.9 Alzheimer's disease, unspecified; E03.9 Hypothyroidism, unspecified; E11.9 Type 2 diabetes mellitus without complications; K21.9 Gastro-esophageal reflux disease without esophagitis; I10 Essential (primary) hypertension; E87.6 Hypokalemia; D64.9 Anemia, unspecified; F43.10 Post-traumatic stress disorder, unspecified; F63.9 Impulse disorder, unspecified; Z79.899 Other long term (current) drug therapy
CPT/HCPCS: 36415; 73130; 73200; 73630; 78300; 80048; 80053; 80061; 80164; 81001; 82140; 82306; 82607; 82947; 83036; 83540; 83550; 83735; 84436; 84443; 84480; 84550; 85007; 85025; 85027; 85651; 86140; 86592; 87086; 87186; 93005; 93971; A9503; J3420; J7509; J7512; 99285-25